=== PATIENT | male | born 1955 | race Caucasian/White ===

== ENCOUNTER → 2016-12-21 | Outpatient (CLI) | payer OTHER ==
[~2016-12-21] MED LIST: ACET-749 PO; AMLO-110 PO; ASCO1CAP3 PO; ASPCH81X PO; ASPI81TA28 PO; CEFT1INJ57 IV; CIPR1TAB10 PO; CLC100 PO; CMD5 PO; COEN100C11 PO; DOCU-94 PO; DOCU100C31 PO; DOXY100T PO; DTR5 PO; ENOX40IN SQ; EYE OPB; LOSA1TAB PO; LPR25 PO; LUTE6CAP PO; MULT-506 PO; OXYC-57 PO; SIMV20TA2 PO; TADA10TA PO; TADA20TA PO
[2016-12-21 14:33] LABS: BASO % 0.9 %; BASO ABS # 0.06 K/uL (0-0.2); COMPLETE YES; EOS % 5.2 %; HEMATOCRIT 47.4 % (42-52); IG% 0.6 %; LYMPH % 30.3 %; LYMPH ABS # 2.04 K/uL (1.2-3.4); MEAN CELL VOLUME 87.8 fL (80-100); MEAN CORPUSCULAR HEMOGLOBIN 31.5 pg (25-34); MEAN CORPUSCULAR HGB CONC 35.9 g/dl (32-36); MEAN PLATELET VOLUME 9.5 fL (7.4-10.4); MONO % 9.8 %; NEUT % 53.2 %; PLATELET COUNT 212 K/uL (130-400); WHITE BLOOD COUNT 6.73 K/uL (4.8-10.8)
[2016-12-21 16:24] LABS: ALT/SGPT 34 U/L (12-78); BLOOD UREA NITROGEN 18 mg/dl (7-18); BUN/CREATININE RATIO 13.5 (10-20); CALCIUM 8.9 mg/dl (8.5-10.1); CARBON DIOXIDE 26 mmol/L (21-32); CHLORIDE 105 mmol/L (98-107); CHOLESTEROL 156 mg/dl (0-200); GLUCOSE 115 mg/dl (70-99); POTASSIUM 4.5 mmol/L (3.5-5.1); SODIUM 141 mmol/L (136-145); TRIGLYCERIDES 114 mg/dl (0-150); VERY LOW DENSITY LIPOPROT CALC 23 mg/dl
[2016-12-21 16:29] LABS: ALB/GLOB RATIO 1.1 (0.9-2); ALKALINE PHOSPHATASE 66 U/L (45-117); AST/SGOT 25 U/L (15-37); CHOLESTEROL/HDL RATIO 3.6; HDL CHOLESTEROL 43 mg/dl; LDL CHOLESTEROL CALCULATED 90 mg/dl
== END | disposition home or self-care (01) ==
LOC: C.LABSPEC 13:36
PROVIDERS: ATTEND Family Medicine
DX: E78.2 Mixed hyperlipidemia (principal); I10 Essential (primary) hypertension; Z11.59 Encounter for screening for other viral diseases

== ENCOUNTER → 2016-12-25 | Outpatient (CLI) | payer OTHER | END | disposition home or self-care (01) | LOC: C.LABSPEC 13:56 | PROVIDERS: ATTEND Family Medicine | DX: R97.20 Elevated prostate specific antigen [PSA] (principal) ==

== ENCOUNTER → 2017-02-18 | Outpatient (CLI) | payer OTHER | LOC: C.PATHSPEC 17:50 | PROVIDERS: ATTEND Urology | DX: C61 Malignant neoplasm of prostate (principal) ==

== ENCOUNTER → 2017-03-15 | Outpatient (CLI) | payer OTHER ==
[~2017-03-15] MED LIST changes: +OPTIRAY 320 IV PRN
--- NOTE | 2017-03-15 08:01 | DIAGNOSTIC IMAGING REPORT ---
CT ABD/PELVIS IV CONTRAST ONLY CLINICAL HISTORY: C61 Prostate cancer COMPARISON STUDY: None. TECHNIQUE: Following the IV administration of 94 mL of Optiray-320, CT scan of the abdomen and pelvis was performed from the lung bases to the proximal femurs. Images are reviewed in the axial, sagittal, and coronal planes. IV contrast was administered without complication. CT DOSE: 1520.18 mGy.cm FINDINGS: Lower chest: There are mild right paraspinal atelectatic changes within the right lower lobe. Liver: There is mild hepatic steatosis. No focal masses are visualized. Gallbladder: Unremarkable. Spleen: Normal in size and attenuation. Pancreas: Unremarkable. Adrenal glands: Unremarkable. Kidneys: The 17 mm upper pole left renal cyst. No solid renal masses are visualized. There is no hydronephrosis. Bowel: There are no transition zones indicate bowel obstruction. The appendix appears normal. There is colonic diverticulosis. There are no acute peridiverticular inflammatory changes. Peritoneum: There is no free air. There is no ascites. There are postsurgical changes of a gastric banding procedure. Vasculature: The abdominal aorta is normal in course and caliber. Adenopathy: None. Pelvic viscera: The bladder, and pelvic viscera are unremarkable. Skeletal structures: No suspicious lytic or blastic lesions are visualized. IMPRESSION: No CT evidence of metastatic disease. Electronically signed by: Jl Gallego M.D. 03/15/2017 8:00 AM Dictated Date/Time: 03/15/2017 7:55 AM
--- NOTE | 2017-03-15 11:09 | DIAGNOSTIC IMAGING REPORT ---
WHOLE BODY BONE SCAN HISTORY: Prostate carcinoma C61 Prostate cancer RADIOTRACER: 26.1 mCi Tc-99m MDP STUDY/IMAGES: Planar anterior and posterior whole body imaging was performed 3 hours following the intravenous administration of radiotracer. COMPARISON: None. FINDINGS: Normal activity characteristics of the axial and appendicular skeleton. Minimal degenerative activity right knee. Minimal degenerative activity of the sternoclavicular and acromioclavicular joints. No evidence for bony metastatic change. IMPRESSION: Study is negative for metastatic bone disease. Electronically signed by: José Youngblood M.D. 03/15/2017 11:08 AM Dictated Date/Time: 03/15/2017 11:07 AM
== END ==
LOC: C.NUCL 06:56
PROVIDERS: ATTEND Urology
DX: C61 Malignant neoplasm of prostate (principal)

== ENCOUNTER 2017-05-11 09:44 | Inpatient (IN) | payer OTHER ==
[2017-04-29 14:38] VITALS: BMI 41.0
--- NOTE | 2017-04-29 15:24 | PAT Medication Instructions ---
Service Date Apr 29, 2017. Current Home Medication List Amlodipine (Norvasc), 5 MG PO QPM Ascorbic Acid (Vitamin C), 1 CAP PO QAM Aspirin (Aspirin Chewable), 81 MG PO QAM Coenzyme Q10 (Ubidecarenone) (Coq-10), 1 CAP PO QPM Losartan Potassium (Cozaar), 1 TAB PO QPM Lutein (Lutein), 1 CAP PO QAM Multivitamin (Multivitamin), 1 TAB PO QAM Simvastatin (Zocor), 1 TAB PO QPM Tadalafil (Cialis), 5 MG PO UD Medication Instructions For Your Scheduled Surgery - Hold the following medications starting 04/29/17: Coenzyme Q10 (Ubidecarenone) (Coq-10), 1 CAP PO QPM - Hold the following medications the morning of surgery: Multivitamin (Multivitamin), 1 TAB PO QAM Lutein (Lutein), 1 CAP PO QAM Ascorbic Acid (Vitamin C), 1 CAP PO QAM Tadalafil (Cialis), 5 MG PO UD PRN - Take the following medications the morning of surgery with a sip of water: Aspirin (Aspirin Chewable), 81 MG PO QAM (okay to continue per surgeon) - Hold the following medications as scheduled the night before surgery: Losartan Potassium (Cozaar), 1 TAB PO QPM - Take the following medications as scheduled the night before surgery: Simvastatin (Zocor), 1 TAB PO QPM Amlodipine (Norvasc), 5 MG PO QPM Tadalafil (Cialis), 5 MG PO UD PRN If you have any questions please call us at [phone] or [phone] or [phone]
--- NOTE | 2017-04-29 15:51 | DIAGNOSTIC IMAGING REPORT ---
CHEST PREADMISSION(PA/LAT) CLINICAL HISTORY: PAT preoperative evaluation COMPARISON STUDY: No previous studies for comparison. FINDINGS: The bones soft tissues and hemidiaphragms are normal. The cardiomediastinal silhouette is normal. The lungs are clear. The pulmonary vasculature is normal. IMPRESSION: Negative chest. Electronically signed by: José Youngblood M.D. 04/29/2017 3:50 PM Dictated Date/Time: 04/29/2017 3:50 PM
[2017-04-29 15:54] LABS: URINE APPEARANCE CLEAR (CLEAR); URINE BILIRUBIN NEG (NEG); URINE COLOR YELLOW; URINE NITRITE NEG (NEG); URINE PH 5.5 (4.5-7.5); UROBILINOGEN NEG (NEG)
[2017-04-29 15:55] LABS: MANUAL MICROSCOPIC REQUIRED? NO; REVIEW REQ? NO
[2017-04-29 15:56] LABS: BASO % 0.7 %; BASO ABS # 0.05 K/uL (0-0.2); COMPLETE YES; EOS % 4.4 %; HEMATOCRIT 46.9 % (42-52); IG% 0.4 %; LYMPH % 29.1 %; LYMPH ABS # 2.11 K/uL (1.2-3.4); MEAN CELL VOLUME 89.7 fL (80-100); MEAN CORPUSCULAR HEMOGLOBIN 31.7 pg (25-34); MEAN CORPUSCULAR HGB CONC 35.4 g/dl (32-36); MEAN PLATELET VOLUME 9.3 fL (7.4-10.4); MONO % 8.1 %; NEUT % 57.3 %; PLATELET COUNT 210 K/uL (130-400); RED BLOOD COUNT 5.23 M/uL (4.7-6.1); WHITE BLOOD COUNT 7.26 K/uL (4.8-10.8)
[2017-04-29 16:57] LABS: BUN/CREATININE RATIO 13.8 (10-20); CREATININE 1.3 mg/dl (0.60-1.40); POTASSIUM 4.6 mmol/L (3.5-5.1)
[~2017-05-11] VITALS: Ht 180.3 cm; Wt 134.1 kg
[2017-05-11] VITALS (7 sets, daily range): BP systolic 113–137; BP diastolic 76–95; PULSE 83–92; TEMP 36.1–36.7; O2SAT 92–97; Ht 180.3 cm; Wt 134.1 kg
[~2017-05-11 09:44] MED LIST changes: -ACET-749 PO; -AMLO-110 PO; -ASCO1CAP3 PO; -ASPI81TA28 PO; +CEFAZOLIN 2000 MG/60 ML D5W IV SCH; +CEFAZOLIN 3000 MG/65 ML D5W 65 ML IV SCH; -CEFT1INJ57 IV; -CIPR1TAB10 PO; -CLC100 PO; -CMD5 PO; -COEN100C11 PO; -DOCU-94 PO; -DOCU100C31 PO; -DOXY100T PO; -DTR5 PO; -ENOX40IN SQ; -EYE OPB; +HEPARIN SOD 5000 UNIT/0.5 ML CARP SQ SCH; +LACTATED RINGER'S 1000ML 1,000 ML IV SCH; -LOSA1TAB PO; -LPR25 PO; -LUTE6CAP PO; -MULT-506 PO; -OPTIRAY 320 IV PRN; -OXYC-57 PO; -SIMV20TA2 PO; -TADA20TA PO
--- NOTE | 2017-05-11 10:21 | History & Physical Bridge Note ---
H&P Re-Evaluation Bridge Note: I have examined the patient, reviewed the History & Physical and in the interval since the performance of the History & Physical I have noted the following changes of clinical significance: No changes noted
[2017-05-11] MEDS ORDERED: DEXAMETHASONE SOD INJ 4 MG/ML VIAL ONE (10:23)
[2017-05-11] MEDS ORDERED: BUPIVACAINE 0.5 % 5 MG/1 ML MPF 30ML VIAL ONE (10:23)
[2017-05-11] MEDS ORDERED: NEOSTIGMINE METHYLSULFATE 5 MG/5 ML SYR ONE (10:23)
[2017-05-11] MEDS ORDERED: ONDANSETRON INJ 2 MG/ML 2 ML VIAL ONE ×2 (10:23→13:30)
[2017-05-11] MEDS ORDERED: METHYLENE BLUE 0.5% 10 ML VIAL ONE (10:23)
[2017-05-11] MEDS ORDERED: PROPOFOL IV EMULSION 10 MG/ML 20 ML VIAL IV ONE (10:23)
[2017-05-11] MEDS ORDERED: FENTANYL CITRATE INJ 50 MCG/1 ML 2 ML VIAL ONE ×3 (10:23→13:25)
[2017-05-11] MEDS ORDERED: MIDAZOLAM HCL 1 MG/ML 2ML VIAL ONE (10:23)
[2017-05-11] MEDS ORDERED: GLYCOPYRROLATE INJ 0.2 MG/ML VIAL ONE (10:23)
[2017-05-11] MEDS ORDERED: EYE OPB (10:24)
[2017-05-11] MEDS ORDERED: BELLADONNA/OPIUM SUPP 60 MG SUPP PR ONE ×2 (11:16→11:18)
[2017-05-11] MEDS ORDERED: HYDROmorphone INJ 2 MG/ML SYR/VIAL ONE (11:27)
[2017-05-11] MEDS ORDERED: ACETAMINOPHEN 1000 MG/100 ML IV IV ONE (12:19)
[2017-05-11] MEDS ORDERED: SURGICEL ABSORB HEMOSTAT 2IN X 14IN TOP ONE (12:51)
[2017-05-11] MEDS ORDERED: FLOSEAL HEMOSTATIC MATRIX 10ML TOP ONE (12:51)
[2017-05-11] MEDS ORDERED: METOPROLOL TARTRATE 1 MG/ML VIAL ONE (13:25)
[2017-05-11] MEDS ORDERED: EpHEDrine SULFATE INJ 50 MG/ML AMP IV PRN (13:30)
[2017-05-11] MEDS ORDERED: HYDROmorphone INJ 1 MG/ML SYR IV PRN ×2 (13:30→13:45)
[2017-05-11] MEDS ORDERED: PROMETHAZINE HCL INJ 6.25 MG in SODIUM CHLORIDE 0.9% 50ML 50 ML IV PRN (13:30)
[2017-05-11] MEDS ORDERED: ATROPINE SULFATE 0.1 MG/ML 5ML SYR IV PRN (13:30)
[2017-05-11] MEDS ORDERED: ONDANSETRON INJ 2 MG/ML 2 ML VIAL IV PRN ×2 (13:30→13:45)
[2017-05-11] MEDS ORDERED: FENTANYL CITRATE INJ 50 MCG/1 ML 2 ML VIAL IV PRN (13:30)
[2017-05-11] MEDS ORDERED: SODIUM CHLORIDE 0.9% INJ 10 ML VIAL ONE (13:39)
[2017-05-11] MEDS ORDERED: KETOROLAC TROMETHAMINE 30 MG/ML VIAL IV. PRN (13:45)
[2017-05-11] MEDS ORDERED: OXYBUTYNIN CHLORIDE 5 MG TAB PO PRN (13:45)
[2017-05-11] MEDS ORDERED: ACETAMINOPHEN/CODEINE 300/30MG TAB PO PRN (13:45)
--- NOTE | 2017-05-11 14:10 | [facility] Operative Report ---
Operative Report Operative Date May 11, 2017. Pre-Operative Diagnosis Prostate cancer Post-Operative Diagnosis Same as preoperative diagnosis Procedure(s) Performed Laparoscopic Prostatectomy and bilateral pelvic lymph node dissection Juany Surgeon Dr. Hudson Sole Seamer Surgeon(s) NENITA Randolph Estimated Blood Loss 100 mL Findings As per dictation Specimens Permanent Specimens A: Periprostatic Fat B: Prostate and seminal vesicles C: Right pelvic lymph nodes D: Left pelvic lymph nodes Drains Zapata catheter Anesthesia Gen. Complication(s) None Disposition Recovery Room / PACU (stable) Indications Prostate cancer Description of Procedure Javad Sesay was identified in the preoperative holding area and appropriate informed consents were reviewed and completed and the patient was transported to the operating suite. Upon arrival to received appropriate preoperative antibiotics in the form of Ancef as well as general anesthesia. He was placed in dorsal lithotomy position where he was sterilely prepped and draped in standard fashion. Beginning the case a Zapata catheter was inserted. A Veress needle was then passed per umbilicus. His abdomen was insufflated to 15 mmHg without incident. I proceeded to place a 12 mm Visiport with 10 mm 0 laparoscope via a supra umbilical incision. Full inspection of the abdomen was carried out. There is no evidence of trauma from the Veress needle passage. Anterior abdominal wall was free of adhesions and all desired port sites were clear of adhesions. I proceeded to place all ports in standard robotic prostatectomy fashion. We then docked the robot. To begin the robotic portion of the case I mobilized the left lateral aspect of the sigmoid colon with there were slight adhesions. This opened the pouch of Joshua completely. I then proceeded to incise the peritoneum lateral to the umbilical ligaments on both the right and the left. I transected the umbilical ligaments at the inferior aspect of the umbilicus. I cared my peritoneal incision down to the medial aspect of the internal inguinal rings on both the right and the left. I identified the vasa in both locations. I then proceeded to dissect underneath the pubic arch exposing the anterior surface the prostate. Superficial fat was excised from the prostate as well as the endopelvic fascia. Then proceeded to open endopelvic fascia beginning at the right base and caring my dissection towards the apex. The lateral levator musculature was spared. All periurethral musculature was spared. The lateral aspect of the urethra was visualized. A mirro image procedure was performed in the left side. After thinning the puboprostatic ligaments slightly bilaterally I controlled the dorsal venous complex utilizing a 0 Vicryl [id number] stitch. There was excellent hemostasis. I then moved on to the lymph node dissection. Vasculature on the lateral pelvic wall was identified. I elevated the fat off the inferior aspect of the external iliac vein. A separate this from the remaining cared my dissection laterally as far as the circumflex vein. The lymphatic packet immediately posterior to this fat was excised en bloc. I utilized monopolar and bipolar electrocautery to obtain excellent hemostasis. I carried my dissection posteriorly and distally as far as the obturator nerve. Extreme care was used to preserve the nerve. I control the most proximal extent of this packet utilizing bipolar electrocautery. This lymphatic packet was then withdrawn via the 12 mm senior executive assistant port. I then performed the same procedure on the left side. After identifying the vascular elements of the left pelvic wall, I elevated the fat off the inferior aspect of the external iliac vein. I dissected laterally as far as the circumflex vein. Lymphatic packet immediately behind this fatty tissue was excised. I cared my dissection inferior to the pubic arch until I encountered the obturator nerve. Care was used to preserve the nerve. The packet was traced up the nerve to its most proximal extent. I controlled the proximal extent of this packet utilizing bipolar electrocautery. This specimen was withdrawn via the 12 mm senior executive assistant port. I then returned to my attention to the prostate. With gentle traction on the Zapata catheter and lateral to medial traction from my instruments I was able to demarcate the bladder neck. An anterior cystotomy was created utilizing monopolar electrocautery. I deflated the Zapata balloon and pulled Zapata catheter through this anterior cystotomy to apply anterior traction on the prostate. I then dissected laterally around the bladder neck attempting to spare all bladder neck musculature. I carried my dissection through the posterior bladder neck identifying the different layers of the detrusor muscle. This dissection was completed when I reached the vasa. The vasa were then dissected for approximately 3-4 cm in length. They were subsequently transected. I utilized these vasa to help elevate the prostate further while I dissected the bilateral seminal vesicles without incident. Minimal cautery was used around these seminal vesicles and at that bipolar cautery only. There was excellent hemostasis. I then utilized the seminal vesicles to help elevate the prostate while I performed a posterior dissection. I split Denonvilliers's fascia as I dissected from the base towards the apex of the prostate. After carrying this maximally towards the apex I proceeded to dissect laterally until I encountered in the medial aspect of the neurovascular bundles. I then turned my attention to the control of the vascular pedicles. The lateral prostatic fascia was incised. The vascular pedicles were divided into approximately 4 packets and controlled with Weck clips. On the right hand side I performed an aggressive nerve sparing. On the left- hand side, I performed a more guarded nerve sparing. At that time only apical attachments remained. With a Zapata catheter in place, I was able to dissect through the dorsal venous complex immediately proximal to the previously placed DVC stitch. The apex of the prostate was dissected utilizing a combination of monopolar electrocautery and sharp dissection. After sparing maximal urethral length, I transected the urethra cold over top of the Zapata catheter. The prostate was then removed and was collected in an Endo Catch bag and passed to the upper abdomen. I ensured excellent hemostasis from the prostatic fossa before proceeding. I then passed a double armed V lock stitch into the abdomen. A standard running anastomosis was performed beginning at the posterior bladder neck and completed at the anterior surface of the anastomosis. There appeared to be excellent approximation. A new Zapata catheter was inserted without incident. The anastomosis was tested with sterile saline, there is no evidence of leak. We then placed FloSeal coagulant around the anastomosis. No CHARO drain was used . A specimen bag was collected through the camera port. The robot was undocked. The proceeded to expand the supraumbilical port to extract the specimen. Fascia was closed with 3 figure-of -eight 0 PDS stitches. All robotic ports were closed with 4-0 Monocryl. The right lateral most senior executive assistant port was closed utilizing 2 layers. The deep layer of 0 Vicryl [id number] fashion followed by 4-0 Monocryl on the skin. All wounds were infiltrated with half percent Marcaine. Dermabond was placed over the incisions. The case was subsequently concluded and the patient was extubated and taken to the PACU in stable condition. There were no complications. I attest to the content of the Intraoperative Record and any orders documented therein. Any exceptions are noted below. I attest to the content of the Intraoperative Record and any orders documented therein. Any exceptions are noted below.
[2017-05-11 14:43] LABS: HEMATOCRIT 46.3 % (42-52); MEAN CELL VOLUME 90.3 fL (80-100); MEAN CORPUSCULAR HEMOGLOBIN 31.8 pg (25-34); MEAN PLATELET VOLUME 9.1 fL (7.4-10.4); PLATELET COUNT 206 K/uL (130-400); RED BLOOD COUNT 5.13 M/uL (4.7-6.1); WHITE BLOOD COUNT 10.05 K/uL (4.8-10.8)
[2017-05-11 14:52] LABS: MEAN CORPUSCULAR HGB CONC 35.2 g/dl (32-36)
[2017-05-11 15:11] LABS: BUN/CREATININE RATIO 11.9 (10-20); CALCIUM 8.8 mg/dl (8.5-10.1); CREATININE 1.3 mg/dl (0.60-1.40); POTASSIUM 4.8 mmol/L (3.5-5.1)
--- NOTE | 2017-05-11 15:20 | Anesthesiology Progress Note ---
Anesthesia Post Op Note Date & Time May 11, 2017 at 15:20 Vital Signs Pain Intensity: 0 Vital Signs Past 12 Hours Date Time Temp Pulse Resp B/P (MAP) Pulse Ox O2 Delivery O2 Flow Rate FiO2 05/11/17 14:47 36.2 80 20 109/83 96 Nasal Cannula 2 05/11/17 14:01 36.2 100 16 129/84 97 Mask 10 05/11/17 10:14 36.6 88 18 131/87 (102) 97 Room Air Notes Mental Status: alert / awake / arousable, participated in evaluation Pt Amnestic to Procedure: Yes Nausea / Vomiting: adequately controlled Pain: adequately controlled Airway Patency, RR, SpO2: stable & adequate BP & HR: stable & adequate Hydration State: stable & adequate Anesthetic Complications: no major complications apparent
[2017-05-11 17:49] LABS: INR 1.1 (0.9-1.1); PROTHROMBIN TIME (PATIENT) 11.5 SECONDS (9.0-12.0)
[2017-05-11] MEDS: CEFAZOLIN IV 3,000 MG in DEXTROSE 5% 50ML 50 ML IV SCH (17:59)
[2017-05-11] MEDS: ACETAMINOPHEN 500 MG TAB PO SCH (18:00)
[2017-05-11] MEDS: LACTATED RINGER'S 1000ML 1,000 ML IV SCH (18:00)
[2017-05-11] MEDS ORDERED: AMLODIPINE BESYLATE 5 MG TAB PO SCH (21:00)
[2017-05-11] MEDS ORDERED: LOSARTAN POTASSIUM 25 MG TAB PO SCH (21:00)
[2017-05-11] MEDS ORDERED: ARTIFICIAL TEARS OP OINT 3.5 GM TUBE OPB SCH (21:00)
[2017-05-11] MEDS ORDERED: SIMVASTATIN 20 MG TAB PO SCH (21:00)
[2017-05-11] MEDS: DOCUSATE SODIUM 100 MG CAP PO SCH (21:04)
[2017-05-11] MEDS: HEPARIN SOD 5000 UNIT/0.5 ML CARP SQ SCH (22:06)
[2017-05-12] MEDS: LACTATED RINGER'S 1000ML 1,000 ML IV SCH ×3 (00:51→12:30)
[2017-05-12] MEDS: ACETAMINOPHEN 500 MG TAB PO SCH ×3 (00:51→12:36)
[2017-05-12] MEDS: CEFAZOLIN IV 3,000 MG in DEXTROSE 5% 50ML 50 ML IV SCH ×2 (02:21→10:26)
[2017-05-12 03:25] VITALS: BP 109/68; PULSE 82; TEMP 36.7; O2SAT 94
[2017-05-12 06:48] LABS: MEAN CORPUSCULAR HGB CONC 34.5 g/dl (32-36); MEAN PLATELET VOLUME 9.3 fL (7.4-10.4); PLATELET COUNT 236 K/uL (130-400)
[2017-05-12 07:24] LABS: BUN/CREATININE RATIO 12.9 (10-20); CALCIUM 8.8 mg/dl (8.5-10.1); CREATININE 1.2 mg/dl (0.60-1.40); POTASSIUM 4.5 mmol/L (3.5-5.1)
--- NOTE | 2017-05-12 07:35 | Anesthesiology Progress Note ---
Anesthesia Post Op Note Date & Time May 12, 2017 at 07:34 Vital Signs Vital Signs Past 12 Hours Date Time Temp Pulse Resp B/P (MAP) Pulse Ox O2 Delivery O2 Flow Rate FiO2 05/12/17 03:25 36.7 82 18 109/68 (82) 94 Room Air 05/12/17 00:05 Room Air 05/11/17 23:08 36.6 83 19 116/77 (90) 94 Room Air Notes Mental Status: alert / awake / arousable, participated in evaluation Pt Amnestic to Procedure: Yes Nausea / Vomiting: adequately controlled Pain: adequately controlled Airway Patency, RR, SpO2: stable & adequate BP & HR: stable & adequate Hydration State: stable & adequate Anesthetic Complications: no major complications apparent
[2017-05-12 07:41] LABS: BASO % 0.1 %; BASO ABS # 0.01 K/uL (0-0.2); COMPLETE YES; HEMATOCRIT 45.5 % (42-52); IG% 0.3 %; LYMPH % 9.9 %; LYMPH ABS # 1.68 K/uL (1.2-3.4); MEAN CELL VOLUME 89.2 fL (80-100); MEAN CORPUSCULAR HEMOGLOBIN 30.8 pg (25-34); MONO % 5.8 %; NEUT % 83.9 %; WHITE BLOOD COUNT 16.96 K/uL (4.8-10.8)
--- NOTE | 2017-05-12 08:04 | Progress Note ---
Progress Note Date of Service May 12, 2017. Progress Note S: Doing well - ambulatory last night - denies any pain - tolerating PO O: 05/12/17 05:51 Red Blood Count 5.10, Mean Corpuscular Volume 89.2, Mean Corpuscular Hemoglobin 30.8, Mean Corpuscular Hemoglobin Concent 34.5, Mean Platelet Volume 9.3, Neutrophils (%) (Auto) 83.9, Lymphocytes (%) (Auto) 9.9, Monocytes (%) (Auto) 5.8, Eosinophils (%) (Auto) 0.0, Basophils (%) (Auto) 0.1, Neutrophils # (Auto) 14.24, Lymphocytes # (Auto) 1.68, Monocytes # (Auto) 0.98, Eosinophils # (Auto) 0.00, Basophils # (Auto) 0.01 05/12/17 05:51 Test 05/11/17 17:29 05/12/17 05:51 Prothrombin Time 11.5 SECONDS (9.0-12.0) Prothromb Time International Ratio 1.1 (0.9-1.1) White Blood Count 16.96 K/uL (4.8-10.8) Red Blood Count 5.10 M/uL (4.7-6.1) Hemoglobin 15.7 g/dL (14.0-18.0) Hematocrit 45.5 % (42-52) Mean Corpuscular Volume 89.2 fL (80-100) Mean Corpuscular Hemoglobin 30.8 pg (25-34) Mean Corpuscular Hemoglobin Concent 34.5 g/dl (32-36) Platelet Count 236 K/uL (130-400) Mean Platelet Volume 9.3 fL (7.4-10.4) Neutrophils (%) (Auto) 83.9 % Lymphocytes (%) (Auto) 9.9 % Monocytes (%) (Auto) 5.8 % Eosinophils (%) (Auto) 0.0 % Basophils (%) (Auto) 0.1 % Neutrophils # (Auto) 14.24 K/uL (1.4-6.5) Lymphocytes # (Auto) 1.68 K/uL (1.2-3.4) Monocytes # (Auto) 0.98 K/uL (0.11-0.59) Eosinophils # (Auto) 0.00 K/uL (0-0.5) Basophils # (Auto) 0.01 K/uL (0-0.2) RDW Standard Deviation 44.6 fL (36.4-46.3) RDW Coefficient of Variation 13.6 % (11.5-14.5) Immature Granulocyte % (Auto) 0.3 % Immature Granulocyte # (Auto) 0.05 K/uL (0.00-0.02) Anion Gap 10.0 mmol/L (3-11) Est Creatinine Clear Calc Drug Dose 88.0 ml/min Estimated GFR () 74.1 Estimated GFR (Non- 64.0 BUN/Creatinine Ratio 12.9 (10-20) Calcium Level 8.8 mg/dl (8.5-10.1) Vital Signs Past 12 Hours Date Time Temp Pulse Resp B/P (MAP) Pulse Ox O2 Delivery O2 Flow Rate FiO2 05/12/17 03:25 36.7 82 18 109/68 (82) 94 Room Air 05/12/17 00:05 Room Air 05/11/17 23:08 36.6 83 19 116/77 (90) 94 Room Air NAD AAOx3 no resp distress abd soft - incisions without signs of infection no lower extremity edema A/P: POD#1 s/p RALP - doing very well - advance diet - ambulate - home later today with a catheter
[2017-05-12 08:17] VITALS: BP 130/76; PULSE 70; TEMP 36.6; O2SAT 93
[2017-05-12] MEDS ORDERED: MULTIVITAMIN TAB PO SCH (09:00)
[2017-05-12] MEDS ORDERED: ASCORBIC ACID 500 MG TAB PO SCH (09:00)
[2017-05-12] MEDS ORDERED: NON-FORMULARY MEDICATION (Lutein 1 CAP) PO SCH (09:00)
[2017-05-12] MEDS ORDERED: ASPIRIN 81 MG ECTAB PO SCH (09:00)
[2017-05-12] MEDS: DOCUSATE SODIUM 100 MG CAP PO SCH (09:14)
[2017-05-12] MEDS ORDERED: DTR5 PO (09:23)
[2017-05-12] MEDS ORDERED: CLC100 PO (09:23)
[2017-05-12] MEDS ORDERED: CIPR1TAB10 PO (09:23)
[2017-05-12] MEDS ORDERED: ACET-749 PO (09:23)
--- NOTE | 2017-05-12 09:26 | Discharge Instructions ---
Discharge Instructions Date of Service May 12, 2017. Admission Reason for Admission: Prostate Cancer Discharge Discharge Diagnosis / Problem: Prostate Cancer Discharge Goals Goal(s): Decrease discomfort, Increase independence, Improve disease control, Therapeutic intervention Activity Recommendations Activity Limitations: per Instructions/Follow-up section Shower/Bathe: tomorrow 1. Do not lift >15lbs x 6 weeks. 2. No heavy exercise x 6 weeks. You may engage in light activity such as walking and stairs as tolerated. 3. No sexual intercourse until cleared by Dr. Daigle or Dr. Hudson. 4. Do not drive x [address] while taking narcotics. 5. You have been prescribed the antibiotic Ciprofloxacin. Start this antibiotic 2 days prior to leon catheter removal. Finish all of the antibiotic you have been prescribed. 6. Immediately call our office at [phone] if your catheter is removed for any reason. 7. Follow-up as scheduled. Please call our office at [phone] if you need to reschedule for any reason. 8. You may resume taking Cialis after cleared to do so by Dr. Hudson. . Current Hospital Diet Hospital Diet(s): Regular Diet Discharge Diet Recommended Diet: AHA Diet (Heart Healthy) Procedures Procedures Performed: Laparoscopic Prostatectomy and bilateral pelvic lymph node dissection DaVinci Pending Studies Studies pending at discharge: yes (prostate pathology) List of pending studies: prostate and lymph node pathology Medical Emergencies . Who to Call and When: Medical Emergencies: If at any time you feel your situation is an emergency, please call 911 immediately. . Non-Emergent Contact Non-Emergency issues call your: Urologist Call Non-Emergent contact if: temperature is above 101.5, your pain is not controlled, your pain is worsening, your pain is unusual for you, your pain is concerning you, wound has increased drainage, wound has increased redness, wound has increased pain, you have any medication questions . . "Provider Documentation" section prepared by Lexus Nuno. . VTE Core Measure Inpt VTE Proph given/why not?: Unfractionated heparin SQ, SCD's [place] Drug Monitoring Program Search Results: patient reviewed within database, no issues identified
[2017-05-12 10:06] VITALS: O2SAT 93
[2017-05-12] MEDS: HEPARIN SOD 5000 UNIT/0.5 ML CARP SQ SCH (10:31)
[2017-05-12 11:53] VITALS: BP 146/82; PULSE 69; TEMP 36.6; O2SAT 95
[2017-05-12 13:20] VITALS: BP 146/82; PULSE 69; TEMP 36.6; O2SAT 95
--- NOTE | 2017-05-17 07:19 | Discharge Summary ---
Discharge Summary Date of Service May 17, 2017. Discharge Summary Admission Date: May 11, 2017 at 10:35 Discharge Date: May 12, 2017 Discharge Disposition: Home Principal Diagnosis: Prostate cancer Procedures: Robotic prostatectomy with lymph node dissection Medication Reconciliation New Medications: Ciprofloxacin Hcl (Cipro) 500 Mg Tab 500 MG PO BID, #10 TAB Start 2 days prior to leon catheter removal. Acetaminophen/Codeine (Tylenol W/Codeine #3) 300 Mg/30 Mg Tab 1-2 TAB PO Q4H PRN for Pain, #20 TAB 0 Refills Docusate Sodium (Docusate Sodium) 100 Mg Cap 100 MG PO BID PRN for Constipation, #60 CAP 0 Refills Oxybutynin Chloride (Oxybutynin Chloride) 5 Mg Tab 5 MG PO Q8H PRN for BLADDER SPASMS, #30 TAB 0 Refills Continued Medications: Amlodipine (Norvasc) 5 Mg Tab 5 MG PO QPM, TAB Ascorbic Acid (Vitamin C) 500 Mg Cap 1 CAP PO QAM Aspirin (Aspirin Chewable) 81 Mg Chew 81 MG PO QAM Coenzyme Q10 (Ubidecarenone) (Coq-10) 100 Mg Cap 1 CAP PO QPM Losartan Potassium (Cozaar) 25 Mg Tab 1 TAB PO QPM for 30 Days, TAB 5 Refills Lutein (Lutein) 6 Mg Cap 1 CAP PO QAM Multivitamin (Multivitamin) Tab 1 TAB PO QAM, TAB Simvastatin (Zocor) 20 Mg Tab 1 TAB PO QPM for 90 Days, TAB 1 Refill [eye ointment] () 1 APPLN OPB HS use over the counter ointment - one small application to each eye at bedtime- for dry eyes Discontinued Medications: Tadalafil (Cialis) 10 Mg Tab 5 MG PO UD, TAB Hospital Course Josse Harrell was admitted for robotic prostatectomy secondary to a prior diagnosis of prostate cancer. Details of this procedure are as dictated previously an operative report. In summary, he tolerated the procedure extremely well. He was transferred to the floor in stable condition. His laboratory examinations and overall status were stable in the morning of postoperative day 1. He was ambulatory and tolerating a by mouth diet. He was deemed stable for discharge home at that time and was discharged home with a Leon catheter in place. Total time spent on discharge = This includes examination of the patient, discharge planning, medication reconciliation, and communication with other providers. Discharge Instructions Please see previously written discharge instructions
[2017-06-25] MEDS ORDERED: MULT-506 PO (09:16)
[2017-06-25] MEDS ORDERED: COEN100C11 PO (09:16)
[2017-06-25] MEDS ORDERED: LOSA1TAB PO (09:16)
[2017-06-25] MEDS ORDERED: ASCO1CAP3 PO (09:16)
[2017-06-25] MEDS ORDERED: SIMV20TA2 PO (09:16)
[2017-06-25] MEDS ORDERED: AMLO-110 PO (09:16)
[2017-06-25] MEDS ORDERED: LUTE6CAP PO (09:16)
[2017-07-04] MEDS ORDERED: ENOX40IN SQ (13:16)
[2017-07-04] MEDS ORDERED: LPR25 PO (13:16)
[2017-07-04] MEDS ORDERED: CEFT1INJ57 IV (13:16)
[2017-07-04] MEDS ORDERED: CMD5 PO (13:16)
== END 2017-05-12 13:40 | disposition home or self-care (01) | DRG 708 ==
LOC: C.ACU 09:44 → C.MSW 10:35 → ENRESERV 15:21
PROVIDERS: ADMIT Urology; ATTEND Urology
PROC: 8E0W4CZ Robotic Assisted Procedure of Trunk Region, Percutaneous Endoscopic Approach (ICD-10-PCS; principal; 2017-05-11 11:45)
PROC: 0VT34ZZ Resection of Bilateral Seminal Vesicles, Percutaneous Endoscopic Approach (ICD-10-PCS; principal; 2017-05-11 11:45)
PROC: 0VT04ZZ Resection of Prostate, Percutaneous Endoscopic Approach (ICD-10-PCS; principal; 2017-05-11 11:45)
PROC: 07BC4ZX Excision of Pelvis Lymphatic, Percutaneous Endoscopic Approach, Diagnostic (ICD-10-PCS; principal; 2017-05-11 11:45)
DX: C61 Malignant neoplasm of prostate (principal); N40.0 Benign prostatic hyperplasia without lower urinary tract symptoms; I10 Essential (primary) hypertension; Z83.3 Family history of diabetes mellitus; Z84.1 Family history of disorders of kidney and ureter; Z82.49 Family history of ischemic heart disease and other diseases of the circulatory system; Z80.42 Family history of malignant neoplasm of prostate; F17.200 Nicotine dependence, unspecified, uncomplicated; Z79.82 Long term (current) use of aspirin

== ENCOUNTER → 2017-06-14 | Outpatient (CLI) | payer OTHER ==
[~2017-06-14] MED LIST changes: +ACET-749 PO; +AMLO-110 PO; +ASCO1CAP3 PO; +ASPI81TA28 PO; -CEFAZOLIN 2000 MG/60 ML D5W IV SCH; -CEFAZOLIN 3000 MG/65 ML D5W 65 ML IV SCH; +CEFT1INJ57 IV; +CIPR1TAB10 PO; +CLC100 PO; +CMD5 PO; +COEN100C11 PO; +DOCU-94 PO; +DOCU100C31 PO; +DOXY100T PO; +DTR5 PO; +ENOX40IN SQ; +EYE OPB; -HEPARIN SOD 5000 UNIT/0.5 ML CARP SQ SCH; -LACTATED RINGER'S 1000ML 1,000 ML IV SCH; +LOSA1TAB PO; +LPR25 PO; +LUTE6CAP PO; +MULT-506 PO; +OXYC-57 PO; +SIMV20TA2 PO; -TADA10TA PO; +TADA20TA PO
[2017-06-14 14:01] LABS: ALT/SGPT 29 U/L (12-78); AST/SGOT 23 U/L (15-37); BLOOD UREA NITROGEN 15 mg/dl (7-18); BUN/CREATININE RATIO 12.2 (10-20); CALCIUM 8.7 mg/dl (8.5-10.1); CARBON DIOXIDE 26 mmol/L (21-32); CHLORIDE 108 mmol/L (98-107); CHOLESTEROL 149 mg/dl (0-200); GLUCOSE 104 mg/dl (70-99); POTASSIUM 4.3 mmol/L (3.5-5.1); SODIUM 139 mmol/L (136-145); TRIGLYCERIDES 129 mg/dl (0-150); VERY LOW DENSITY LIPOPROT CALC 26 mg/dl
[2017-06-14 14:04] LABS: ALB/GLOB RATIO 1.1 (0.9-2); ALKALINE PHOSPHATASE 67 U/L (45-117); BASO % 0.9 %; BASO ABS # 0.05 K/uL (0-0.2); CHOLESTEROL/HDL RATIO 3.6; COMPLETE YES; EOS % 10.1 %; HDL CHOLESTEROL 41 mg/dl; HEMATOCRIT 44.1 % (42-52); IG% 0.4 %; LDL CHOLESTEROL CALCULATED 82 mg/dl; LYMPH % 26.6 %; LYMPH ABS # 1.51 K/uL (1.2-3.4); MEAN CELL VOLUME 90.7 fL (80-100); MEAN CORPUSCULAR HEMOGLOBIN 31.3 pg (25-34); MEAN CORPUSCULAR HGB CONC 34.5 g/dl (32-36); MEAN PLATELET VOLUME 9.5 fL (7.4-10.4); MONO % 11.6 %; NEUT % 50.4 %; PLATELET COUNT 188 K/uL (130-400); RED BLOOD COUNT 4.86 M/uL (4.7-6.1); WHITE BLOOD COUNT 5.67 K/uL (4.8-10.8)
== END | disposition home or self-care (01) ==
LOC: C.LABSPEC 13:19
PROVIDERS: ATTEND Family Medicine
DX: I10 Essential (primary) hypertension (principal); E78.2 Mixed hyperlipidemia; C61 Malignant neoplasm of prostate

== ENCOUNTER 2017-06-25 14:17 | Inpatient (IN) | payer OTHER ==
[~2017-06-25] VITALS: Ht 180.3 cm; Wt 125.0 kg
[~2017-06-25 14:17] MED LIST changes: -ASPI81TA28 PO; -CEFT1INJ57 IV; -CMD5 PO; -DOCU-94 PO; -DOCU100C31 PO; -DOXY100T PO; -ENOX40IN SQ; -LPR25 PO; -OXYC-57 PO; -TADA20TA PO
--- NOTE | 2017-06-25 15:07 | EMERGENCY ROOM VISIT NOTE ---
History Report prepared by Farooq: Rome Galo Under the Supervision of: Dr. Tommy Serrano M.D. First contact with patient: 15:02 Chief Complaint: SHORTNESS OF BREATH Stated Complaint: SOB - STOMACH PAIN - RECURRING LOW GRADE FEVER Nursing Triage Summary: "Since last Wednesday, I have had chest congestion, SOB and intermittent fevers and headaches. I had my prostate out 06/07, I'm on antibiotics." per pt. History of Present Illness The patient is a 61 year old male who presents to the Emergency Room with complaints of a persistent illness that started 11 days ago. He says that he had a prostatectomy 18 days ago. The patient notes that a week, he started having a low grade fever, the highest being 101 last night. He says that he has been taking Tylenol, which resolves the fever, but the fever keeps reoccurring. The patient adds that he has had chills, shortness of breath and abdominal pain when he coughs. He states that he has had a minimal appetite, and he started have a bit of diarrhea yesterday. The patient notes that he has had headaches as well, which he has been taking Tylenol for. The patient says that he had a follow up appointment with his urologist (Dr. Hudson) a couple days ago with his doctor, and the doctor said that the patient's test results were good, but did prescribe the patient Doxycycline for his illness. The patient was told to come back for a chest x-ray and CT scan if his symptoms did not start to resolve within a few days, but his symptoms have persisted, so he called his doctor again, who told the patient to come here. The patient denies any nausea, vomiting, chest pain, back pain, urinary symptoms, hematochezia, or melena. He says that he rarely smokes cigarettes. He has a history of an irregular heartbeat, and takes 81 mg Aspirin daily, but he did skip his dose the past 2 days. He has no history of clots in his legs or lungs, nor any history of heart disease. Source of History: patient Onset: 11 days ago Position: other (global - illness) Timing: other (persistent) Associated Symptoms: + fevers, + chills, + headache, + cough, + SOB, + abdominal pain, + diarrhea, No chest pain, No nausea, No vomiting, No back pain , No melena, No hematochezia, No urinary symptoms Note: Associated symptoms: Minimal appetite. Review of Systems See HPI for pertinent positives and negatives. A total of ten systems were reviewed and were otherwise negative. Past Medical & Surgical Medical Problems: (1) HTN (hypertension) Surgical Problems: (1) History of prostatectomy Family History Cancer Diabetes mellitus Heart disease Hypertension Kidney disease Social History Smoking Status: Light Tobacco Smoker Alcohol Use: occasionally Marital Status: Housing Status: lives with family Occupation Status: employed Current/Historical Medications Scheduled Amlodipine (Norvasc), 5 MG PO QPM Ascorbic Acid (Vitamin C), 500 MG PO QAM Aspirin (Aspirin Ec), 81 MG PO QAM Coenzyme Q10 (Ubidecarenone) (Coq-10), 100 MG PO QPM Docusate Sodium (Docusate Sodium), 100 MG PO BID Doxycycline Hyclate (Doxycycline Hyclate), 100 MG PO Q12 Losartan Potassium (Cozaar), 25 MG PO QPM Lutein (Lutein), 6 MG PO QAM Multivitamin (Multivitamin), 1 TAB PO QAM Simvastatin (Zocor), 120 MG PO QPM Tadalafil (Cialis), 20 MG PO UD Allergies Coded Allergies: Sulfa Antibiotics (Verified Allergy, Unknown, Hives, 05/11/17) Physical Exam Vital Signs Date Time Temp Pulse Resp B/P (MAP) Pulse Ox O2 Delivery O2 Flow Rate FiO2 06/25/17 20:02 115 22 142/74 96 Room Air 06/25/17 14:25 95 Room Air 06/25/17 14:23 36.7 120 22 127/83 95 Room Air Physical Exam GENERAL: Awake, alert, well-appearing, in no distress HENT: Normocephalic, atraumatic. Oropharynx unremarkable. Dry mucous membranes. EYES: Normal conjunctiva. Sclera non-icteric. NECK: Supple. No nuchal rigidity. FROM. No JVD. RESPIRATORY: Clear to auscultation. CARDIAC: IRIR. Extremities warm and well perfused. Pulses equal. ABDOMEN: Soft, non-distended. Erythema on lower abdomen and prior laparoscopic incision sites but no induration, tenderness, or fluctuance. Mild discomfort suprapubically. No rebound or guarding. No masses. RECTAL: Deferred. MUSCULOSKELETAL: Chest examination reveals no tenderness. The back is symmetrical on inspection without obvious abnormality. There is no CVA tenderness to palpation. No joint edema. LOWER EXTREMITIES: Calves are equal size bilaterally and non-tender. No edema. No discoloration. NEURO: Normal sensorium. No sensory or motor deficits noted. SKIN: Skin is moist but otherwise warm. No rash or jaundice noted. Medical Decision & Procedures ER Provider Diagnostic Interpretation: Radiology results as stated below per my review and radiologist interpretation: CHEST ONE VIEW PORTABLE CLINICAL HISTORY: 61 years-old Male presenting with CHEST PAIN. TECHNIQUE: Portable upright AP view of the chest was obtained. COMPARISON: 04/29/2017. FINDINGS: Mildly prominent cardiac silhouette. Lungs and pleural spaces clear. Degenerative changes of the spine. Upper abdomen normal. IMPRESSION: 1. No acute cardiopulmonary disease. Electronically signed by: Dane Hyde M.D. 06/25/2017 3:54 PM Dictated Date/Time: 06/25/2017 3:54 PM ABD/PELVIS IV CONTRAST ONLY HISTORY: 61 years-old Male acute lower abd pain s/p prostatecomy COMPARISON: CT abdomen and pelvis 03/15/2017, bone scan 03/15/2017. TECHNIQUE: Multiple axial CT images of the abdomen and pelvis were obtained following the intravenous administration of 93 mL Optiray 320. A dose lowering technique was used consistent with the principals of ALARA. FINDINGS: Linear pleural-based opacities of the lung bases and a subsegmental distribution suggest atelectasis and/or scarring. There is no pneumoperitoneum identified. The imaged inferior cardiac chambers are mildly enlarged. Coronary arterial calcifications are noted. The liver, spleen, gallbladder, pancreas and adrenal glands are unremarkable. The kidneys demonstrate no renal calculi or hydronephrosis. There is a cyst with minimal layering calcification involving the superior pole left kidney, 1.7 cm. Ureters proximally appear normal. Urinary bladder is collapsed secondary to extradural mass effect from a large circumscribed left pelvic wall fluid collection, 9.5 x 6.0 x 6.4 cm. Right pelvic wall fluid collection is also present, 4.9 x 3.3 x 6.7 cm. Both of these are retroperitoneal structures. There is associated moderate degree of mesenteric stranding within the lower pelvis, likely reactive. There is evidence of prior prostatectomy. Fluid collections also causes marked narrowing of the mid sigmoid colon. Scattered noninflamed colonic diverticula are noted. There is no bowel obstruction. 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 No evidence of acute appendicitis. There is a gastric band in place. There is no bowel obstruction. There is mild nonspecific stranding along the anterior abdominal wall. Patient obesity noted. No suspicious sclerotic bony lesions are seen to suggest metastasis. No pathologic adenopathy. IMPRESSION: 1. Status post prostatectomy with bilateral lower pelvic sidewall fluid collections, largest of which measures up to 9.5 cm causing extrinsic mass effect upon the urinary bladder and sigmoid colon. Moderate associated mesenteric stranding is likely reactive. Differential considerations would include abscess, seroma or lymphocele formation. 2. No pneumoperitoneum or bowel obstruction. 3. No pathologic adenopathy or evidence of sclerotic bony metastasis. 4. Incidental findings include gastric band and right-sided spigelian hernia which contains a nondilated loop of ileum. The above report was generated using voice recognition software. It may contain grammatical, syntax or spelling errors. Electronically signed by: Cesar Clarke M.D. 06/25/2017 6:23 PM Dictated Date/Time: 06/25/2017 6:13 PM Laboratory Results 06/25/17 16:30 Red Blood Count 4.63, Mean Corpuscular Volume 89.4, Mean Corpuscular Hemoglobin 31.7, Mean Corpuscular Hemoglobin Concent 35.5, Mean Platelet Volume 9.4, Neutrophils (%) (Auto) 77.6, Lymphocytes (%) (Auto) 9.9, Monocytes (%) (Auto) 10.2, Eosinophils (%) (Auto) 1.5, Basophils (%) (Auto) 0.3, Neutrophils # (Auto ) 11.89, Lymphocytes # (Auto) 1.51, Monocytes # (Auto) 1.56, Eosinophils # (Auto ) 0.23, Basophils # (Auto) 0.04 06/25/17 16:30 Test 06/25/17 16:30 06/25/17 19:30 White Blood Count 15.31 K/uL (4.8-10.8) Red Blood Count 4.63 M/uL (4.7-6.1) Hemoglobin 14.7 g/dL (14.0-18.0) Hematocrit 41.4 % (42-52) Mean Corpuscular Volume 89.4 fL (80-100) Mean Corpuscular Hemoglobin 31.7 pg (25-34) Mean Corpuscular Hemoglobin Concent 35.5 g/dl (32-36) Platelet Count 230 K/uL (130-400) Mean Platelet Volume 9.4 fL (7.4-10.4) Neutrophils (%) (Auto) 77.6 % Lymphocytes (%) (Auto) 9.9 % Monocytes (%) (Auto) 10.2 % Eosinophils (%) (Auto) 1.5 % Basophils (%) (Auto) 0.3 % Neutrophils # (Auto) 11.89 K/uL (1.4-6.5) Lymphocytes # (Auto) 1.51 K/uL (1.2-3.4) Monocytes # (Auto) 1.56 K/uL (0.11-0.59) Eosinophils # (Auto) 0.23 K/uL (0-0.5) Basophils # (Auto) 0.04 K/uL (0-0.2) RDW Standard Deviation 45.8 fL (36.4-46.3) RDW Coefficient of Variation 14.0 % (11.5-14.5) Immature Granulocyte % (Auto) 0.5 % Immature Granulocyte # (Auto) 0.08 K/uL (0.00-0.02) Anion Gap 7.0 mmol/L (3-11) Est Creatinine Clear Calc Drug Dose 78.3 ml/min Estimated GFR () 67.3 Estimated GFR (Non- 58.1 BUN/Creatinine Ratio 13.1 (10-20) Calcium Level 9.3 mg/dl (8.5-10.1) Total Bilirubin 1.1 mg/dl (0.2-1) Direct Bilirubin 0.5 mg/dl (0-0.2) Aspartate Amino Transf (AST/SGOT) 65 U/L (15-37) Alanine Aminotransferase (ALT/SGPT) 64 U/L (12-78) Alkaline Phosphatase 104 U/L (45-117) Troponin I < 0.015 ng/ml (0-0.045) Total Protein 7.7 gm/dl (6.4-8.2) Albumin 3.1 gm/dl (3.4-5.0) Lipase 161 U/L (73-393) Lactic Acid Level 1.9 mmol/L (0.4-2.0) Laboratory results reviewed by me Medications Administered Medications (Trade) Dose Ordered Sig/Zoey Route Start Time Stop Time Status Last Admin Dose Admin Sodium Chloride 1,000 ml @ 999 mls/hr Q1H1M STAT IV 06/25/17 15:22 06/25/17 16:22 DC 06/25/17 15:22 999 MLS/HR Vancomycin HCl 2250 mg/Sodium Chloride 545 ml @ 200 mls/hr TODAY@1930 IV 06/25/17 19:30 06/25/17 23:59 DC 06/25/17 20:02 200 MLS/HR Acetaminophen (Tylenol Tab) 650 mg Q4H PRN PO 06/25/17 21:15 07/25/17 21:14 06/25/17 23:14 650 MG ECG Indication: SOB/dyspnea Rate (beats per minute): 120 Rhythm: atrial fibrillation Findings: no acute ischemic change, other (normal axis) Comparison ECG Date: no prior available ED Course 1520: The patient was evaluated in room B11B. A complete history and physical exam was performed. 152: Ordered NSS 1000 ml @ 999 mls/hr IV. 1840: I reevaluated the patient and he is resting comfortably. The patient verbally expressed understanding and agreement of the treatment plan. The patient will be evaluated for further treatment. 1910: I discussed the patient with Dr. Montana - [facility] urology - he agrees with evaluating the patient for further treatment. Medical Decision I reviewed the patient's past medical history, medications, and the nursing notes as described above. Differential diagnoses: cystitis, pyelonephritis, pneumonia, bronchitis, less likely diverticulitis, colitis. The patient is a 61-year-old gentleman with a past medical history of A. fib not on coumadin and status post prostatectomy for malignancy one month ago with Dr. Hudson presents to the emergency department with worsening malaise, intermittent fevers, abdominal fullness for the past week despite being on doxycycline per history of present illness. On arrival the patient appears fatigued but in no acute distress. He is afebrile, tachycardia to the 110s, otherwise stable. On exam the patient has some mild erythema to laparoscopic incision sites but without warmth, induration, fluctuance, or crepitus. Notable for leukocytosis 15, otherwise CT scan showing 9 and half centimeter fluid collection adjacent to the bladder that is concerning for abscess but could be also seroma. In this setting, blood cultures and lactate were drawn and the patient was ordered for broad-spectrum antibiotics. I discussed the case with Dr. Montana who is on-call for the urology group. He agrees with admission, cultures, broad-spectrum antibiotics. He will come to see the patient this evening. I discussed the case with the medicine team will admit the patient to the medicine service for further management. Medication Reconcilliation Current Medication List: was personally reviewed by me Blood Pressure Screening Patient's blood pressure: Normal blood pressure Consults Time Called: 1908 Consulting Phys[facility] Returned Call: 1910 I discussed the patient with Dr. Rubén GOEL urology - he agrees with evaluating the patient for further treatment. Impression Primary Impression: Intra-abdominal abscess Scribe Attestation The scribe's documentation has been prepared under my direction and personally reviewed by me in its entirety. I confirm that the note above accurately reflects all work, treatment, procedures, and medical decision making performed by me. Departure Information Dispostion Being Evaluated By Hospitalist Referrals [facility] ([facility]) Patient Instructions My [facility]
[2017-06-25] MEDS ORDERED: SODIUM CHLORIDE 0.9% 1000ML 1,000 ML IV STA ×2 (15:22→18:30)
[2017-06-25] MEDS ORDERED: DOXY100T PO (15:23)
[2017-06-25] MEDS ORDERED: DOCU100C31 PO (15:23)
[2017-06-25] MEDS ORDERED: TADA20TA PO (15:23)
[2017-06-25] MEDS ORDERED: ASPI81TA28 PO (15:23)
[2017-06-25] MEDS ORDERED: OPTIRAY 320 IV PRN ×2 (15:45→23:30)
--- NOTE | 2017-06-25 15:56 | DIAGNOSTIC IMAGING REPORT ---
CHEST ONE VIEW PORTABLE CLINICAL HISTORY: 61 years-old Male presenting with CHEST PAIN. TECHNIQUE: Portable upright AP view of the chest was obtained. COMPARISON: 04/29/2017. FINDINGS: Mildly prominent cardiac silhouette. Lungs and pleural spaces clear. Degenerative changes of the spine. Upper abdomen normal. IMPRESSION: 1. No acute cardiopulmonary disease. Electronically signed by: Dane Hyde M.D. 06/25/2017 3:54 PM Dictated Date/Time: 06/25/2017 3:54 PM
[2017-06-25 16:53] LABS: BASO % 0.3 %; BASO ABS # 0.04 K/uL (0-0.2); COMPLETE YES; EOS % 1.5 %; HEMATOCRIT 41.4 % (42-52); IG% 0.5 %; LYMPH % 9.9 %; LYMPH ABS # 1.51 K/uL (1.2-3.4); MEAN CELL VOLUME 89.4 fL (80-100); MEAN CORPUSCULAR HEMOGLOBIN 31.7 pg (25-34); MEAN CORPUSCULAR HGB CONC 35.5 g/dl (32-36); MEAN PLATELET VOLUME 9.4 fL (7.4-10.4); MONO % 10.2 %; NEUT % 77.6 %; PLATELET COUNT 230 K/uL (130-400); RED BLOOD COUNT 4.63 M/uL (4.7-6.1); WHITE BLOOD COUNT 15.31 K/uL (4.8-10.8)
[2017-06-25 17:05] LABS: BLOOD UREA NITROGEN 17 mg/dl (7-18); GLUCOSE 108 mg/dl (70-99)
[2017-06-25 17:06] LABS: ALT/SGPT 64 U/L (12-78); AST/SGOT 65 U/L (15-37); BUN/CREATININE RATIO 13.1 (10-20); CALCIUM 9.3 mg/dl (8.5-10.1); CARBON DIOXIDE 26 mmol/L (21-32); CHLORIDE 103 mmol/L (98-107); POTASSIUM 3.7 mmol/L (3.5-5.1); SODIUM 136 mmol/L (136-145)
[2017-06-25 17:11] LABS: ALKALINE PHOSPHATASE 104 U/L (45-117)
--- NOTE | 2017-06-25 18:25 | DIAGNOSTIC IMAGING REPORT ---
ABD/PELVIS IV CONTRAST ONLY HISTORY: 61 years-old Male acute lower abd pain s/p prostatecomy COMPARISON: CT abdomen and pelvis 03/15/2017, bone scan 03/15/2017. TECHNIQUE: Multiple axial CT images of the abdomen and pelvis were obtained following the intravenous administration of 93 mL Optiray 320. A dose lowering technique was used consistent with the principals of YAKOV. FINDINGS: Linear pleural-based opacities of the lung bases and a subsegmental distribution suggest atelectasis and/or scarring. There is no pneumoperitoneum identified. The imaged inferior cardiac chambers are mildly enlarged. Coronary arterial calcifications are noted. The liver, spleen, gallbladder, pancreas and adrenal glands are unremarkable. The kidneys demonstrate no renal calculi or hydronephrosis. There is a cyst with minimal layering calcification involving the superior pole left kidney, 1.7 cm. Ureters proximally appear normal. Urinary bladder is collapsed secondary to extradural mass effect from a large circumscribed left pelvic wall fluid collection, 9.5 x 6.0 x 6.4 cm. Right pelvic wall fluid collection is also present, 4.9 x 3.3 x 6.7 cm. Both of these are retroperitoneal structures. There is associated moderate degree of mesenteric stranding within the lower pelvis, likely reactive. There is evidence of prior prostatectomy. Fluid collections also causes marked narrowing of the mid sigmoid colon. Scattered noninflamed colonic diverticula are noted. There is no bowel obstruction. 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 No evidence of acute appendicitis. There is a gastric band in place. There is no bowel obstruction. There is mild nonspecific stranding along the anterior abdominal wall. Patient obesity noted. No suspicious sclerotic bony lesions are seen to suggest metastasis. No pathologic adenopathy. IMPRESSION: 1. Status post prostatectomy with bilateral lower pelvic sidewall fluid collections, largest of which measures up to 9.5 cm causing extrinsic mass effect upon the urinary bladder and sigmoid colon. Moderate associated mesenteric stranding is likely reactive. Differential considerations would include abscess, seroma or lymphocele formation. 2. No pneumoperitoneum or bowel obstruction. 3. No pathologic adenopathy or evidence of sclerotic bony metastasis. 4. Incidental findings include gastric band and right-sided spigelian hernia which contains a nondilated loop of ileum. The above report was generated using voice recognition software. It may contain grammatical, syntax or spelling errors. Electronically signed by: Cesar Clarke M.D. 06/25/2017 6:23 PM Dictated Date/Time: 06/25/2017 6:13 PM
[2017-06-25] MEDS ORDERED: VANCOMYCIN IV STA (18:30)
[2017-06-25] MEDS ORDERED: PIPERACILLIN/TAZOBACTAM 4.5 GM/100ML D5W IV STA (18:30)
[2017-06-25] MEDS ORDERED: SODIUM CHLORIDE 0.9% IV STA (18:30)
[2017-06-25] MEDS ORDERED: VANCOMYCIN INJ 2,250 MG in SODIUM CHLORIDE 0.9% 500ML 500 ML IV SCH (19:30)
[2017-06-25] MEDS ORDERED: ZOLPIDEM TARTRATE 5 MG TAB PO PRN (21:15)
[2017-06-25] MEDS ORDERED: NON-FORMULARY MEDICATION (Tadalafil (Cialis) 20 MG) PO SCH (21:15)
[2017-06-25] MEDS ORDERED: ONDANSETRON INJ 2 MG/ML 2 ML VIAL IV PRN (21:30)
[2017-06-25] MEDS ORDERED: PIPERACILLIN/TAZOBACTAM 4.5 GM/100ML D5W ONE (21:37)
[2017-06-25 22:15] VITALS: Ht 180.3 cm; Wt 125.0 kg
[2017-06-25] MEDS ORDERED: VANCOMYCIN CONSULT ACTIVE PRN (22:15)
[2017-06-25] MEDS ORDERED: PIPERACILL/TAZOBAC CONSULT ACTIVE PRN (22:15)
--- NOTE | 2017-06-25 22:36 | History and Physical ---
History & Physical Date & Time of Service: Jun 25, 2017 at 22:34 Chief Complaint: Intra-Abdominal Abscess, Prostate Cancer Primary Care Physician: Ayden Sanchez M.D. ([facility]) History of Present Illness Source: patient The patient is a 61-year-old male, status post prostatectomy 18 days ago, who presents to the emergency department with fevers, chills and sweats that began 11 days ago, worsening over the past few days. He was seen by Dr. Hudson his urologist 2 days ago for follow-up appointment, and reportedly his test results were good, but was prescribed doxycycline 100 mg by mouth twice a day for the illness. When he called Dr. Hudson's office for a verbal feedback today, he was advised to come to the emergency department for assessment. He has some lower pelvic area pressure, and reports this morning he noticed that he had some bilateral hip discomfort upon getting up walk from bed. He also develops a mild cough when he attempts to take a deep breath and is occasionally short of breath. Past Medical/Surgical History Medical Problems: (1) HTN (hypertension) Status: Chronic Surgical Problems: (1) History of prostatectomy Status: Resolved Family History Cancer Diabetes mellitus Heart disease Hypertension Kidney disease Social History Smoking Status: Light Tobacco Smoker Smokeless Tobacco Use: No Alcohol Use: none Drug Use: none Marital Status: Housing status: lives with family Occupational Status: employed Immunizations History of Influenza Vaccine: Unknown History of Tetanus Vaccine?: Unknown History of Pneumococcal: Unknown History of Hepatitis B Vaccine: Unknown Multi-Drug Resistant Organisms History of MDRO: No Allergies Coded Allergies: Sulfa Antibiotics (Verified Allergy, Unknown, Hives, 05/11/17) Home Medications Scheduled Amlodipine (Norvasc), 5 MG PO QPM Ascorbic Acid (Vitamin C), 500 MG PO QAM Aspirin (Aspirin Ec), 81 MG PO QAM Coenzyme Q10 (Ubidecarenone) (Coq-10), 100 MG PO QPM Docusate Sodium (Docusate Sodium), 100 MG PO BID Doxycycline Hyclate (Doxycycline Hyclate), 100 MG PO Q12 Losartan Potassium (Cozaar), 25 MG PO QPM Lutein (Lutein), 6 MG PO QAM Multivitamin (Multivitamin), 1 TAB PO QAM Simvastatin (Zocor), 120 MG PO QPM Tadalafil (Cialis), 20 MG PO UD Review of Systems The patient denies chest pain, palpitations, cough, lower extremity swelling, vision change, hearing change, sore throat, weight change, fatigue, nausea, vomiting, diarrhea, blood in urine or stool, dysuria, urinary frequency or urgency, lightheadedness, dizziness, headache, memory loss, rash, abnormal bruising or bleeding, imbalance, focal or generalized weakness, numbness or tingling in arms or legs, generalized arthralgias or myalgias, back or neck pain , night sweats, or allergy symptoms. The review of systems is otherwise negative other than for that already noted above, and at least 10 systems have been reviewed. Physical Exam Vital Signs Date Time Temp Pulse Resp B/P (MAP) Pulse Ox O2 Delivery O2 Flow Rate FiO2 06/25/17 21:54 36.7 110 18 160/110 96 06/25/17 21:18 110 18 160/110 96 Room Air 06/25/17 20:02 115 22 142/74 96 Room Air 06/25/17 14:25 95 Room Air 06/25/17 14:23 36.7 120 22 127/83 95 Room Air The patient is awake, well-developed and adequately nourished, alert and oriented 3, normocephalic and atraumatic, lying in bed and in no acute distress. HEENT--PERRL, EOMI, mucous membranes and oropharynx dry. Neck--supple, no JVD or bruits, thyroid normal, trachea midline, no adenopathy. Heart--irregularly irregular, tachycardic, few PVCs. No murmurs, rubs or gallops. Lungs--clear bilaterally with good air movement, no respiratory distress, no accessory muscle use. Abdomen--normal bowel sounds and soft, mild tenderness bilateral pelvis, nondistended. Extremities--no cyanosis, clubbing or edema. There are good distal pulses b/l. Dermatologic--normal skin turgor, normal color, warm and dry, no abnormal lymph nodes, no rash. Neurologic--cranial nerves II through XII grossly intact, motor and sensory examination normal. Rheumatologic--normal range of motion, nontender, muscles and joints. Psychiatric--normal affect. Diagnostics Laboratory Results Results Past 24 Hours Test 06/25/17 16:30 06/25/17 19:30 Range/Units White Blood Count 15.31 4.8-10.8 K/uL Red Blood Count 4.63 4.7-6.1 M/uL Hemoglobin 14.7 14.0-18.0 g/dL Hematocrit 41.4 42-52 % Mean Corpuscular Volume 89.4 80-100 fL Mean Corpuscular Hemoglobin 31.7 25-34 pg Mean Corpuscular Hemoglobin Concent 35.5 32-36 g/dl Platelet Count 230 130-400 K/uL Mean Platelet Volume 9.4 7.4-10.4 fL Neutrophils (%) (Auto) 77.6 % Lymphocytes (%) (Auto) 9.9 % Monocytes (%) (Auto) 10.2 % Eosinophils (%) (Auto) 1.5 % Basophils (%) (Auto) 0.3 % Neutrophils # (Auto) 11.89 1.4-6.5 K/uL Lymphocytes # (Auto) 1.51 1.2-3.4 K/uL Monocytes # (Auto) 1.56 0.11-0.59 K/uL Eosinophils # (Auto) 0.23 0-0.5 K/uL Basophils # (Auto) 0.04 0-0.2 K/uL RDW Standard Deviation 45.8 36.4-46.3 fL RDW Coefficient of Variation 14.0 11.5-14.5 % Immature Granulocyte % (Auto) 0.5 % Immature Granulocyte # (Auto) 0.08 0.00-0.02 K/uL Sodium Level 136 136-145 mmol/L Potassium Level 3.7 3.5-5.1 mmol/L Chloride Level 103 98-107 mmol/L Carbon Dioxide Level 26 21-32 mmol/L Anion Gap 7.0 3-11 mmol/L Blood Urea Nitrogen 17 7-18 mg/dl Creatinine 1.30 0.60-1.40 mg/dl Est Creatinine Clear Calc Drug Dose 78.3 ml/min Estimated GFR () 67.3 Estimated GFR (Non- 58.1 BUN/Creatinine Ratio 13.1 10-20 Random Glucose 108 70-99 mg/dl Calcium Level 9.3 8.5-10.1 mg/dl Total Bilirubin 1.1 0.2-1 mg/dl Direct Bilirubin 0.5 0-0.2 mg/dl Aspartate Amino Transf (AST/SGOT) 65 15-37 U/L Alanine Aminotransferase (ALT/SGPT) 64 12-78 U/L Alkaline Phosphatase 104 45-117 U/L Troponin I < 0.015 0-0.045 ng/ml Total Protein 7.7 6.4-8.2 gm/dl Albumin 3.1 3.4-5.0 gm/dl Lipase 161 73-393 U/L Lactic Acid Level 1.9 0.4-2.0 mmol/L Microbiology Results 06/25/17 Blood Culture, Received Pending 06/25/17 Blood Culture, Received Pending Diagnostic Radiology Patient Name: TEJINDER PRINCE Unit Number: [id number] Dictated: 06/25/171553 Transcribed: 06/25/171553 PBS Printed Date/Time: [~ rep prt dt]/[~ rep prt tm] [~ rep ct labl] - [~ rep ct ivnm] [facility] Radiology [place] [address] Dictated: 06/25/171553 Transcribed: 06/25/171553 PBS Printed Date/Time: [~ rep prt dt]/[~ rep prt tm] [~ rep ct labl] - [~ rep ct ivnm] [~ rep ct add3]] CHEST ONE VIEW PORTABLE CLINICAL HISTORY: 61 years-old Male presenting with CHEST PAIN. TECHNIQUE: Portable upright AP view of the chest was obtained. COMPARISON: 04/29/2017. FINDINGS: Mildly prominent cardiac silhouette. Lungs and pleural spaces clear. Degenerative changes of the spine. Upper abdomen normal. IMPRESSION: 1. No acute cardiopulmonary disease. Electronically signed by: Dane Hyde M.D. 06/25/2017 3:54 PM Dictated Date/Time: 06/25/2017 3:54 PM The status of this report is Signed. Draft = Not yet reviewed or approved by Radiologist. Signed = Reviewed and approved by Radiologist. <AttendingPhy></AttendingPhy> <FamilyPhy>Miguel Hudson M.D.</FamilyPhy > <PrimaryPhy>Ayden Sanchez M.D. ([facility])</PrimaryPhy> <UnitNumber>[id number]</ UnitNumber> <VisitNumber>[id number]</VisitNumber> <PatientName>TEJINDER PRINCE </PatientName> <DateOfBirth>1955</DateOfBirth> <Location>C.EDB</Location> <ServiceDate>06/25/17</ServiceDate> <MNE>ESINDI</MNE> <OrderingPhy>Tommy Serrano M.D.</OrderingPhy> <OrderingPhyMNE>f rep ord dr park</OrderingPhyMNE> <DictatingPhyMNE>f rep dict dr park</DictatingPhyMNE> <CCListMNE>f rep ct mne</ CCListMNE> <AdmittingPhyMNE>f pt admit dr park</AdmittingPhyMNE> <AttendingPhyMNE >f pt attend dr park</AttendingPhyMNE> <ConsultingPhyMNE>f pt consult dr park</ConsultingPhyMNE> <FamilyPhyMNE>f pt fam dr park</FamilyPhyMNE> <OtherPhyMNE>f pt other dr park</OtherPhyMNE> < PrimaryPhyMNE>f pt prim care dr park</PrimaryPhyMNE> <ReferringPhyMNE>f pt referring dr park</ReferringPhyMNE> Patient Name: TEJINDER PRINCE Unit Number: [id number] Dictated: 06/25/171812 Transcribed: 06/25/171812 JRB Printed Date/Time: [~ rep prt dt]/[~ rep prt tm] [~ rep ct labl] - [~ rep ct ivnm] [facility] Radiology Department [place], [place] [id number] Dictated: 06/25/171812 Transcribed: 06/25/171812 JRB Printed Date/Time: [~ rep prt dt]/[~ rep prt tm] [~ rep ct labl] - [~ rep ct ivnm] [~ rep ct add3]] ABD/PELVIS IV CONTRAST ONLY HISTORY: 61 years-old Male acute lower abd pain s/p prostatecomy COMPARISON: CT abdomen and pelvis 03/15/2017, bone scan 03/15/2017. TECHNIQUE: Multiple axial CT images of the abdomen and pelvis were obtained following the intravenous administration of 93 mL Optiray 320. A dose lowering technique was used consistent with the principals of YAKOV. FINDINGS: Linear pleural-based opacities of the lung bases and a subsegmental distribution suggest atelectasis and/or scarring. There is no pneumoperitoneum identified. The imaged inferior cardiac chambers are mildly enlarged. Coronary arterial calcifications are noted. The liver, spleen, gallbladder, pancreas and adrenal glands are unremarkable. The kidneys demonstrate no renal calculi or hydronephrosis. There is a cyst with minimal layering calcification involving the superior pole left kidney, 1.7 cm. Ureters proximally appear normal. Urinary bladder is collapsed secondary to extradural mass effect from a large circumscribed left pelvic wall fluid collection, 9.5 x 6.0 x 6.4 cm. Right pelvic wall fluid collection is also present, 4.9 x 3.3 x 6.7 cm. Both of these are retroperitoneal structures. There is associated moderate degree of mesenteric stranding within the lower pelvis, likely reactive. There is evidence of prior prostatectomy. Fluid collections also causes marked narrowing of the mid sigmoid colon. Scattered noninflamed colonic diverticula are noted. There is no bowel obstruction. 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 No evidence of acute appendicitis. There is a gastric band in place. There is no bowel obstruction. There is mild nonspecific stranding along the anterior abdominal wall. Patient obesity noted. No suspicious sclerotic bony lesions are seen to suggest metastasis. No pathologic adenopathy. IMPRESSION: 1. Status post prostatectomy with bilateral lower pelvic sidewall fluid collections, largest of which measures up to 9.5 cm causing extrinsic mass effect upon the urinary bladder and sigmoid colon. Moderate associated mesenteric stranding is likely reactive. Differential considerations would include abscess, seroma or lymphocele formation. 2. No pneumoperitoneum or bowel obstruction. 3. No pathologic adenopathy or evidence of sclerotic bony metastasis. 4. Incidental findings include gastric band and right-sided spigelian hernia which contains a nondilated loop of ileum. The above report was generated using voice recognition software. It may contain grammatical, syntax or spelling errors. Electronically signed by: Cesar Clarke M.D. 06/25/2017 6:23 PM Dictated Date/Time: 06/25/2017 6:13 PM The status of this report is Signed. Draft = Not yet reviewed or approved by Radiologist. Signed = Reviewed and approved by Radiologist. <AttendingPhy></AttendingPhy> <FamilyPhy>Miguel Hudson M.D.</FamilyPhy > <PrimaryPhy>Ayden Sanchez M.D. ([facility])</PrimaryPhy> <UnitNumber>[id number]</ UnitNumber> <VisitNumber>[id number]</VisitNumber> <PatientName>TEJINDER PRINCE </PatientName> <DateOfBirth>1955</DateOfBirth> <Location>C.EDB</Location> <ServiceDate>06/25/17</ServiceDate> <MNE>ESINDI</MNE> <OrderingPhy>Tommy Serrano M.D.</OrderingPhy> <OrderingPhyMNE>f rep ord dr park</OrderingPhyMNE> <DictatingPhyMNE>f rep dict dr park</DictatingPhyMNE> <CCListMNE>f rep ct vivian</ CCListMNE> <AdmittingPhyMNE>f pt admit dr park</AdmittingPhyMNE> <AttendingPhyMNE >f pt attend dr park</AttendingPhyMNE> <ConsultingPhyMNE>f pt consult dr park</ConsultingPhyMNE> <FamilyPhyMNE>f pt fam dr park</FamilyPhyMNE> <OtherPhyMNE>f pt other dr park</OtherPhyMNE> < PrimaryPhyMNE>f pt prim care dr park</PrimaryPhyMNE> <ReferringPhyMNE>f pt referring dr park</ReferringPhyMNE> EKG EKG shows atrial fibrillation with RVR at 120 bpm, PVCs, no acute ST-T changes. Impression Assessment and Plan Bilateral Intra-abdominal/pelvic abscess with largest 9.5 cm causing extrinsic mass effect upon urinary bladder and sigmoid colon/status post prostatectomy 18 days ago--patient will be admitted to the medical surgical floor. Vancomycin IV per pharmacokinetic monitoring. Zosyn 4.5 g IV every 6 hours. Famotidine 20 mg IV every 12 hours. Zofran 4 mg IV every 6 hours when necessary. Nothing by mouth except medications after midnight. Normal saline with KCl 20 mEq at 100 mils per hour. Consultation with Dr. Montana from urology who has seen the patient tonight while in the ED. Shortness of breath/pleuritic chest pain--order CTA of chest to assess for pulmonary embolism. Hypertension/atrial fibrillation--continue amlodipine 5 mg by mouth every afternoon, losartan 25 mg by mouth every afternoon. For now, due to possible procedure tomorrow, hold aspirin 81 mg by mouth every morning Hyperlipidemia--reportedly on simvastatin 120 mg by mouth every afternoon. Hold until dose verified. Level of Care Med/Surg Advanced Directives Existing Advance Directive: No Existing Living Will: No Existing Power of Glass Washer: No Resuscitation Status FULL RESUSCITATION VTE Prophylaxis VTE Risk Assessment Done? Y/N: Yes Risk Level: Moderate Given or contraindicated: SCD's (if CTA of chest was negative.)
--- NOTE | 2017-06-25 22:41 | Pharmacy Progress Note ---
Pharmacy Antibiotic Consult Date of Service: Jun 25, 2017. Pharmacy Dosing Scope Pharmacy is consulted to initiate vancomycin and Zosyn IV dosing therapy, order appropriate labs and adjust drug dose/frequency. Subjective The patient is a 61 year old male admitted on Jun 25, 2017 at 21:16. History of prostate cancer, S/P prostatectomy 05/11/17. Now with seroma vs abscess. Objective Height (Feet): 5 Height (Inches): 11.00 Weight (Kilograms): 125.000 Lab Results (24hrs): Test 06/25/17 16:30 06/25/17 19:30 White Blood Count 15.31 K/uL (4.8-10.8) Red Blood Count 4.63 M/uL (4.7-6.1) Hemoglobin 14.7 g/dL (14.0-18.0) Hematocrit 41.4 % (42-52) Mean Corpuscular Volume 89.4 fL (80-100) Mean Corpuscular Hemoglobin 31.7 pg (25-34) Mean Corpuscular Hemoglobin Concent 35.5 g/dl (32-36) Platelet Count 230 K/uL (130-400) Mean Platelet Volume 9.4 fL (7.4-10.4) Neutrophils (%) (Auto) 77.6 % Lymphocytes (%) (Auto) 9.9 % Monocytes (%) (Auto) 10.2 % Eosinophils (%) (Auto) 1.5 % Basophils (%) (Auto) 0.3 % Neutrophils # (Auto) 11.89 K/uL (1.4-6.5) Lymphocytes # (Auto) 1.51 K/uL (1.2-3.4) Monocytes # (Auto) 1.56 K/uL (0.11-0.59) Eosinophils # (Auto) 0.23 K/uL (0-0.5) Basophils # (Auto) 0.04 K/uL (0-0.2) RDW Standard Deviation 45.8 fL (36.4-46.3) RDW Coefficient of Variation 14.0 % (11.5-14.5) Immature Granulocyte % (Auto) 0.5 % Immature Granulocyte # (Auto) 0.08 K/uL (0.00-0.02) Sodium Level 136 mmol/L (136-145) Potassium Level 3.7 mmol/L (3.5-5.1) Chloride Level 103 mmol/L (98-107) Carbon Dioxide Level 26 mmol/L (21-32) Anion Gap 7.0 mmol/L (3-11) Blood Urea Nitrogen 17 mg/dl (7-18) Creatinine 1.30 mg/dl (0.60-1.40) Est Creatinine Clear Calc Drug Dose 78.3 ml/min Estimated GFR () 67.3 Estimated GFR (Non- 58.1 BUN/Creatinine Ratio 13.1 (10-20) Random Glucose 108 mg/dl (70-99) Calcium Level 9.3 mg/dl (8.5-10.1) Total Bilirubin 1.1 mg/dl (0.2-1) Direct Bilirubin 0.5 mg/dl (0-0.2) Aspartate Amino Transf (AST/SGOT) 65 U/L (15-37) Alanine Aminotransferase (ALT/SGPT) 64 U/L (12-78) Alkaline Phosphatase 104 U/L (45-117) Troponin I < 0.015 ng/ml (0-0.045) Total Protein 7.7 gm/dl (6.4-8.2) Albumin 3.1 gm/dl (3.4-5.0) Lipase 161 U/L (73-393) Lactic Acid Level 1.9 mmol/L (0.4-2.0) Micro Results: 06/25 blood x2 pending Recent Pertinent Medications Item Value Date Time Vancomycin HCl 530 ml @ 200 mls/hr 06/26/17 0500 1500 mg/Sodium Q12@0500,1700/IV Chloride Piperacillin Sod/ 120 ml @ 30 mls/hr 06/26/17 0400 Tazobactam Sod Q8@0400,1200,2000/IV 4.5 gm/Dextrose Piperacillin Sod/ 4.5 gm 06/25/177 Tazobactam Sod .STK-MED ONCE/.ROUTE (Zosyn Iv) Vancomycin HCl 545 ml @ 200 mls/hr 06/25/17 1930 2250 mg/Sodium TODAY@1930/IV 06/25/172001 Chloride Assessment & Plan Modified loading dose: vancomycin 2250 mg IV X 1 dose (18 mg/kg) then: vancomycin 1500 mg IV every 12 hours. Goal peak level estimate: between 25-40 mcg/mL. Goal trough level estimate: between 15-20 mcg/mL. Trough has been ordered for: 06/27/17 before 0500 dose. Zosyn 4.5 Gm IV over 30 min x1, then Zosyn 4.5 Gm (infused over 4 hr) every 8 hr , for CrCl greater than 20 ml/min. Pharmacy will continue to follow and will adjust dose/frequency as necessary. Thank you
[2017-06-25] MEDS: FAMOTIDINE IV INJ 20 MG in DEXTROSE 5% 100ML 100 ML IV SCH (23:11)
[2017-06-25] MEDS: NSS + 20MEQ KCL 1000ML 1,000 ML IV SCH (23:11)
[2017-06-25] MEDS: ACETAMINOPHEN 325 MG TAB PO PRN (23:14)
[2017-06-25 23:16] VITALS: BP 133/82; PULSE 62; TEMP 36.8; O2SAT 99
[2017-06-25] MEDS ORDERED: ARTIFICIAL TEARS OP OINT 3.5 GM TUBE OP ONE (23:59)
[2017-06-26] MEDS ORDERED: AMLODIPINE BESYLATE 5 MG TAB PO STA (00:17)
[2017-06-26] MEDS: DiphenhydrAMINE 2%/ZINC 0.1% CREAM 28GM TUBE EXT PRN ×3 (00:38→20:58)
--- NOTE | 2017-06-26 00:41 | CONSULTATION REPORT ---
DATE OF CONSULTATION: 06/25/2017 REASON FOR CONSULT: Fever and pelvic pressure and lymphoceles on CT scan. HISTORY OF HOSPITAL COURSE: The patient is a 61-year-old male status post radical retropubic prostatectomy 05/11/2017 for adenocarcinoma of the prostate. The patient had at the same time had bilateral pelvic lymph node dissection. The patient was discharged home, uncomplicated process. He was continent relatively quickly. Lymph nodes were negative. The patient had [place] 7 adenocarcinoma of the prostate with negative margins. Postoperatively, the patient did well until recently when he about a week or 10 days ago began to have some abdominal pressure and low-grade fever and was seen actually by Dr. Hudson several days ago, started on doxycycline, but told that if he was no better, to call, that he would need to have a CAT scan. He continued to have symptoms. Today, he called the office and was told to go to the Emergency Room. Although his symptoms were no worse, it was only whether he was going to get evaluated, so he came to the Emergency Room, had a CAT scan which showed these large lymphocele, the left side appears to be larger than the right, and of note, he does have on the right side a hernia at the port site, but no evidence of any bowel obstruction and no evidence of any swelling of the intestine at that site. He has been having bowel movements and is passing gases including this evening. He was hungry this evening and was eating normally. He, however, did have an elevated white blood cell count of 15.3. Urine has not been done to this point but it will be ordered. He did have urine checked in the office and again was started on doxycycline to make sure there was no evidence of infection. Of note, he has had some redness of the skin at the port sites, it is a little more than one would expect. PAST MEDICAL HISTORY: As previously stated is significant for a lap band, significant for radical prostatectomy, has a history of hypertension. SOCIAL HISTORY: Does smoke. Does not use alcohol. ALLERGIES: HE HAS AN ALLERGY TO SULFA. MEDICATIONS: Include Norvasc 5 mg p.o. q.p.m., aspirin 81 mg q.a.m., docusate 100 mg p.o. b.i.d., he has been on doxycycline recently as previously stated, was started on 25 mg p.o. q.p.m., simvastatin 120 mg p.o. q.p.m. and Cialis as needed. PHYSICAL EXAMINATION: GENERAL: The patient is slightly overweight male with no significant distress. HEENT: Unremarkable. LUNGS: Clear to auscultation. Of note, he did complain of some difficulty breathing several days ago, says it is better but feels like there is some pressure from his abdomen on his breathing occasionally. His sats appear to be good tonight. ABDOMEN: Enlarged but soft and nontender except over some of the port sites but the site at the hernias does not appear to be any more tender than any of the other sites. There is significant redness of the skin around these sites but it does not appear to be purulent and there does not appear to be an underlying spreading cellulitis. GENITALIA: He has got normal male phallus and testes. EXTREMITIES: Unremarkable. No calf tenderness. NEUROLOGIC: He is alert and oriented without obvious focal or sensory deficits. CAT scan does show bilateral lymphoceles with the left significantly larger than right and as previously stated slight port hernia but it does not appear to be obstructing, and clinically or radiologically, there is no significant bowel obstruction or swelling. ASSESSMENT: Fever with lymphocele, possibly infected. PLAN: I have discussed with radiology to not set up to easily do staffing merchant CT drainage over the weekend but might do so if pressed. We will have to discuss again in the morning with them as this was left up in the air but do not feel that the patient needs to be transferred at this time. If they say that they cannot do this, then would ultimately may have to transfer the patient unless he improves significantly on antibiotics. He does appear to be voiding normally without any difficulties. I do not feel the need to place a Zapata catheter at this time. We will order a urinalysis and he will continue to be evaluated. If he continues to have pressure and/or low-grade fever over the weekend and the radiologists agree, would possibly wait until Wednesday to drain the lymphocele. If he gets more febrile or has further more intense elevation in his white blood cell count or appears to be more toxic, would have to either transfer for drainage or press on the drainage here. Discussed the case with Dr. Hudson who agrees with this plan. JUAN ANTONIO
[2017-06-26 01:04] LABS: URINE APPEARANCE CLEAR (CLEAR); URINE COLOR DK YELLOW; URINE NITRITE NEG (NEG); URINE PH 5.5 (4.5-7.5); URINE SPECIFIC GRAVITY > 1.045 (1.000-1.030); UROBILINOGEN NEG (NEG); ZZUR CULT IF INDIC CLEAN CATCH NO
[2017-06-26 01:15] LABS: MANUAL MICROSCOPIC REQUIRED? NO; REVIEW REQ? NO; URINE BILIRUBIN NEG (NEG)
[2017-06-26] MEDS: VANCOMYCIN INJ 1,500 MG in SODIUM CHLORIDE 0.9% 500ML 500 ML IV SCH ×2 (04:14→17:17)
[2017-06-26] MEDS: PIPERACILL/TAZOBAC IV 4.5 GM in DEXTROSE 5% 100ML 100 ML IV SCH ×3 (04:14→20:49)
--- NOTE | 2017-06-26 06:05 | DIAGNOSTIC IMAGING REPORT ---
(CHEST FOR PE) ANGIO WITH CLINICAL HISTORY: 61 years-old Male presenting with recent surgery, now with shortness of breath. TECHNIQUE: Multidetector CT angiography of the chest was performed after administration of intravenous contrast. 3-D volumetric and maximum intensity projection (MIP) images were subsequently reconstructed for review. IV contrast: 93 mL of Optiray 320 A dose lowering technique was used consistent with the principles of ALARA (as low as reasonably achievable). COMPARISON: None. CT DOSE (mGy.cm): The estimated cumulative dose is 749.73 mGy.cm. FINDINGS: Hog Worker topogram: Unremarkable. Pulmonary vasculature: The study is adequate for assessment of the pulmonary vascular tree. No filling defect within the pulmonary arteries to suggest embolus. Main pulmonary artery not enlarged. No flattening of the interventricular septum. No intracardiac filling defect. Remaining chest: On soft tissue windows, normal thyroid and thoracic inlet. Few subcentimeter mediastinal lymph nodes as well as hilar lymph nodes, likely reactive. Atherosclerosis of aortic arch. Left atrial enlargement. Aortic valve and coronary artery calcification. No pericardial or pleural effusion. Evidence of a gastric band in place. On lung windows, bandlike opacities at the lung bases. Subpleural 3 to 4 mm solid nodule in the left lower lobe (series 3 image 26). Airways patent. On bone windows, degenerative changes of the spine. IMPRESSION: 1. No evidence of pulmonary embolus or acute intrathoracic pathology. 2. Bibasilar bandlike opacities likely atelectasis. 3. Solid 3 to 4 mm pulmonary nodule in the left lower lobe. Follow-up per Fleischner Society 2017 recommendations below. Please refer to below summary of Fleischner Society 2017 recommendations for follow-up of incidental CT nodules (H Brady et al. Guidelines for management of incidental pulmonary nodules detected on CT images: From the Fleischner Society 2017. Radiology 2017; 284: 228-243.) SOLID NODULES Single nodule; size <6 mm * Low risk patients: No routine follow-up * High risk patients: Optional CT at 12 months Single nodule; size 6-8 mm * Low risk patients: CT at 6-12 months, then consider CT at 18-24 months * High risk patients: CT at 6-12 months, then at 18-24 months Single nodule; size >8 mm * Either low or high risk patients: Considered CT at 3 months, PET/CT, or tissue sampling Multiple nodules; size <6 mm * Low risk patients: No routine follow up * High risk patients: Optional CT at 12 months Multiple nodules; size 6-8 mm * Low risk patients: CT at 3-6 months, then consider CT at 18-24 months * High risk patients: CT at 3-6 months, then at 18-24 months Multiple nodules; size >8 mm * Low risk patients: CT at 3-6 months, then consider at 18-24 months * High risk patients: CT at 3-6 months, then at 18-24 months Note: These guidelines apply to incidental nodules. These guidelines did not apply to patients younger than 35 years, immunocompromised patients, or patients with cancer. * Low risk patients: Minimal or absent history of smoking and/or other known risk factors * High risk patients: History of smoking, exposure to other carcinogens, emphysema, fibrosis, upper lobe location, family history of lung cancer, etc. * If a nodule up to 8 mm is partly solid or is ground glass further follow-up is required after 24 months to exclude possible slow growing adenocarcinoma SUBSOLID NODULES Single ground-glass nodule * Nodule size < 6 mm: No routine follow-up * Nodule size > or = 6 mm: CT at 6-12 months to confirm persistence, then CT every 2 years until 5 years Single part-solid nodule * Nodule size < 6 mm: No routine follow-up * Nodules size > or = 6 mm: CT at 3-6 months to confirm persistence. If unchanged and solid component remains < 6 mm, annual CT should be performed for 5 years Multiple nodules * Nodule size < 6 mm: CT at 3-6 months. If stable, consider CT at 2 and 4 years. * Nodules size > or = 6 mm: CT at 3-6 months. Subsequent management based on the most suspicious nodule(s) Electronically signed by: Dane Hyde M.D. 06/26/2017 6:04 AM Dictated Date/Time: 06/26/2017 5:59 AM
[2017-06-26] MEDS: NSS + 20MEQ KCL 1000ML 1,000 ML IV SCH ×2 (07:49→17:17)
[2017-06-26 08:03] VITALS: BP 112/78; PULSE 101; TEMP 37; O2SAT 96
[2017-06-26 08:48] LABS: BASO % 0.4 %; BASO ABS # 0.04 K/uL (0-0.2); COMPLETE YES; EOS % 2.7 %; HEMATOCRIT 39.1 % (42-52); IG% 0.5 %; LYMPH % 9.1 %; LYMPH ABS # 1.03 K/uL (1.2-3.4); MEAN CELL VOLUME 90.1 fL (80-100); MEAN CORPUSCULAR HEMOGLOBIN 30.4 pg (25-34); MEAN CORPUSCULAR HGB CONC 33.8 g/dl (32-36); MEAN PLATELET VOLUME 9.3 fL (7.4-10.4); MONO % 9.3 %; PLATELET COUNT 211 K/uL (130-400); RED BLOOD COUNT 4.34 M/uL (4.7-6.1); WHITE BLOOD COUNT 11.31 K/uL (4.8-10.8)
[2017-06-26] MEDS ORDERED: NON-FORMULARY MEDICATION (Lutein 6 MG) PO SCH (09:00)
[2017-06-26 09:23] LABS: BUN/CREATININE RATIO 12.2 (10-20); CALCIUM 8.5 mg/dl (8.5-10.1); CREATININE 1.1 mg/dl (0.60-1.40); MAGNESIUM 2.1 mg/dl (1.8-2.4); POTASSIUM 3.7 mmol/L (3.5-5.1)
[2017-06-26] MEDS ORDERED: ENOXAPARIN 40 MG/0.4 ML SYR SQ ONE (10:27)
--- NOTE | 2017-06-26 10:29 | Hospitalist Progress Note ---
Hospitalist Progress Note Date of Service Jun 26, 2017. Subjective Pt evaluation today including: conversation w/ patient Pain: no pain Patient with no complaints looking for breakfast Medications Medications (Trade) Dose Ordered Sig/Zoey Route Start Time Stop Time Status Last Admin Dose Admin Sodium Chloride 1,000 ml @ 999 mls/hr Q1H1M STAT IV 06/25/17 15:22 06/25/17 16:22 DC 06/25/17 15:22 999 MLS/HR Vancomycin HCl 2250 mg/Sodium Chloride 545 ml @ 200 mls/hr TODAY@1930 IV 06/25/17 19:30 06/25/17 23:59 DC 06/25/17 20:02 200 MLS/HR Acetaminophen (Tylenol Tab) 650 mg Q4H PRN PO 06/25/17 21:15 07/25/17 21:14 06/25/17 23:14 650 MG Vancomycin HCl 1500 mg/Sodium Chloride 530 ml @ 200 mls/hr Q12@0500,1700 IV 06/26/17 05:00 07/05/17 19:59 06/26/17 04:14 200 MLS/HR Piperacillin Sod/ Tazobactam Sod 4.5 gm/Dextrose 120 ml @ 30 mls/hr Q8@0400,1200,2000 IV 06/26/17 04:00 07/05/17 21:59 06/26/17 04:14 30 MLS/HR Potassium Chloride/Sodium Chloride 1,000 ml @ 100 mls/hr Q10H IV 06/25/17 21:18 07/25/17 21:17 06/26/17 07:49 100 MLS/HR Famotidine 20 mg/ Dextrose 102 ml @ 200 mls/hr Q12H IV 06/25/17 22:00 07/25/17 21:59 06/25/17 23:11 200 MLS/HR Piperacillin Sod/ Tazobactam Sod (Zosyn Iv) 4.5 gm STK-MED ONCE .ROUTE 06/25/17 21:37 06/25/17 21:38 DC 06/26/17 00:36 4.5 GM Amlodipine Besylate (Norvasc Tab) 5 mg NOW STAT PO 06/26/17 00:17 06/26/17 00:18 DC 06/26/17 00:36 5 MG Artificial Tears (Lacri-Lube Oph Oint) 1 appln 2359 ONCE OP 06/25/17 23:59 06/26/17 00:17 DC 06/26/17 00:36 1 APPLN Diphenhydramine HCl (Benadryl Extra Strength Cream) 1 appln Q6H PRN EXT 06/26/17 00:00 07/26/17 00:00 06/26/17 00:38 1 APPLN Objective Vital Signs Date Time Temp Pulse Resp B/P (MAP) Pulse Ox O2 Delivery O2 Flow Rate FiO2 06/26/17 08:03 37.0 101 18 112/78 (89) 96 Room Air 06/26/17 00:00 Room Air 06/25/17 23:16 36.8 62 16 133/82 (99) 99 Room Air 06/25/17 22:15 Room Air 06/25/17 21:54 36.7 110 18 160/110 96 06/25/17 21:18 110 18 160/110 96 Room Air 06/25/17 20:02 115 22 142/74 96 Room Air 06/25/17 14:25 95 Room Air 06/25/17 14:23 36.7 120 22 127/83 95 Room Air Physical Exam General Appearance: no apparent distress Eyes: normal inspection ENT: hearing grossly normal Neck: trachea midline Respiratory/Chest: chest non-tender Cardiovascular: regular rate, rhythm Abdomen: normal bowel sounds Extremities: normal range of motion Neurologic/Psychiatric: alert Laboratory Results Last 24 Hours Test 06/25/17 16:30 06/25/17 19:30 06/26/17 00:48 06/26/17 08:09 White Blood Count 15.31 K/uL 11.31 K/uL Red Blood Count 4.63 M/uL 4.34 M/uL Hemoglobin 14.7 g/dL 13.2 g/dL Hematocrit 41.4 % 39.1 % Mean Corpuscular Volume 89.4 fL 90.1 fL Mean Corpuscular Hemoglobin 31.7 pg 30.4 pg Mean Corpuscular Hemoglobin Concent 35.5 g/dl 33.8 g/dl Platelet Count 230 K/uL 211 K/uL Mean Platelet Volume 9.4 fL 9.3 fL Neutrophils (%) (Auto) 77.6 % 78.0 % Lymphocytes (%) (Auto) 9.9 % 9.1 % Monocytes (%) (Auto) 10.2 % 9.3 % Eosinophils (%) (Auto) 1.5 % 2.7 % Basophils (%) (Auto) 0.3 % 0.4 % Neutrophils # (Auto) 11.89 K/uL 8.83 K/uL Lymphocytes # (Auto) 1.51 K/uL 1.03 K/uL Monocytes # (Auto) 1.56 K/uL 1.05 K/uL Eosinophils # (Auto) 0.23 K/uL 0.30 K/uL Basophils # (Auto) 0.04 K/uL 0.04 K/uL RDW Standard Deviation 45.8 fL 46.7 fL RDW Coefficient of Variation 14.0 % 14.1 % Immature Granulocyte % (Auto) 0.5 % 0.5 % Immature Granulocyte # (Auto) 0.08 K/uL 0.06 K/uL Sodium Level 136 mmol/L 138 mmol/L Potassium Level 3.7 mmol/L 3.7 mmol/L Chloride Level 103 mmol/L 105 mmol/L Carbon Dioxide Level 26 mmol/L 25 mmol/L Anion Gap 7.0 mmol/L 8.0 mmol/L Blood Urea Nitrogen 17 mg/dl 13 mg/dl Creatinine 1.30 mg/dl 1.10 mg/dl Est Creatinine Clear Calc Drug Dose 78.3 ml/min 92.5 ml/min Estimated GFR () 67.3 82.4 Estimated GFR (Non- 58.1 71.1 BUN/Creatinine Ratio 13.1 12.2 Random Glucose 108 mg/dl 102 mg/dl Calcium Level 9.3 mg/dl 8.5 mg/dl Total Bilirubin 1.1 mg/dl Direct Bilirubin 0.5 mg/dl Aspartate Amino Transf (AST/SGOT) 65 U/L Alanine Aminotransferase (ALT/SGPT) 64 U/L Alkaline Phosphatase 104 U/L Troponin I < 0.015 ng/ml Total Protein 7.7 gm/dl Albumin 3.1 gm/dl Lipase 161 U/L Lactic Acid Level 1.9 mmol/L Urine Color DK YELLOW Urine Appearance CLEAR Urine pH 5.5 Urine Specific [place] > 1.045 Urine Protein 2+ Urine Glucose (UA) NEG Urine Ketones TRACE Urine Occult Blood 1+ Urine Nitrite NEG Urine Bilirubin NEG Urine Urobilinogen NEG Urine Leukocyte Esterase NEG Urine WBC (Auto) 1-5 /hpf Urine RBC (Auto) 5-10 /hpf Urine Hyaline Casts (Auto) 1-5 /lpf Urine Epithelial Cells (Auto) 5-10 /lpf Urine Bacteria (Auto) NEG Magnesium Level 2.1 mg/dl Assessment and Plan 1. Bilateral Intra-abdominal/pelvic abscess with largest 9.5 cm causing extrinsic mass effect upon urinary bladder and sigmoid colon/status post prostatectomy 18 days ago--patient will be admitted to the medical surgical floor. Vancomycin IV per pharmacokinetic monitoring. Zosyn 4.5 g IV every 6 hours. Famotidine 20 mg IV every 12 hours. Zofran 4 mg IV every 6 hours when necessary. Patient is responding well to tx will need drainage no indication that he needs it today will advance diet. 2. Shortness of breath/pleuritic chest pain none today CTA no pe 3. Hypertension/atrial fibrillation--continue amlodipine 5 mg by mouth every afternoon, losartan 25 mg by mouth every afternoon. 4. Hyperlipidemia--reportedly on simvastatin 5. Advanced Care Planning discussed patient wants to be Full code and has living will. Discharge planning: home
[2017-06-26] MEDS: ASCORBIC ACID 500 MG TAB PO SCH (10:34)
[2017-06-26] MEDS: MULTIVITAMIN TAB PO SCH (10:35)
[2017-06-26] MEDS: DOCUSATE SODIUM 100 MG CAP PO SCH ×2 (10:36→20:49)
[2017-06-26] MEDS: FAMOTIDINE IV INJ 20 MG in DEXTROSE 5% 100ML 100 ML IV SCH ×2 (10:43→21:51)
[2017-06-26 11:26] LABS: INR 1.1 (0.9-1.1)
--- NOTE | 2017-06-26 11:31 | Progress Note ---
Subjective Date of Service: Jun 26, 2017. Subjective Pt evaluation today including: conversation w/ patient, physical exam, conversation w/ senior science consultant pt feels better and not tachycardic Complains of pressure over left lymphocele and discomfort Hungry Passing flatus but no bm Problem List Medical Problems: (1) Intra-abdominal abscess Status: Acute Objective Vital Signs Date Time Temp Pulse Resp B/P (MAP) Pulse Ox O2 Delivery O2 Flow Rate FiO2 06/26/17 08:03 37.0 101 18 112/78 (89) 96 Room Air 06/26/17 00:00 Room Air 06/25/17 23:16 36.8 62 16 133/82 (99) 99 Room Air 06/25/17 22:15 Room Air 06/25/17 21:54 36.7 110 18 160/110 96 06/25/17 21:18 110 18 160/110 96 Room Air 06/25/17 20:02 115 22 142/74 96 Room Air 06/25/17 14:25 95 Room Air 06/25/17 14:23 36.7 120 22 127/83 95 Room Air Laboratory Results Last 24 Hours Test 06/25/17 16:30 06/25/17 19:30 06/26/17 00:48 06/26/17 08:09 White Blood Count 15.31 K/uL 11.31 K/uL Red Blood Count 4.63 M/uL 4.34 M/uL Hemoglobin 14.7 g/dL 13.2 g/dL Hematocrit 41.4 % 39.1 % Mean Corpuscular Volume 89.4 fL 90.1 fL Mean Corpuscular Hemoglobin 31.7 pg 30.4 pg Mean Corpuscular Hemoglobin Concent 35.5 g/dl 33.8 g/dl Platelet Count 230 K/uL 211 K/uL Mean Platelet Volume 9.4 fL 9.3 fL Neutrophils (%) (Auto) 77.6 % 78.0 % Lymphocytes (%) (Auto) 9.9 % 9.1 % Monocytes (%) (Auto) 10.2 % 9.3 % Eosinophils (%) (Auto) 1.5 % 2.7 % Basophils (%) (Auto) 0.3 % 0.4 % Neutrophils # (Auto) 11.89 K/uL 8.83 K/uL Lymphocytes # (Auto) 1.51 K/uL 1.03 K/uL Monocytes # (Auto) 1.56 K/uL 1.05 K/uL Eosinophils # (Auto) 0.23 K/uL 0.30 K/uL Basophils # (Auto) 0.04 K/uL 0.04 K/uL RDW Standard Deviation 45.8 fL 46.7 fL RDW Coefficient of Variation 14.0 % 14.1 % Immature Granulocyte % (Auto) 0.5 % 0.5 % Immature Granulocyte # (Auto) 0.08 K/uL 0.06 K/uL Sodium Level 136 mmol/L 138 mmol/L Potassium Level 3.7 mmol/L 3.7 mmol/L Chloride Level 103 mmol/L 105 mmol/L Carbon Dioxide Level 26 mmol/L 25 mmol/L Anion Gap 7.0 mmol/L 8.0 mmol/L Blood Urea Nitrogen 17 mg/dl 13 mg/dl Creatinine 1.30 mg/dl 1.10 mg/dl Est Creatinine Clear Calc Drug Dose 78.3 ml/min 92.5 ml/min Estimated GFR () 67.3 82.4 Estimated GFR (Non- 58.1 71.1 BUN/Creatinine Ratio 13.1 12.2 Random Glucose 108 mg/dl 102 mg/dl Calcium Level 9.3 mg/dl 8.5 mg/dl Total Bilirubin 1.1 mg/dl Direct Bilirubin 0.5 mg/dl Aspartate Amino Transf (AST/SGOT) 65 U/L Alanine Aminotransferase (ALT/SGPT) 64 U/L Alkaline Phosphatase 104 U/L Troponin I < 0.015 ng/ml Total Protein 7.7 gm/dl Albumin 3.1 gm/dl Lipase 161 U/L Lactic Acid Level 1.9 mmol/L Urine Color DK YELLOW Urine Appearance CLEAR Urine pH 5.5 Urine Specific [place] > 1.045 Urine Protein 2+ Urine Glucose (UA) NEG Urine Ketones TRACE Urine Occult Blood 1+ Urine Nitrite NEG Urine Bilirubin NEG Urine Urobilinogen NEG Urine Leukocyte Esterase NEG Urine WBC (Auto) 1-5 /hpf Urine RBC (Auto) 5-10 /hpf Urine Hyaline Casts (Auto) 1-5 /lpf Urine Epithelial Cells (Auto) 5-10 /lpf Urine Bacteria (Auto) NEG Magnesium Level 2.1 mg/dl Test 06/26/17 10:56 Assessment and Plan Discussed w Dr. Syed who is willing to bring in staff for drainage if urgent but is planning Wednesday am drainage Pt feels better with lower wbc. Because of pressure and fever last week will cont iv antibiotics and plan drain wednesday . If lymph sterile will need to decide whether to leave drain . If pt gets febrile in interim would have radiology drain in am Continued [facility] stay due to: multiple IV medications needed Discharge planning: home
[2017-06-26 15:39] VITALS: BP 143/79; PULSE 116; TEMP 37.1; O2SAT 96
[2017-06-26 17:15] VITALS: PULSE 86
[2017-06-26 20:45] VITALS: BP 125/75; PULSE 90
[2017-06-26] MEDS: ARTIFICIAL TEARS OP OINT 3.5 GM TUBE OP SCH (20:48)
[2017-06-26] MEDS: AMLODIPINE BESYLATE 5 MG TAB PO SCH (20:50)
[2017-06-26] MEDS ORDERED: NON-FORMULARY MEDICATION (Coenzyme Q10 (Ubidecarenone) (Coq-10) 100 MG) PO SCH (21:00)
[2017-06-26] MEDS: LOSARTAN POTASSIUM 25 MG TAB PO SCH (21:54)
[2017-06-26 23:02] VITALS: BP 126/73; PULSE 113; TEMP 37.4; O2SAT 92
[2017-06-27] MEDS: PIPERACILL/TAZOBAC IV 4.5 GM in DEXTROSE 5% 100ML 100 ML IV SCH ×3 (03:27→20:37)
[2017-06-27] MEDS: NSS + 20MEQ KCL 1000ML 1,000 ML IV SCH ×3 (03:27→22:18)
[2017-06-27] MEDS: ACETAMINOPHEN 325 MG TAB PO PRN (03:32)
[2017-06-27] MEDS ORDERED: VANCOMYCIN TROUGH SCH (04:30)
[2017-06-27] MEDS: VANCOMYCIN INJ 1,500 MG in SODIUM CHLORIDE 0.9% 500ML 500 ML IV SCH ×3 (04:46→23:47)
[2017-06-27 04:54] LABS: BASO % 0.6 %; BASO ABS # 0.08 K/uL (0-0.2); COMPLETE YES; EOS % 2.3 %; HEMATOCRIT 37.3 % (42-52); IG% 1.1 %; LYMPH % 11.4 %; LYMPH ABS # 1.58 K/uL (1.2-3.4); MEAN CELL VOLUME 89.7 fL (80-100); MEAN CORPUSCULAR HEMOGLOBIN 31.3 pg (25-34); MEAN CORPUSCULAR HGB CONC 34.9 g/dl (32-36); MEAN PLATELET VOLUME 8.9 fL (7.4-10.4); MONO % 9.5 %; NEUT % 75.1 %; PLATELET COUNT 211 K/uL (130-400); RED BLOOD COUNT 4.16 M/uL (4.7-6.1); WHITE BLOOD COUNT 13.92 K/uL (4.8-10.8)
[2017-06-27 05:21] LABS: BUN/CREATININE RATIO 10.2 (10-20); CALCIUM 8.5 mg/dl (8.5-10.1); CREATININE 1.2 mg/dl (0.60-1.40); MAGNESIUM 2.2 mg/dl (1.8-2.4); POTASSIUM 3.9 mmol/L (3.5-5.1)
--- NOTE | 2017-06-27 07:27 | DIAGNOSTIC IMAGING REPORT ---
BILATERAL LOWER EXTREMITY VENOUS DOPPLER HISTORY: Acute postoperative shortness of breath. COMPARISON STUDY: None. FINDINGS: RIGHT LOWER EXTREMITY: There is normal compressibility, and augmentation within the right lower extremity deep venous system. Slow flow is incidentally noted throughout the vessels. LEFT LOWER EXTREMITY: There is normal compressibility, and augmentation within the left lower extremity deep venous system. Slow flow is incidentally noted throughout the vessels. There is mild intraluminal increased echogenicity of the left femoral vein suggesting nonocclusive thrombus. IMPRESSION: 1. Mild intraluminal increased echogenicity of the left femoral vein is suspicious for nonocclusive thrombus. 2. No sonographic evidence of deep venous thrombosis within the right lower extremity. 3. Slow venous flow is incidentally noted throughout the deep vessels of the lower extremity bilaterally. Electronically signed by: Cesar Clarke M.D. 06/27/2017 7:25 AM Dictated Date/Time: 06/27/2017 7:21 AM
[2017-06-27 07:39] VITALS: BP 112/70; PULSE 92; TEMP 36.7; O2SAT 96
[2017-06-27] MEDS: MULTIVITAMIN TAB PO SCH (08:59)
[2017-06-27] MEDS: DOCUSATE SODIUM 100 MG CAP PO SCH ×2 (08:59→20:38)
[2017-06-27] MEDS ORDERED: ENOXAPARIN 40 MG/0.4 ML SYR SQ SCH (09:00)
[2017-06-27] MEDS: ASCORBIC ACID 500 MG TAB PO SCH (09:00)
[2017-06-27] MEDS: ASPIRIN 81 MG ECTAB PO SCH (09:00)
[2017-06-27] MEDS: FAMOTIDINE IV INJ 20 MG in DEXTROSE 5% 100ML 100 ML IV SCH ×2 (10:04→22:17)
--- NOTE | 2017-06-27 10:27 | Pharmacy Progress Note ---
Pharmacy Antibiotic Prog Note Date of Service Jun 27, 2017. Subjective The patient is currently receiving vancomycin 1500 mg IV every 12 hours. The patient is currently on day # 3 of vancomycin and Zosyn IV therapy. Objective Height (Feet): 5 Height (Inches): 11.00 Weight (Kilograms): 125.000 Lab Results (24hrs): Test 06/26/17 10:56 06/27/17 04:46 Prothrombin Time 12.0 SECONDS (9.0-12.0) Prothromb Time International Ratio 1.1 (0.9-1.1) White Blood Count 13.92 K/uL (4.8-10.8) Red Blood Count 4.16 M/uL (4.7-6.1) Hemoglobin 13.0 g/dL (14.0-18.0) Hematocrit 37.3 % (42-52) Mean Corpuscular Volume 89.7 fL (80-100) Mean Corpuscular Hemoglobin 31.3 pg (25-34) Mean Corpuscular Hemoglobin Concent 34.9 g/dl (32-36) Platelet Count 211 K/uL (130-400) Mean Platelet Volume 8.9 fL (7.4-10.4) Neutrophils (%) (Auto) 75.1 % Lymphocytes (%) (Auto) 11.4 % Monocytes (%) (Auto) 9.5 % Eosinophils (%) (Auto) 2.3 % Basophils (%) (Auto) 0.6 % Neutrophils # (Auto) 10.46 K/uL (1.4-6.5) Lymphocytes # (Auto) 1.58 K/uL (1.2-3.4) Monocytes # (Auto) 1.32 K/uL (0.11-0.59) Eosinophils # (Auto) 0.32 K/uL (0-0.5) Basophils # (Auto) 0.08 K/uL (0-0.2) RDW Standard Deviation 46.8 fL (36.4-46.3) RDW Coefficient of Variation 14.3 % (11.5-14.5) Immature Granulocyte % (Auto) 1.1 % Immature Granulocyte # (Auto) 0.16 K/uL (0.00-0.02) Sodium Level 139 mmol/L (136-145) Potassium Level 3.9 mmol/L (3.5-5.1) Chloride Level 107 mmol/L (98-107) Carbon Dioxide Level 23 mmol/L (21-32) Anion Gap 9.0 mmol/L (3-11) Blood Urea Nitrogen 12 mg/dl (7-18) Creatinine 1.20 mg/dl (0.60-1.40) Est Creatinine Clear Calc Drug Dose 84.8 ml/min Estimated GFR () 74.1 Estimated GFR (Non- 64.0 BUN/Creatinine Ratio 10.2 (10-20) Random Glucose 107 mg/dl (70-99) Calcium Level 8.5 mg/dl (8.5-10.1) Magnesium Level 2.2 mg/dl (1.8-2.4) Vancomycin Level Trough 10.4 mcg/ml (SEE COMMENT) Assessment & Plan Vancomycin trough level: 10.4mcg/ml This drug level is: Subtherapeutic Change to vancomycin 1500 mg IV every 10 hours. Will make conservative dosage adjustment to since may see accumulation due to BMI 38.5 kg/m2. Goal trough level estimate: between 15 - 20 mcg/mL. Peak and trough or random level has been ordered for: 06/28 prior to 2000 dose. Pharmacy will continue to follow and will adjust dose/frequency as necessary. Thank you
[2017-06-27] MEDS ORDERED: HEPARIN IV LOW DOSE NO BOLUS SCH (11:45)
[2017-06-27] MEDS ORDERED: HEPARIN 25,000 UNIT/500ML D5W 500 ML IV PRN (12:00)
[2017-06-27] MEDS ORDERED: HEPARIN IV BOLUS 8,000 UNIT in SYRINGE 0 ML IV ONE (12:30)
--- NOTE | 2017-06-27 12:37 | DIAGNOSTIC IMAGING REPORT ---
CHEST ONE VIEW PORTABLE HISTORY: 61 years-old Male acute shortness of breath COMPARISON: Chest radiograph 06/25/2017, CTA of the chest 06/25/2017 TECHNIQUE: Portable upright AP view of the chest FINDINGS: Cardiac silhouette is within normal limits. There is atherosclerosis of the aorta. Linear subsegmental left basilar opacities again seen suggesting atelectasis or scarring. There is no pneumothorax, pleural effusion or focal airspace consolidation. Bones of the chest appear grossly intact. IMPRESSION: No acute cardiopulmonary process. The above report was generated using voice recognition software. It may contain grammatical, syntax or spelling errors. Electronically signed by: Cesar Clarke M.D. 06/27/2017 12:36 PM Dictated Date/Time: 06/27/2017 12:34 PM
[2017-06-27 12:47] LABS: BASO % 0.8 %; BASO ABS # 0.11 K/uL (0-0.2); EOS % 2.2 %; IG% 1.3 %; LYMPH % 10.7 %; LYMPH ABS # 1.42 K/uL (1.2-3.4); MEAN CELL VOLUME 88.3 fL (80-100); MEAN CORPUSCULAR HEMOGLOBIN 31.6 pg (25-34); PLATELET COUNT 232 K/uL (130-400); RED BLOOD COUNT 4.53 M/uL (4.7-6.1); WHITE BLOOD COUNT 13.26 K/uL (4.8-10.8)
[2017-06-27 12:52] LABS: COMPLETE YES; MEAN CORPUSCULAR HGB CONC 35.8 g/dl (32-36)
[2017-06-27 12:57] LABS: INR 1.1 (0.9-1.1); PARTIAL THROMBOPLASTIN RATIO 1.4
[2017-06-27] MEDS: HEPARIN 25,000 UNIT/500ML D5W 500 ML IV PRN ×3 (13:27→23:01)
[2017-06-27] MEDS ORDERED: SENNA 8.6 MG TAB PO ONE (13:59)
[2017-06-27] MEDS ORDERED: POLYETHYLENE (MIRALAX) 17 GM PACK PO ONE (14:15)
--- NOTE | 2017-06-27 14:47 | Progress Note ---
Subjective Date of Service: Jun 27, 2017. Subjective Pt evaluation today including: conversation w/ patient, physical exam, chart review, conversation w/ business objects consultant Pain: less pelvic pressure pt complains of difficulty talking not really sob doppler study suggests possible l femoral vein clot Problem List Medical Problems: (1) Intra-abdominal abscess Status: Acute Objective Vital Signs Date Time Temp Pulse Resp B/P (MAP) Pulse Ox O2 Delivery O2 Flow Rate FiO2 06/27/17 07:40 Room Air 06/27/17 07:39 36.7 92 18 112/70 (84) 96 Room Air 06/26/17 23:15 Room Air 06/26/17 23:02 37.4 113 18 126/73 (90) 92 Room Air 06/26/17 20:45 90 125/75 (92) 06/26/17 17:15 86 06/26/17 16:15 Room Air 06/26/17 15:39 37.1 116 18 143/79 (100) 96 Room Air Laboratory Results Last 24 Hours Test 06/27/17 04:46 06/27/17 12:31 White Blood Count 13.92 K/uL 13.26 K/uL Red Blood Count 4.16 M/uL 4.53 M/uL Hemoglobin 13.0 g/dL 14.3 g/dL Hematocrit 37.3 % 40.0 % Mean Corpuscular Volume 89.7 fL 88.3 fL Mean Corpuscular Hemoglobin 31.3 pg 31.6 pg Mean Corpuscular Hemoglobin Concent 34.9 g/dl 35.8 g/dl Platelet Count 211 K/uL 232 K/uL Mean Platelet Volume 8.9 fL 9.0 fL Neutrophils (%) (Auto) 75.1 % 76.0 % Lymphocytes (%) (Auto) 11.4 % 10.7 % Monocytes (%) (Auto) 9.5 % 9.0 % Eosinophils (%) (Auto) 2.3 % 2.2 % Basophils (%) (Auto) 0.6 % 0.8 % Neutrophils # (Auto) 10.46 K/uL 10.07 K/uL Lymphocytes # (Auto) 1.58 K/uL 1.42 K/uL Monocytes # (Auto) 1.32 K/uL 1.20 K/uL Eosinophils # (Auto) 0.32 K/uL 0.29 K/uL Basophils # (Auto) 0.08 K/uL 0.11 K/uL RDW Standard Deviation 46.8 fL 46.5 fL RDW Coefficient of Variation 14.3 % 14.3 % Immature Granulocyte % (Auto) 1.1 % 1.3 % Immature Granulocyte # (Auto) 0.16 K/uL 0.17 K/uL Sodium Level 139 mmol/L Potassium Level 3.9 mmol/L Chloride Level 107 mmol/L Carbon Dioxide Level 23 mmol/L Anion Gap 9.0 mmol/L Blood Urea Nitrogen 12 mg/dl Creatinine 1.20 mg/dl Est Creatinine Clear Calc Drug Dose 84.8 ml/min Estimated GFR () 74.1 Estimated GFR (Non- 64.0 BUN/Creatinine Ratio 10.2 Random Glucose 107 mg/dl Calcium Level 8.5 mg/dl Magnesium Level 2.2 mg/dl Vancomycin Level Trough 10.4 mcg/ml Prothrombin Time 12.0 SECONDS Prothromb Time International Ratio 1.1 Activated Partial Thromboplast Time 36.9 SECONDS Partial Thromboplastin Ratio 1.4 Assessment and Plan Hospitalist started heparin and will stop at 8 am with stat ptt then planning Wednesday am drainage of possibly infected l lymphocele with drain Pt wants to be discharged wiyh drain and on lovenox alexandr to go on already started family vacation with family Continued [facility] stay due to: multiple IV medications needed Discharge planning: home
[2017-06-27] MEDS: DiphenhydrAMINE 2%/ZINC 0.1% CREAM 28GM TUBE EXT PRN ×2 (15:37→22:17)
[2017-06-27 15:43] VITALS: BP 147/88; PULSE 94; TEMP 37; O2SAT 94
[2017-06-27 20:15] LABS: PARTIAL THROMBOPLASTIN RATIO 2.6
[2017-06-27 20:35] VITALS: BP 138/86; PULSE 100
[2017-06-27] MEDS: ARTIFICIAL TEARS OP OINT 3.5 GM TUBE OP SCH (20:38)
[2017-06-27] MEDS: AMLODIPINE BESYLATE 5 MG TAB PO SCH (20:38)
[2017-06-27] MEDS: LOSARTAN POTASSIUM 25 MG TAB PO SCH (20:38)
[2017-06-27 20:40] VITALS: BP 138/86; PULSE 100
[2017-06-28] VITALS (11 sets, daily range): BP systolic 121–168; BP diastolic 71–93; PULSE 91–136; TEMP 36.3–39.1; O2SAT 91–95
--- NOTE | 2017-06-28 01:45 | Hospitalist Progress Note ---
Hospitalist Progress Note Date of Service Jun 27, 2017. Subjective Pt evaluation today including: conversation w/ patient Patient did not complain of shortness of breath however he was noted to be short of breath on the phone. Blood pressure Dopplers are positive for DVT on the left side Medications Medications (Trade) Dose Ordered Sig/Zoey Route Start Time Stop Time Status Last Admin Dose Admin Aspirin (Ecotrin Tab) 81 mg QAM PO 06/27/17 09:00 07/27/17 08:59 06/27/17 09:00 81 MG Enoxaparin Sodium (Lovenox Inj) 40 mg QAM SQ 06/27/17 09:00 06/27/17 11:35 DC 06/27/17 09:00 40 MG Vancomycin HCl 1500 mg/Sodium Chloride 530 ml @ 200 mls/hr Q10H IV 06/27/17 14:00 07/05/17 13:59 06/27/17 23:47 200 MLS/HR Heparin Sodium/ Dextrose 500 ml @ 34 mls/hr [id number] PRN IV 06/27/17 12:30 07/27/17 12:29 06/27/17 23:01 34 MLS/HR Heparin Sodium (Porcine) 8000 unit/Syringe 8 ml @ 10 mls/min NOW ONCE IV 06/27/17 12:30 06/27/17 12:31 DC 06/27/17 13:26 10 MLS/MIN Senna (Senokot Tab) 17.2 mg NOW ONCE PO 06/27/17 13:59 06/27/17 14:00 DC 06/27/17 14:19 17.2 MG Polyethylene (Miralax Powder Packet) 17 gm NOW ONCE PO 06/27/17 14:15 06/27/17 14:16 DC 06/27/17 14:19 17 GM Objective Vital Signs Date Time Temp Pulse Resp B/P (MAP) Pulse Ox O2 Delivery O2 Flow Rate FiO2 06/26/17 23:15 Room Air 06/26/17 23:02 37.4 113 18 126/73 (90) 92 Room Air 06/26/17 20:45 90 125/75 (92) 06/26/17 17:15 86 06/26/17 16:15 Room Air 06/26/17 15:39 37.1 116 18 143/79 (100) 96 Room Air 06/26/17 08:03 37.0 101 18 112/78 (89) 96 Room Air 06/26/17 07:40 Room Air Physical Exam General Appearance: no apparent distress Eyes: normal inspection ENT: hearing grossly normal Neck: supple Respiratory/Chest: chest non-tender, lungs clear, normal breath sounds, no respiratory distress Cardiovascular: regular rate, rhythm Abdomen: normal bowel sounds Extremities: normal inspection Neurologic/Psychiatric: alert Laboratory Results Last 24 Hours Test 06/26/17 08:09 06/26/17 10:56 White Blood Count 11.31 K/uL Red Blood Count 4.34 M/uL Hemoglobin 13.2 g/dL Hematocrit 39.1 % Mean Corpuscular Volume 90.1 fL Mean Corpuscular Hemoglobin 30.4 pg Mean Corpuscular Hemoglobin Concent 33.8 g/dl Platelet Count 211 K/uL Mean Platelet Volume 9.3 fL Neutrophils (%) (Auto) 78.0 % Lymphocytes (%) (Auto) 9.1 % Monocytes (%) (Auto) 9.3 % Eosinophils (%) (Auto) 2.7 % Basophils (%) (Auto) 0.4 % Neutrophils # (Auto) 8.83 K/uL Lymphocytes # (Auto) 1.03 K/uL Monocytes # (Auto) 1.05 K/uL Eosinophils # (Auto) 0.30 K/uL Basophils # (Auto) 0.04 K/uL RDW Standard Deviation 46.7 fL RDW Coefficient of Variation 14.1 % Immature Granulocyte % (Auto) 0.5 % Immature Granulocyte # (Auto) 0.06 K/uL Sodium Level 138 mmol/L Potassium Level 3.7 mmol/L Chloride Level 105 mmol/L Carbon Dioxide Level 25 mmol/L Anion Gap 8.0 mmol/L Blood Urea Nitrogen 13 mg/dl Creatinine 1.10 mg/dl Est Creatinine Clear Calc Drug Dose 92.5 ml/min Estimated GFR () 82.4 Estimated GFR (Non- 71.1 BUN/Creatinine Ratio 12.2 Random Glucose 102 mg/dl Calcium Level 8.5 mg/dl Magnesium Level 2.1 mg/dl Prothrombin Time 12.0 SECONDS Prothromb Time International Ratio 1.1 Assessment and Plan 1. Bilateral Intra-abdominal/pelvic abscess with largest 9.5 cm causing extrinsic mass effect upon urinary bladder and sigmoid colon/status post prostatectomy 18 days ago--patient will be admitted to the medical surgical floor. Vancomycin IV per pharmacokinetic monitoring. Zosyn 4.5 g IV every 6 hours. Famotidine 20 mg IV every 12 hours. Zofran 4 mg IV every 6 hours when necessary. Drainage of cystoceles will be performed on 06/28/2017 heparin will be discontinued at 4 AM and a PTT checked. 8 AM. 2. DVT started on heparin drip VQ scan will be performed to document the possibility of pulmonary emboli. CT of the chest done 2 days ago was negative. Because of the fact that management would not change patient will need anticoagulation the VQ scan can be performed on 06/28/2017. 3. Hypertension/atrial fibrillation--continue amlodipine 5 mg by mouth every afternoon, losartan 25 mg by mouth every afternoon. 4. Hyperlipidemia--reportedly on simvastatin 5. Advanced Care Planning discussed patient wants to be Full code and has living will.
[2017-06-28] MEDS: ACETAMINOPHEN 325 MG TAB PO PRN (02:05)
[2017-06-28] MEDS: PIPERACILL/TAZOBAC IV 4.5 GM in DEXTROSE 5% 100ML 100 ML IV SCH ×3 (03:40→20:20)
[2017-06-28] MEDS ORDERED: [UNRECOGNIZED DRUG - REMARK] ONE (04:00)
[2017-06-28 05:57] LABS: BASO % 0.9 %; BASO ABS # 0.11 K/uL (0-0.2); COMPLETE YES; EOS % 2.4 %; HEMATOCRIT 34.2 % (42-52); LYMPH % 11.9 %; LYMPH ABS # 1.43 K/uL (1.2-3.4); MEAN CELL VOLUME 88.1 fL (80-100); MEAN CORPUSCULAR HEMOGLOBIN 30.9 pg (25-34); MEAN CORPUSCULAR HGB CONC 35.1 g/dl (32-36); MEAN PLATELET VOLUME 8.8 fL (7.4-10.4); MONO % 10.7 %; NEUT % 72.1 %; PLATELET COUNT 232 K/uL (130-400); RED BLOOD COUNT 3.88 M/uL (4.7-6.1); WHITE BLOOD COUNT 12.01 K/uL (4.8-10.8)
[2017-06-28 06:06] LABS: PARTIAL THROMBOPLASTIN RATIO 1.6
[2017-06-28 06:40] LABS: BUN/CREATININE RATIO 8.6 (10-20); CALCIUM 8.1 mg/dl (8.5-10.1); CREATININE 0.96 mg/dl (0.60-1.40); POTASSIUM 3.6 mmol/L (3.5-5.1)
[2017-06-28] MEDS: NSS + 20MEQ KCL 1000ML 1,000 ML IV SCH ×2 (08:39→18:58)
--- NOTE | 2017-06-28 08:57 | Progress Note ---
Subjective Date of Service: Jun 28, 2017. Subjective Pt evaluation today including: conversation w/ patient, chart review, lab review Voiding: no voiding problems 61 yo male with bilateral lymphoceles s/p RALRP. The pt denies pain this morning. Denies n/v. Denies dysuria or hematuria. He is pending lymphocele drainage with radiology today. White count remains elevated, but stable at 12.01. Problem List Medical Problems: (1) Intra-abdominal abscess Status: Acute Review of Systems Constitutional: No fever, No chills Respiratory: No shortness of breath Cardiac: No chest pain Abdomen: No pain, No nausea Male : No dysuria, No hematuria Heme: No abnormal bleeding/bruising Skin: No rash Objective Vital Signs Date Time Temp Pulse Resp B/P (MAP) Pulse Ox O2 Delivery O2 Flow Rate FiO2 06/28/17 07:50 95 Room Air 06/28/17 07:48 36.3 98 17 128/85 (99) 95 Room Air 06/27/17 23:30 Room Air 06/27/17 20:35 100 138/86 (103) 06/27/17 15:43 37.0 94 18 147/88 (107) 94 Room Air 06/27/17 15:30 Room Air Physical Exam General Appearance: no apparent distress, + obese Eyes: normal inspection ENT: hearing grossly normal Neck: no JVD Respiratory/Chest: no respiratory distress, no accessory muscle use Cardiovascular: no JVD Abdomen: + pertinent finding (abdominal incisions c/d/i-healing well) Extremities: normal inspection Neurologic/Psychiatric: alert, normal mood/affect, oriented x 3 Skin: normal color Laboratory Results Last 24 Hours Test 06/27/17 12:31 06/27/17 19:28 06/28/17 05:22 White Blood Count 13.26 K/uL 12.01 K/uL Red Blood Count 4.53 M/uL 3.88 M/uL Hemoglobin 14.3 g/dL 12.0 g/dL Hematocrit 40.0 % 34.2 % Mean Corpuscular Volume 88.3 fL 88.1 fL Mean Corpuscular Hemoglobin 31.6 pg 30.9 pg Mean Corpuscular Hemoglobin Concent 35.8 g/dl 35.1 g/dl Platelet Count 232 K/uL 232 K/uL Mean Platelet Volume 9.0 fL 8.8 fL Neutrophils (%) (Auto) 76.0 % 72.1 % Lymphocytes (%) (Auto) 10.7 % 11.9 % Monocytes (%) (Auto) 9.0 % 10.7 % Eosinophils (%) (Auto) 2.2 % 2.4 % Basophils (%) (Auto) 0.8 % 0.9 % Neutrophils # (Auto) 10.07 K/uL 8.65 K/uL Lymphocytes # (Auto) 1.42 K/uL 1.43 K/uL Monocytes # (Auto) 1.20 K/uL 1.29 K/uL Eosinophils # (Auto) 0.29 K/uL 0.29 K/uL Basophils # (Auto) 0.11 K/uL 0.11 K/uL RDW Standard Deviation 46.5 fL 46.8 fL RDW Coefficient of Variation 14.3 % 14.4 % Immature Granulocyte % (Auto) 1.3 % 2.0 % Immature Granulocyte # (Auto) 0.17 K/uL 0.24 K/uL Prothrombin Time 12.0 SECONDS Prothromb Time International Ratio 1.1 Activated Partial Thromboplast Time 36.9 SECONDS 68.1 SECONDS 41.5 SECONDS Partial Thromboplastin Ratio 1.4 2.6 1.6 Sodium Level 140 mmol/L Potassium Level 3.6 mmol/L Chloride Level 109 mmol/L Carbon Dioxide Level 21 mmol/L Anion Gap 10.0 mmol/L Blood Urea Nitrogen 8 mg/dl Creatinine 0.96 mg/dl Est Creatinine Clear Calc Drug Dose 106.0 ml/min Estimated GFR () 97.1 Estimated GFR (Non- 83.8 BUN/Creatinine Ratio 8.6 Random Glucose 113 mg/dl Calcium Level 8.1 mg/dl Magnesium Level 2.0 mg/dl Assessment and Plan 1. Bilateral pelvic lymphoceles s/p RALRP AFVSS. Continue IV abx. Pending drainage of lymphoceles with radiology this today. Will continue to follow along with primary service. 2. Left lung nodule Pt also noted to have an incidental finding of lung nodule on CT. Will refer to outpatient lung nodule program to follow. 3. DVT. Management per primary service. Pt requesting to be transitioned to Lovenox prior to d/c home. The pt was seen and assessed with Dr. Hudson this morning. Continued [facility] stay due to: multiple IV medications needed Discharge planning: home
[2017-06-28] MEDS: ASCORBIC ACID 500 MG TAB PO SCH (09:00)
[2017-06-28] MEDS: ASPIRIN 81 MG ECTAB PO SCH (09:00)
[2017-06-28] MEDS: MULTIVITAMIN TAB PO SCH (09:00)
[2017-06-28] MEDS: SENNA 8.6 MG TAB PO SCH (09:00)
[2017-06-28] MEDS: POLYETHYLENE (MIRALAX) 17 GM PACK PO SCH (09:00)
[2017-06-28] MEDS: DOCUSATE SODIUM 100 MG CAP PO SCH ×2 (09:00→20:21)
[2017-06-28] MEDS: FAMOTIDINE IV INJ 20 MG in DEXTROSE 5% 100ML 100 ML IV SCH ×2 (10:32→22:04)
[2017-06-28] MEDS: VANCOMYCIN INJ 1,500 MG in SODIUM CHLORIDE 0.9% 500ML 500 ML IV SCH ×2 (10:34→20:20)
--- NOTE | 2017-06-28 14:04 | DIAGNOSTIC IMAGING REPORT ---
LUNG IMAGING VQ HISTORY: PE with short of breath and new dvt TECHNIQUE: Immediately following the inhalation of 32 mCi of technetium 99 M DTPA and the intravenous injection of 4.8 mCi of technetium 99 M MAA, anterior, posterior, oblique, lateral views of the chest performed for the ventilation and perfusion scan. COMPARISON STUDY: Chest 06/27/2017. FINDINGS: Slight prominence of the cardiac silhouette. Otherwise, perfusion and ventilation are within normal limits. No segmental or mismatched defects identified. IMPRESSION: Above findings are consistent with a very low probability scan. Electronically signed by: Kalyan Jones M.D. 06/28/2017 2:03 PM Dictated Date/Time: 06/28/2017 2:01 PM
--- NOTE | 2017-06-28 15:56 | DIAGNOSTIC IMAGING REPORT ---
CT-GUIDED ABSCESS DRAINAGE CLINICAL HISTORY: drain bilateral pelvic lymphoceles with drain placement COMPARISON STUDY: Abdomen and pelvis CT 06/25/2017. PROCEDURE: Written informed consent was obtained. The patient was positioned supine on the CT table and preliminary imaging of the pelvis was performed. Bilateral pelvic sidewall fluid collections were noted. The dominant 10 cm fluid collection on the left was accessible. The smaller 4 cm fluid collection on the right was not accessible due to the adjacent bladder and iliac vessels. A grid was placed over the lower anterior pelvis and a safe needle entry site was marked. 1% lidocaine was used for local anesthesia. A small skin neck was made. Using an AccuStick device, and 8 [place]ian drainage catheter was placed into the left pelvic sidewall fluid collection over a 0.83 guidewire. A total of 70 cc of liquid pus was removed. This was sent to the laboratory for further evaluation. Post procedure imaging demonstrated decrease in size of the left pelvic sidewall fluid collection without complete evacuation. The catheter remained within the anterior aspect of the fluid collection. These findings are concerning for a septated fluid collection. The catheter was connected to a vacuum bag. The patient was transported to the floor in stable condition. IMPRESSION: CT-guided abscess drainage which placement of an 8 [place]ian catheter into the left pelvic sidewall fluid collection. A total of 70 cc of liquid pus was removed and sent for laboratory analysis. The fluid collection was not evacuated to completion which is concerning for a septated fluid collection. Electronically signed by: Kalyan Jones M.D. 06/29/2017 7:52 AM Dictated Date/Time: 06/28/2017 3:51 PM
[2017-06-28] MEDS ORDERED: MEPERIDINE HCL 25 MG/ML CARP IV SCH (17:00)
[2017-06-28] MEDS: SODIUM CHLORIDE 0.9% 10ML FLUSH IV SCH (17:31)
[2017-06-28] MEDS: ACETAMINOPHEN IV 650 MG in EMPTY BAG 0 ML IV PRN (19:16)
--- NOTE | 2017-06-28 19:23 | Progress Note ---
Subjective Date of Service: Jun 28, 2017. Problem List Medical Problems: (1) Intra-abdominal abscess Status: Acute Objective Vital Signs Date Time Temp Pulse Resp B/P (MAP) Pulse Ox O2 Delivery O2 Flow Rate FiO2 06/28/17 07:50 95 Room Air 06/28/17 07:48 36.3 98 17 128/85 (99) 95 Room Air 06/27/17 23:30 Room Air 06/27/17 20:35 100 138/86 (103) 06/27/17 15:43 37.0 94 18 147/88 (107) 94 Room Air 06/27/17 15:30 Room Air Laboratory Results Last 24 Hours Test 06/27/17 12:31 06/27/17 19:28 06/28/17 05:22 White Blood Count 13.26 K/uL 12.01 K/uL Red Blood Count 4.53 M/uL 3.88 M/uL Hemoglobin 14.3 g/dL 12.0 g/dL Hematocrit 40.0 % 34.2 % Mean Corpuscular Volume 88.3 fL 88.1 fL Mean Corpuscular Hemoglobin 31.6 pg 30.9 pg Mean Corpuscular Hemoglobin Concent 35.8 g/dl 35.1 g/dl Platelet Count 232 K/uL 232 K/uL Mean Platelet Volume 9.0 fL 8.8 fL Neutrophils (%) (Auto) 76.0 % 72.1 % Lymphocytes (%) (Auto) 10.7 % 11.9 % Monocytes (%) (Auto) 9.0 % 10.7 % Eosinophils (%) (Auto) 2.2 % 2.4 % Basophils (%) (Auto) 0.8 % 0.9 % Neutrophils # (Auto) 10.07 K/uL 8.65 K/uL Lymphocytes # (Auto) 1.42 K/uL 1.43 K/uL Monocytes # (Auto) 1.20 K/uL 1.29 K/uL Eosinophils # (Auto) 0.29 K/uL 0.29 K/uL Basophils # (Auto) 0.11 K/uL 0.11 K/uL RDW Standard Deviation 46.5 fL 46.8 fL RDW Coefficient of Variation 14.3 % 14.4 % Immature Granulocyte % (Auto) 1.3 % 2.0 % Immature Granulocyte # (Auto) 0.17 K/uL 0.24 K/uL Prothrombin Time 12.0 SECONDS Prothromb Time International Ratio 1.1 Activated Partial Thromboplast Time 36.9 SECONDS 68.1 SECONDS 41.5 SECONDS Partial Thromboplastin Ratio 1.4 2.6 1.6 Sodium Level 140 mmol/L Potassium Level 3.6 mmol/L Chloride Level 109 mmol/L Carbon Dioxide Level 21 mmol/L Anion Gap 10.0 mmol/L Blood Urea Nitrogen 8 mg/dl Creatinine 0.96 mg/dl Est Creatinine Clear Calc Drug Dose 106.0 ml/min Estimated GFR () 97.1 Estimated GFR (Non- 83.8 BUN/Creatinine Ratio 8.6 Random Glucose 113 mg/dl Calcium Level 8.1 mg/dl Magnesium Level 2.0 mg/dl Assessment and Plan Bilateral Intra-abdominal/pelvic abscess with largest 9.5 cm causing extrinsic mass effect upon urinary bladder and sigmoid colon/status post prostatectomy 18 days ago--the pt underwent percutaneous drainage of fluid today Vancomycin IV per pharmacokinetic monitoring.Zosyn 4.5 g IV every 6 hours. Famotidine 20 mg IV every 12 hours.Zofran 4 mg IV every 6 hours when necessary. Drainage of cystoceles performed on 06/28/2017 heparin will be continued after procedure DVT started on heparin drip VQ scan negative pulmonary emboli. CT of the chest done 2 days ago was negative Hypertension/atrial fibrillation--continue amlodipine 5 mg by mouth every afternoon, losartan 25 mg by mouth every afternoon. Hyperlipidemia--reportedly on simvastatin Continued [facility] stay due to: multiple IV medications needed Discharge planning: home
[2017-06-28] MEDS: DiphenhydrAMINE 2%/ZINC 0.1% CREAM 28GM TUBE EXT PRN (20:20)
[2017-06-28] MEDS: LOSARTAN POTASSIUM 25 MG TAB PO SCH (20:21)
[2017-06-28] MEDS: ARTIFICIAL TEARS OP OINT 3.5 GM TUBE OP SCH (20:21)
[2017-06-28] MEDS: AMLODIPINE BESYLATE 5 MG TAB PO SCH (20:22)
[2017-06-28] MEDS ORDERED: VANCOMYCIN TROUGH SCH (21:30)
--- NOTE | 2017-06-28 22:46 | Pharmacy Progress Note ---
Pharmacy Abx Dose Short Note Date of Service Jun 28, 2017. Assessment & Plan Assessment 61 year old male receiving vancomycin/Zosyn for treatment of intra-abdominal abscess. Day # 4/10 of antimicrobial therapy. Plan Vancomycin * Trough level of 17.1 mcg/mL is * Change to vancomycin 1500 mg IV every 12 hours (planned reduction of 16% secondary to patient's BMI > 35 kg/m2) * Goal trough level for intra-abdominal abscess : 15 to 20 mcg/mL * Trough ordered for: 06/30/17 prior to 0800 dose Pharmacy will continue to follow and will adjust dose/frequency as necessary. Thank you.
[2017-06-29] VITALS (7 sets, daily range): BP systolic 122–145; BP diastolic 65–87; PULSE 111–132; TEMP 36.7–37.9; O2SAT 92–95
[2017-06-29] MEDS: ACETAMINOPHEN IV 650 MG in EMPTY BAG 0 ML IV PRN (02:33)
[2017-06-29] MEDS: SODIUM CHLORIDE 0.9% 10ML FLUSH IV SCH ×2 (04:19→15:41)
[2017-06-29] MEDS: PIPERACILL/TAZOBAC IV 4.5 GM in DEXTROSE 5% 100ML 100 ML IV SCH ×3 (04:19→19:52)
[2017-06-29] MEDS: NSS + 20MEQ KCL 1000ML 1,000 ML IV SCH ×2 (05:34→15:42)
[2017-06-29 06:48] LABS: HEMATOCRIT 35.4 % (42-52); MEAN CELL VOLUME 90.1 fL (80-100); MEAN CORPUSCULAR HEMOGLOBIN 30.3 pg (25-34); MEAN CORPUSCULAR HGB CONC 33.6 g/dl (32-36); PLATELET COUNT 300 K/uL (130-400); RED BLOOD COUNT 3.93 M/uL (4.7-6.1); WHITE BLOOD COUNT 16.37 K/uL (4.8-10.8)
[2017-06-29 07:04] LABS: PARTIAL THROMBOPLASTIN RATIO 1.4
[2017-06-29] MEDS ORDERED: DIGOXIN IV 125 MCG in SYRINGE 9.5 ML IV STA (08:22)
[2017-06-29] MEDS: VANCOMYCIN INJ 1,500 MG in SODIUM CHLORIDE 0.9% 500ML 500 ML IV SCH ×2 (08:49→19:52)
[2017-06-29] MEDS: DOCUSATE SODIUM 100 MG CAP PO SCH ×2 (08:58→20:31)
[2017-06-29] MEDS: ASPIRIN 81 MG ECTAB PO SCH (08:58)
[2017-06-29] MEDS: ASCORBIC ACID 500 MG TAB PO SCH (08:59)
[2017-06-29] MEDS: SENNA 8.6 MG TAB PO SCH (08:59)
[2017-06-29] MEDS: MULTIVITAMIN TAB PO SCH (09:00)
[2017-06-29] MEDS: POLYETHYLENE (MIRALAX) 17 GM PACK PO SCH (09:00)
[2017-06-29] MEDS ORDERED: METOPROLOL TARTRATE 25 MG TAB PO SCH (09:00)
[2017-06-29] MEDS: FAMOTIDINE IV INJ 20 MG in DEXTROSE 5% 100ML 100 ML IV SCH (09:49)
--- NOTE | 2017-06-29 10:57 | Progress Note ---
Subjective Date of Service: Jun 29, 2017. Subjective Pt evaluation today including: conversation w/ patient, physical exam, chart review, lab review Voiding: no voiding problems Status post percutaneous drainage of left-sided pelvic lymphocele yesterday He tolerated this procedure very well Did however have low-grade fevers overnight and tachycardia He said scant output from the drain Visit decrease in the pelvic pressure 06/29/17 06:17 Test 06/28/17 19:41 06/29/17 06:17 Vancomycin Level Trough 17.1 mcg/ml (SEE COMMENT) Red Blood Count 3.93 M/uL (4.7-6.1) Mean Corpuscular Volume 90.1 fL (80-100) Mean Corpuscular Hemoglobin 30.3 pg (25-34) Mean Corpuscular Hemoglobin Concent 33.6 g/dl (32-36) RDW Standard Deviation 48.0 fL (36.4-46.3) RDW Coefficient of Variation 14.5 % (11.5-14.5) Mean Platelet Volume 9.0 fL (7.4-10.4) Nucleated RBC Absolute Count (auto) 0.03 K/uL (0-0) Nucleated Red Blood Cells % 0.2 % Activated Partial Thromboplast Time 37.1 SECONDS (21.0-31.0) Partial Thromboplastin Ratio 1.4 Vital Signs Past 12 Hours Date Time Temp Pulse Resp B/P (MAP) Pulse Ox O2 Delivery O2 Flow Rate FiO2 06/29/17 09:47 128 122/76 (91) 06/29/17 08:52 124 06/29/17 08:47 132 132/79 (96) 06/29/17 07:30 36.7 119 18 126/65 (85) 95 Room Air 06/29/17 04:29 37.5 117 20 138/87 (104) 94 Room Air 06/28/17 23:45 37.2 136 22 138/82 (100) 94 Room Air 06/28/17 23:45 Room Air Problem List Medical Problems: (1) Intra-abdominal abscess Status: Acute Review of Systems Constitutional: + fever, + chills Objective Vital Signs Date Time Temp Pulse Resp B/P (MAP) Pulse Ox O2 Delivery O2 Flow Rate FiO2 06/29/17 09:47 128 122/76 (91) 06/29/17 08:52 124 06/29/17 08:47 132 132/79 (96) 06/29/17 07:30 36.7 119 18 126/65 (85) 95 Room Air 06/29/17 04:29 37.5 117 20 138/87 (104) 94 Room Air 06/28/17 23:45 37.2 136 22 138/82 (100) 94 Room Air 06/28/17 23:45 Room Air 06/28/17 22:04 37.5 130 22 129/76 (93) 92 Room Air 06/28/17 21:15 37.3 126 22 155/77 (103) 92 Room Air 06/28/17 18:00 39.1 117 26 143/93 (110) 92 Room Air 06/28/17 17:00 37.4 116 20 159/84 (109) 92 Room Air 06/28/17 16:28 37.0 123 18 144/84 (104) 91 Room Air 06/28/17 16:12 36.8 123 30 168/71 (103) 92 Room Air 06/28/17 16:10 Room Air 06/28/17 15:36 113 24 132/71 (91) 93 Room Air 06/28/17 14:48 36.3 91 17 121/81 (94) 95 Room Air 98 Physical Exam General Appearance: WD/WN, no apparent distress Eyes: normal inspection ENT: hearing grossly normal Neck: no adenopathy Respiratory/Chest: no respiratory distress, no accessory muscle use Cardiovascular: + tachycardia Abdomen: non tender, soft (drain with purulent fluid in the tubing but minimal/ scant output) Neurologic/Psychiatric: alert, normal mood/affect, oriented x 3 Skin: warm/dry Lymphatic: no adenopathy Laboratory Results Last 24 Hours Test 06/28/17 19:41 06/29/17 06:17 Vancomycin Level Trough 17.1 mcg/ml White Blood Count 16.37 K/uL Red Blood Count 3.93 M/uL Hemoglobin 11.9 g/dL Hematocrit 35.4 % Mean Corpuscular Volume 90.1 fL Mean Corpuscular Hemoglobin 30.3 pg Mean Corpuscular Hemoglobin Concent 33.6 g/dl RDW Standard Deviation 48.0 fL RDW Coefficient of Variation 14.5 % Platelet Count 300 K/uL Mean Platelet Volume 9.0 fL Nucleated RBC Absolute Count (auto) 0.03 K/uL Nucleated Red Blood Cells % 0.2 % Activated Partial Thromboplast Time 37.1 SECONDS Partial Thromboplastin Ratio 1.4 Assessment and Plan Infected left-sided pelvic lymphocele Status post percutaneous drainage yesterday To new antibiotics Await culture results Pending drain output ultimate culture results we will transition to oral antibiotics, pulled the drain and discharge him home likely 24-48 more hours in the hospital Okay to resume heparin Continued [facility] stay due to: multiple IV medications needed Discharge planning: home
[2017-06-29] MEDS: ACETAMINOPHEN 325 MG TAB PO PRN (14:37)
--- NOTE | 2017-06-29 19:13 | Progress Note ---
Subjective Date of Service: Jun 29, 2017. Subjective Patient has persistent abdominal pain and the area of his drain he has no chest pain or sensation of palpitations despite his persistent atrial fibrillation, this was present on presentation but after his procedure he has been more so tachycardic. Initially placed on heparin for the consideration of DVT this now will be because of his atrial fibrillation Problem List Medical Problems: (1) Intra-abdominal abscess Status: Acute Review of Systems Constitutional: + fever, + chills, + weakness, + fatigue Respiratory: No cough, No shortness of breath, No dyspnea on exertion Cardiac: + palpitations, No chest pain, No orthopnea, No edema Abdomen: + pain, No nausea, No vomiting, No diarrhea Male : No dysuria, No urinary frequency Psychiatric: No depression symptoms, No anhedonism Objective Vital Signs Date Time Temp Pulse Resp B/P (MAP) Pulse Ox O2 Delivery O2 Flow Rate FiO2 06/29/17 15:40 Room Air 06/29/17 14:55 37.7 120 18 135/75 (95) 92 Room Air 06/29/17 09:47 128 122/76 (91) 06/29/17 08:52 124 06/29/17 08:47 132 132/79 (96) 06/29/17 08:30 Room Air 06/29/17 07:30 36.7 119 18 126/65 (85) 95 Room Air 06/29/17 04:29 37.5 117 20 138/87 (104) 94 Room Air 06/28/17 23:45 37.2 136 22 138/82 (100) 94 Room Air 06/28/17 23:45 Room Air 06/28/17 22:04 37.5 130 22 129/76 (93) 92 Room Air 06/28/17 21:15 37.3 126 22 155/77 (103) 92 Room Air Physical Exam General Appearance: WD/WN, + mild distress Eyes: PERRL, EOMI Neck: supple, no JVD Respiratory/Chest: chest non-tender, lungs clear, normal breath sounds Cardiovascular: + tachycardia, + irregularly irregular Extremities: no pedal edema, no calf tenderness Neurologic/Psychiatric: alert, oriented x 3 Laboratory Results Last 24 Hours Test 06/28/17 19:41 06/29/17 06:17 Vancomycin Level Trough 17.1 mcg/ml White Blood Count 16.37 K/uL Red Blood Count 3.93 M/uL Hemoglobin 11.9 g/dL Hematocrit 35.4 % Mean Corpuscular Volume 90.1 fL Mean Corpuscular Hemoglobin 30.3 pg Mean Corpuscular Hemoglobin Concent 33.6 g/dl RDW Standard Deviation 48.0 fL RDW Coefficient of Variation 14.5 % Platelet Count 300 K/uL Mean Platelet Volume 9.0 fL Nucleated RBC Absolute Count (auto) 0.03 K/uL Nucleated Red Blood Cells % 0.2 % Activated Partial Thromboplast Time 37.1 SECONDS Partial Thromboplastin Ratio 1.4 Assessment and Plan Intra-abdominal/pelvic abscess with status post drainage consistent with abscess, post prostatectomy 18 days ago Vancomycin IV per pharmacokinetic monitoring.Zosyn 4.5 g IV every 6 hours. Famotidine 20 mg IV every 12 hours.Zofran 4 mg IV every 6 hours when necessary. Drainage of cystoceles performed on 06/28/2017 heparin will be continued after procedure DVT question chronic or acute started on heparin drip VQ scan negative pulmonary emboli. Repeat Doppler study Hypertension/atrial fibrillation--atrial fibrillation discovered on admission rate control has been challenging post procedure escalating doses of digoxin and metoprolol continuing heparin drip for the concern of thromboembolism if no good control by 06/30 we'll involve cardiology, echocardiogram Hyperlipidemia--reportedly on simvastatin Continued [facility] stay due to: multiple IV medications needed Discharge planning: home
[2017-06-29] MEDS ORDERED: DIGOXIN IV 250 MCG in SYRINGE 9 ML IV ONE (19:35)
[2017-06-29] MEDS: HEPARIN 25,000 UNIT/500ML D5W 500 ML IV PRN ×2 (19:52→23:16)
[2017-06-29] MEDS: ARTIFICIAL TEARS OP OINT 3.5 GM TUBE OP SCH (20:30)
[2017-06-29] MEDS: DiphenhydrAMINE 2%/ZINC 0.1% CREAM 28GM TUBE EXT PRN (20:31)
[2017-06-29] MEDS: METOPROLOL TARTRATE 25 MG TAB PO SCH (20:31)
[2017-06-29] MEDS: FAMOTIDINE 20 MG TAB PO SCH (20:35)
--- NOTE | 2017-06-29 22:19 | DIAGNOSTIC IMAGING REPORT ---
ULTRASOUND LEFT VENOUS DOPP LOWER EXT UNILAT CLINICAL HISTORY: Abnormal prior study. Possible DVT. COMPARISON STUDY: No previous studies for comparison. FINDINGS: Real-time and color flow Doppler imaging were performed. Flow was seen within the femoral, popliteal and calf veins with no intraluminal thrombus demonstrated. The saphenous vein is patent. There is slow flow within the left popliteal vein. IMPRESSION: No evidence of left lower extremity DVT. This study fails to confirm the presence of a left lower extremity venous thrombus Electronically signed by: Jl Gallego M.D. 06/29/2017 10:18 PM Dictated Date/Time: 06/29/2017 10:17 PM
[2017-06-30] VITALS (7 sets, daily range): BP systolic 140–162; BP diastolic 81–93; PULSE 99–112; TEMP 36.7–38.3; O2SAT 91–95
[2017-06-30] MEDS: NSS + 20MEQ KCL 1000ML 1,000 ML IV SCH ×3 (00:57→21:20)
[2017-06-30] MEDS: ACETAMINOPHEN 325 MG TAB PO PRN (00:58)
[2017-06-30] MEDS ORDERED: DIGOXIN IV 250 MCG in SYRINGE 9 ML IV ONE (01:00)
[2017-06-30 02:42] LABS: PARTIAL THROMBOPLASTIN RATIO 1.8
[2017-06-30] MEDS: SODIUM CHLORIDE 0.9% 10ML FLUSH IV SCH ×2 (04:07→16:00)
[2017-06-30] MEDS: PIPERACILL/TAZOBAC IV 4.5 GM in DEXTROSE 5% 100ML 100 ML IV SCH ×3 (04:07→21:20)
[2017-06-30] MEDS: HEPARIN 25,000 UNIT/500ML D5W 500 ML IV PRN ×5 (07:21→19:09)
[2017-06-30 07:58] LABS: PARTIAL THROMBOPLASTIN RATIO 1.8
[2017-06-30] MEDS ORDERED: PERFLUTREN LIPID MICROSPHERE (DEFINITY) IV ONE (08:03)
--- NOTE | 2017-06-30 08:04 | Progress Note ---
Subjective Date of Service: Jun 30, 2017. (Lexus Nuno CRNP) Subjective Pt evaluation today including: conversation w/ patient, chart review, lab review 61 yo male s/p drainage of lymphocele. Pt noted to have a fever of 38.3C overnight. White count has increased to 16.37 today. Drainage culture growing staph; sensitive to Vancomycin. No drainage output from drain noted today. Pt denies pain this morning. He continues to report "voice breaking up" when talking. (Lexus Nuno CRNP) Problem List Medical Problems: (1) Intra-abdominal abscess Status: Acute (Lexus Nuno CRNP) Review of Systems Constitutional: No fever, No chills Respiratory: No shortness of breath Cardiac: No chest pain Abdomen: No pain, No nausea, No vomiting Male : No dysuria, No hematuria Heme: No abnormal bleeding/bruising (Lexus Nuno CRNP) Objective Vital Signs Date Time Temp Pulse Resp B/P (MAP) Pulse Ox O2 Delivery O2 Flow Rate FiO2 06/30/17 02:17 36.8 06/30/17 00:57 100 06/30/17 00:50 38.3 108 16 155/93 (113) 06/29/17 23:31 37.9 111 17 136/75 (95) 92 Room Air 06/29/17 23:30 Room Air 06/29/17 20:29 145/87 (106) 06/29/17 19:50 107 06/29/17 15:40 Room Air 06/29/17 14:55 37.7 120 18 135/75 (95) 92 Room Air 06/29/17 09:47 128 122/76 (91) 06/29/17 08:52 124 06/29/17 08:47 132 132/79 (96) 06/29/17 08:30 Room Air (Lexus Nuno CRNP) Physical Exam General Appearance: no apparent distress, + obese Eyes: normal inspection ENT: hearing grossly normal Neck: no JVD Respiratory/Chest: no respiratory distress, no accessory muscle use Cardiovascular: no JVD Abdomen: + pertinent finding (abdominal incisions c/d/i; skin now appears pink around incision sites this morning) Extremities: normal inspection Neurologic/Psychiatric: alert, normal mood/affect, oriented x 3 Skin: normal color (Lexus Nuno CRNP) Laboratory Results Last 24 Hours Test 06/30/17 01:59 06/30/17 07:27 Activated Partial Thromboplast Time 47.1 SECONDS Partial Thromboplastin Ratio 1.8 (Lexus Nuno CRNP) Assessment and Plan 1. Bilateral pelvic lymphoceles s/p RALRP The pt should remain inpatient until he has been afebrile x 24hrs. Continue IV Vancomycin for now, and would switch him to 2 weeks of Bactrim DS prior to d/c home. Hopeful to d/c drain tomorrow if clinically improving. Will continue to follow along with primary service. 2. Left lung nodule Pt also noted to have an incidental finding of lung nodule on CT. Will refer to outpatient lung nodule program to follow. 3. DVT. No evidence of DVT on repeat u/s. Will allow primary service to manage. The pt was seen and assessed with Dr. Hudson this morning. Continued [facility] stay due to: multiple IV medications needed Discharge planning: home (Lexus Nuno CRNP) Patient fails to progress appropriately and my eyes Drain was removed yesterday with purulent discharge immediately behind the drain despite scant output from the drain for the 1st 48 hours He has had increasing erythema across his lower abdomen He is comfortable but maintains a leukocytosis I have discussed with him several different options including continued antibiotic coverage in observation, repeat percutaneous drainage, open surgical drainage Given the lack of desire from Radiology to drain the right-sided lymphocele, and the incomplete drainage of the left-sided lymphocele - he favors, and I agree, open surgical drainage Risks, benefits discussed at length We will plan for repeat CT this morning to assess the current status of the left -sided lymphocele Assuming there is still a significant fluid collection, we will plan to head to the operating room this afternoon/evening Of note he had a repeat ultrasound of his lower extremities on the evening of the , this showed no evidence of DVT - presumably implying that the initial study may not have been completely accurate in its diagnosis We will hold his heparin now in preparation for the OR, and he will likely not salvage determiner DVT anticoagulation (but will likely require prophylaxis secondary to his afib) (Miguel Hudson M.D.)
[2017-06-30 08:11] LABS: CREATININE 0.89 mg/dl (0.60-1.40)
[2017-06-30] MEDS: VANCOMYCIN INJ 1,500 MG in SODIUM CHLORIDE 0.9% 500ML 500 ML IV SCH ×2 (08:31→17:05)
[2017-06-30] MEDS: POLYETHYLENE (MIRALAX) 17 GM PACK PO SCH ×2 (08:35→17:11)
[2017-06-30] MEDS: SENNA 8.6 MG TAB PO SCH (08:35)
[2017-06-30] MEDS: ASPIRIN 81 MG ECTAB PO SCH (08:39)
[2017-06-30] MEDS: METOPROLOL TARTRATE 25 MG TAB PO SCH (08:39)
[2017-06-30] MEDS: ASCORBIC ACID 500 MG TAB PO SCH (08:39)
[2017-06-30] MEDS: FAMOTIDINE 20 MG TAB PO SCH ×2 (08:39→21:21)
[2017-06-30] MEDS: MULTIVITAMIN TAB PO SCH (08:39)
[2017-06-30] MEDS: DOCUSATE SODIUM 100 MG CAP PO SCH ×2 (08:39→21:22)
--- NOTE | 2017-06-30 11:48 | Pharmacy Progress Note ---
Pharmacy Abx Dose Short Note Date of Service Jun 30, 2017. Assessment & Plan Assessment 61 year old male receiving vancomycin and zosyn for treatment of cellulitis/ intra-abdominal abscess Day # 6 of antimicrobial therapy. Plan Vancomycin * Trough level of 13 mcg/mL is subtherapeutic * Change to 1500 mg IV every 10 hours * Goal trough level 15-20 mcg/mL * Trough ordered for 07/01 @ 1230 * Spoke with [facility] about deescalation- was hesitant to change due to fever last night. Pharmacy will continue to follow and will adjust dose/frequency as necessary. Thank you.
--- NOTE | 2017-06-30 12:15 | ECHOCARDIOGRAM REPORT ---
*NOTICE TO RECEIVING REPUBLICAN AGENCY This information is strictly Confidential and protected under [place] law. [place] law prohibits you from making any further disclosure of this information unless further disclosure is expressly permitted by the written consent of the person to whom it pertains or is authorized by law. A general authorization for the release of medical or other information is not sufficient for this purpose. Hospital accepts no responsibility if the information is made available to any other person, INCLUDING THE PATIENT. Interpretation Summary * Name: TEJINDER PRINCE Study Date: 06/30/2017 07:02 AM BP: 155/93 mmHg * Patient Location: .[employer]\S\W356\S\2 HR: 100 * : 1955 (M/d/yyy) Gender: Male Height: 71 in * Age: 61 yrs Ethnicity: [place] Weight: 275 lb * Ordering Physician: Shai Ventura * Referring Physician: Self, Referred * Performed By: Ghada Rizvi RCS * * Reason For Study: A-FIB * BSA: 2.4 m2 * Normal biventricular systolic function. * Mild biatrial dilatation. * No significant valvular abnormalities. Procedure Details * A complete two-dimensional transthoracic echocardiogram was performed (2D, M-mode, Doppler and color flow Doppler). * A contrast injection of Definity was performed to improve assessment of LV function. * Contrast was injected into an intravenous site in the left arm. * One vial of Definity ultrasound contrast was diluted in normal saline to a total volume of 10 ml. A total of '2' ml of solution was administered during imaging. * Lot # [id number] of Definity utilized for procedure. * Expiration date . * The attending nurse who injected the contrast agent was Heidi Hickman RN. Left Ventricle * The left ventricle is normal in size. * There is normal left ventricular wall thickness. * Ejection Fraction = 60-65%. * Left ventricular systolic function is normal. * The left ventricular wall motion is normal. Right Ventricle * The right ventricle is normal in size and function. * The right ventricular systolic function is normal as assessed by tricuspid annular plane systolic excursion (TAPSE) (normal >1.5 cm). Atria * The left atrium is mildly dilated. * The right atrium is mildly dilated. Mitral Valve * The mitral valve is normal. * There is no mitral valve stenosis. * There is trace mitral regurgitation. Tricuspid Valve * The tricuspid valve is not well visualized, but is grossly normal. * There is no tricuspid stenosis. * There is trace tricuspid regurgitation. Aortic Valve * The aortic valve is trileaflet. * The aortic valve opens well. * Aortic stenosis is absent. * No aortic regurgitation is present. Pulmonic Valve * The pulmonic valve is not well visualized. * The pulmonary valve is inadequately visualized, but the Doppler data is adequate for interpretation. * There is no pulmonic valvular stenosis. * There is no significant pulmonary regurgitation. Great Vessels * The aortic root is normal size. Pericardium/Pleural * There is no pericardial effusion. MMode 2D Measurements and Calculations IVSd 1.1 cm IVSs 1.5 cm LVIDd 4.5 cm LVIDs 3.0 cm LVPWd 1.1 cm LVPWs 1.4 cm IVS/LVPW 0.94 FS 33.6 % EDV(Teich) 92.0 ml ESV(Teich) 34.4 ml EF(Teich) 62.6 % EDV(cubed) 90.5 ml ESV(cubed) 26.5 ml EF(cubed) 70.8 % % IVS thick 39.2 % % LVPW thick 20.8 % LV mass(C)d 178.3 grams LV mass(C)dI 73.9 grams/m\S\2 LV mass(C)s 147.7 grams LV mass(C)sI 61.2 grams/m\S\2 CO(Teich) 5.6 l/min CI(Teich) 2.3 l/min/m\S\2 SV(Teich) 57.5 ml SI(Teich) 23.8 ml/m\S\2 CO(cubed) 6.2 l/min CI(cubed) 2.6 l/min/m\S\2 SV(cubed) 64.1 ml SI(cubed) 26.5 ml/m\S\2 Ao root diam 3.7 cm Ao root area 10.9 cm\S\2 ACS 1.8 cm LA dimension 4.5 cm asc Aorta Diam 3.4 cm LA/Ao 1.2 LVAd ap4 35.9 cm\S\2 LVLd ap4 8.8 cm EDV(MOD-sp4) 122.0 ml LVAs ap4 21.8 cm\S\2 LVLs ap4 7.5 cm ESV(MOD-sp4) 54.0 ml EF(MOD-sp4) 55.7 % LVAd ap2 32.8 cm\S\2 LVLd ap2 9.1 cm EDV(MOD-sp2) 98.0 ml LVAs ap2 17.6 cm\S\2 LVLs ap2 7.8 cm ESV(MOD-sp2) 33.0 ml EF(MOD-sp2) 66.3 % CO(MOD-sp4) 6.6 l/min CI(MOD-sp4) 2.7 l/min/m\S\2 SV(MOD-sp4) 68.0 ml SI(MOD-sp4) 28.2 ml/m\S\2 CO(MOD-sp2) 6.3 l/min CI(MOD-sp2) 2.6 l/min/m\S\2 SV(MOD-sp2) 65.0 ml SI(MOD-sp2) 26.9 ml/m\S\2 Doppler Measurements and Calculations MV E max elisabeth 143.1 cm/sec MV dec time 0.27 sec Ao V2 max 147.7 cm/sec Ao max PG 8.7 mmHg Ao max PG (full) 6.3 mmHg LV V1 max PG 2.5 mmHg LV V1 max 78.4 cm/sec PA V2 max 107.5 cm/sec PA max PG 4.7 mmHg
[2017-06-30] MEDS ORDERED: POTASSIUM CHLORIDE 10 MEQ TABCR PO STA (13:57)
[2017-06-30] MEDS ORDERED: FUROSEMIDE 40 MG TAB PO ONE (14:00)
--- NOTE | 2017-06-30 15:17 | CARDIOLOGY CONSULTATION ---
DATE OF CONSULTATION: 06/30/2017 DATE OF CONSULTATION: 06/30/2017 REFERRING PHYSICIAN: Dr. Ventura. PRIMARY CARE PHYSICIAN: [place]. PRIMARY STAY CUTTER: Lynn [facility]wn [facility]. HISTORY OF PRESENT ILLNESS: The patient is a 61-year-old male with recent prostatectomy readmitted with pelvic abscess and sepsis type syndrome, status post percutaneous drainage. The patient referred for evaluation of atrial fibrillation with elevated ventricular response rates. His past medical history is notable for chronic atrial fibrillation dating back greater than 5 years, history of hypertension, history of morbid obesity status post lap band implantation, history of hyperlipidemia on therapy. The patient previously had underlying conduction system disease observed with the patient not requiring AV alycia drugs for rate control with atrial fibrillation. He was also not anticoagulated due to CHADSVASC2 score of 1 and past significant epistaxis. The patient today feels improved since hospitalization, did note presented with severe rigors and chills, denies any chest pains, does complain of mild breathlessness today as well as hoarseness with speaking. Did require antibiotic therapy and fluid resuscitation due to acute sepsis syndrome, rigors and chills. Cultures are now growing Staph aureus. Heart rate since admission have been elevated 100-120 and are slow to return to baseline despite recent addition of metoprolol to regimen. He currently denies fevers. Notes no melena or hematochezia. Notes no bleeding difficulties. Weight is trended upward recently, uncertain weight gain since hospitalization. Notes that original response to past lap banding resulted in approximately 50-60 pound weight loss with now return to near presurgical weight. Notes no headache or visual changes. Notes no worsening rash or arthritic complaint. ALLERGIES: NOTED TO BE SULFA. MEDICATIONS: Prior to hospitalization were amlodipine 5 mg daily, vitamin C 500 mg p.o. every day, aspirin 81 mg per day, Coenzyme Q10 100 mg q.p.m., doxycycline 100 mg q. 12 hours, losartan 25 mg p.o. daily, lutein 6 mg q.a.m., multivitamin per day, simvastatin 20 mg p.o. q. day, Cialis 20 mg p.o. q. day. PAST SURGICAL HISTORY: As described notable for recent prostatectomy, history of past gastric band implantation in 2010, prior knee arthroscopic surgery. FAMILY HISTORY: Notable for heart disease in mother who underwent coronary bypass grafting. SOCIAL HISTORY: The patient resides in [place]. He works as an insurance billing specialist. He has an occasional cigar smoker. Drinks approximately 2-3 drinks per week. PHYSICAL EXAMINATION: GENERAL: The patient is an age appropriate male, somewhat plethoric in appearance. VITAL SIGNS: Heart rate is 100, blood pressure is 145/80. HEAD, EYES, EARS, NOSE, AND THROAT: Normocephalic, atraumatic. NECK: Thick. There is no distinct jugular venous distention or carotid bruits. LUNGS: Reveal diminished breath sounds. CARDIOVASCULAR EXAMINATION: Irregularly irregular with distant heart sounds. There is no S3 gallop. ABDOMEN: Obese, moderately large panniculus. There is surrounding erythema of the skin in the lower abdominal wall and panniculus. EXTREMITIES: Without cyanosis, clubbing. There is trace pedal edema. There is no palpable cord or Homans sign. LABORATORY DATA: EKG done on presentation revealed atrial fibrillation with elevated ventricular response rates 120, repeat EKG pending. Sodium is 140, potassium is 3.6, chloride is 109, bicarb was 21 on last testing. Recent studies included lower extremity ultrasound without distinct evidence of DVT with slow flow within the popliteal vein. The patient did undergo since admission lung scan which was negative for pulmonary embolus with a very low probability scan. IMPRESSION: A 61-year-old male with history of morbid obesity, longstanding hypertension, chronic atrial fibrillation in the past not requiring AV alycia blocking medications for rate control. He has also not been anticoagulated due to low CHADSVASC2 score. Presents now complicated history of pelvic abscess, possible surrounding panniculitis and sepsis syndrome. He has responded to therapies, is on broad-spectrum antibiotics and has received fluid resuscitation since admission. Heart rates however have been elevated and remain persistently elevated in atrial fibrillation being driven by underlying illness. Echocardiogram per report demonstrates preserved LV systolic function, no significant valvular disease. RECOMMENDATIONS: We will increase metoprolol to 50 mg twice per day. Hold further digoxin given history of intrinsic conduction system disease. I agree with anticoagulation with likely conversion to oral anticoagulation for at least a period of 2-3 months' time unless contraindications develop. The patient continues to have relatively low CHADSVASC score though appears at elevated risk given body habitus and recent procedures. I will review echocardiogram formally but no significant valvular pathology was noted. Exam does suggest mild volume overload on the basis of large volume fluid resuscitation appropriate for initial therapy. He continues to receive sizeable amount of IV fluids with antibiotic therapy PLAN: Will be to give a single dose of Lasix and potassium in addition to increasing metoprolol. Will need need to follow wound exams closely given surrounding erythema, ? panniculitis. MTDD
--- NOTE | 2017-06-30 19:00 | Progress Note ---
Subjective Date of Service: Jun 30, 2017. Subjective Patient has been doing well he does assume rashes abdomen pain is in good control his atrial fibrillation continues to remain with rapid rate cardiac consult has been undertaken echo cardiac exam is pending Problem List Medical Problems: (1) Intra-abdominal abscess Status: Acute Review of Systems Constitutional: + weakness, No fever, No chills, No fatigue Respiratory: No cough, No shortness of breath, No dyspnea on exertion Cardiac: No chest pain, No orthopnea, No edema Abdomen: + pain, No nausea, No vomiting, No diarrhea Musculoskeletal: No joint pain, No muscle pain, No swelling Psychiatric: No depression symptoms Objective Vital Signs Date Time Temp Pulse Resp B/P (MAP) Pulse Ox O2 Delivery O2 Flow Rate FiO2 06/30/17 15:26 37.0 112 20 142/81 (101) 95 Room Air 06/30/17 08:41 36.7 99 20 148/87 (107) 94 Room Air 06/30/17 08:20 94 Room Air 06/30/17 02:17 36.8 06/30/17 00:57 100 06/30/17 00:50 38.3 108 16 155/93 (113) 06/29/17 23:31 37.9 111 17 136/75 (95) 92 Room Air 06/29/17 23:30 Room Air 06/29/17 20:29 145/87 (106) 06/29/17 19:50 107 Physical Exam General Appearance: WD/WN, + mild distress Neck: supple, thyroid normal Respiratory/Chest: chest non-tender, lungs clear, normal breath sounds Cardiovascular: + tachycardia, + irregularly irregular Abdomen: normal bowel sounds, soft, + guarding, + tenderness Extremities: no pedal edema, no calf tenderness Laboratory Results Last 24 Hours Test 06/30/17 01:59 06/30/17 07:27 Activated Partial Thromboplast Time 47.1 SECONDS 47.3 SECONDS Partial Thromboplastin Ratio 1.8 1.8 Creatinine 0.89 mg/dl Est Creatinine Clear Calc Drug Dose 114.3 ml/min Estimated GFR () 105.5 Estimated GFR (Non- 91.0 Vancomycin Level Trough 13.0 mcg/ml Assessment and Plan Intra-abdominal/pelvic abscess with status post drainage consistent with abscess, post prostatectomy 18 days ago found to be staph resistant to clindamycin Vancomycin IV per pharmacokinetic monitoring.we'll of infectious C, outpatient treatment as the patient does have a sulfa allergy so Bactrim would not be appropriate Drainage of cystoceles performed on 06/28/2017 heparin will be continued after procedure DVT question chronic or acute started on heparin drip VQ scan negative pulmonary emboli. Repeat Doppler study is negative however anticoagulation will be for his atrial fibrillation Hypertension/atrial fibrillation--atrial fibrillation discovered on admission rate control has been challenging post procedure escalating doses of digoxin and metoprolol continuing heparin drip for the concern of thromboembolism cardiology has seen recommends in escalating doses of metoprolol and transitional oral Coumadin Hyperlipidemia--reportedly on simvastatin Daughter Alexandra was updated by phone [phone] Continued [facility] stay due to: multiple IV medications needed Discharge planning: home
--- NOTE | 2017-06-30 19:38 | Progress Note ---
Progress Note Date of Service Jun 30, 2017. Progress Note I was notified evening that the patient's pannus and become more erythematous and that he was having purulent drainage around his CT applied drain. Next I spoke to the radiologist to place to drain, we decided to remove the drain. I was able to remove the drain per the instructions of the radiologist and also what likely was a placement device which appear to be a silk black string the device was removed in total and promptly purulent material with some blood was easily expressible and freely draining from the tract. I updated the patient and his requests his [id number] Alexandra, we will apply absorptive dressing and likely need to reexplore this loculated abscess on July 02
[2017-06-30] MEDS: METOPROLOL TARTRATE 50 MG TAB PO SCH (21:21)
[2017-06-30] MEDS: ARTIFICIAL TEARS OP OINT 3.5 GM TUBE OP SCH (21:22)
[2017-07-01] MEDS: HEPARIN 25,000 UNIT/500ML D5W 500 ML IV PRN ×4 (01:31→08:55)
[2017-07-01] MEDS: DiphenhydrAMINE 2%/ZINC 0.1% CREAM 28GM TUBE EXT PRN (01:34)
[2017-07-01] MEDS: VANCOMYCIN INJ 1,500 MG in SODIUM CHLORIDE 0.9% 500ML 500 ML IV SCH (04:44)
[2017-07-01] MEDS: PIPERACILL/TAZOBAC IV 4.5 GM in DEXTROSE 5% 100ML 100 ML IV SCH ×2 (04:44→12:19)
[2017-07-01 06:23] LABS: HEMATOCRIT 34.1 % (42-52); MEAN CELL VOLUME 89.3 fL (80-100); MEAN CORPUSCULAR HEMOGLOBIN 30.4 pg (25-34); MEAN PLATELET VOLUME 8.8 fL (7.4-10.4); PLATELET COUNT 375 K/uL (130-400); RED BLOOD COUNT 3.82 M/uL (4.7-6.1)
[2017-07-01 07:00] LABS: BUN/CREATININE RATIO 8.7 (10-20); CALCIUM 8.4 mg/dl (8.5-10.1); CREATININE 0.92 mg/dl (0.60-1.40); POTASSIUM 3.7 mmol/L (3.5-5.1)
[2017-07-01 07:02] LABS: PARTIAL THROMBOPLASTIN RATIO 2.1
[2017-07-01 07:22] VITALS: BP 146/87; PULSE 95; TEMP 36.7; O2SAT 93
[2017-07-01] MEDS: NSS + 20MEQ KCL 1000ML 1,000 ML IV SCH ×2 (08:36→23:02)
[2017-07-01 08:45] VITALS: O2SAT 95
--- NOTE | 2017-07-01 08:48 | Progress Note ---
Subjective Date of Service: Jul 01, 2017. Subjective Pt evaluation today including: conversation w/ patient, chart review, lab review Voiding: no voiding problems 61 yo male with bilateral lymphoceles s/p RALRP. S/p drainage. Unfortunately the pt's drain was not draining properly since placed. Removed yesterday by Dr. Ventura, and pt now with some purulent drainage in drainage bag attached to drain site. He denies pain this morning. Remains on Vancomycin. ID consult pending. Problem List Medical Problems: (1) Intra-abdominal abscess Status: Acute Review of Systems Constitutional: No fever, No chills Respiratory: No shortness of breath Cardiac: No chest pain Abdomen: No pain, No nausea, No vomiting Male : No dysuria, No hematuria Heme: No abnormal bleeding/bruising Objective Vital Signs Date Time Temp Pulse Resp B/P (MAP) Pulse Ox O2 Delivery O2 Flow Rate FiO2 07/01/17 07:22 36.7 95 20 146/87 (106) 93 Room Air 06/30/17 23:36 37.0 100 18 140/87 (104) 91 Room Air 06/30/17 21:24 107 162/85 (110) 06/30/17 20:45 Room Air 06/30/17 15:26 37.0 112 20 142/81 (101) 95 Room Air 06/30/17 15:14 Room Air 06/30/17 08:41 36.7 99 20 148/87 (107) 94 Room Air Physical Exam General Appearance: no apparent distress, + obese Eyes: normal inspection ENT: hearing grossly normal Neck: no JVD Respiratory/Chest: no respiratory distress, no accessory muscle use Cardiovascular: no JVD Abdomen: + pertinent finding (erythema noted around previous robotic incision sites; purulent drainage noted from previous drain site) Extremities: normal inspection Neurologic/Psychiatric: alert, normal mood/affect, oriented x 3 Skin: normal color Laboratory Results Last 24 Hours Test 07/01/17 05:26 White Blood Count 15.50 K/uL Red Blood Count 3.82 M/uL Hemoglobin 11.6 g/dL Hematocrit 34.1 % Mean Corpuscular Volume 89.3 fL Mean Corpuscular Hemoglobin 30.4 pg Mean Corpuscular Hemoglobin Concent 34.0 g/dl RDW Standard Deviation 48.0 fL RDW Coefficient of Variation 14.7 % Platelet Count 375 K/uL Mean Platelet Volume 8.8 fL Nucleated RBC Absolute Count (auto) 0.04 K/uL Nucleated Red Blood Cells % 0.3 % Activated Partial Thromboplast Time 53.5 SECONDS Partial Thromboplastin Ratio 2.1 Sodium Level 138 mmol/L Potassium Level 3.7 mmol/L Chloride Level 106 mmol/L Carbon Dioxide Level 24 mmol/L Anion Gap 8.0 mmol/L Blood Urea Nitrogen 8 mg/dl Creatinine 0.92 mg/dl Est Creatinine Clear Calc Drug Dose 110.6 ml/min Estimated GFR () 102.2 Estimated GFR (Non- 88.2 BUN/Creatinine Ratio 8.7 Random Glucose 103 mg/dl Calcium Level 8.4 mg/dl Assessment and Plan 1. Bilateral pelvic lymphoceles s/p RALRP Unfortunately pt continues to have drainage despite attempted drainage by radiology. Will recheck a non-contrast CT this morning and plan for the OR this afternoon for exploratory laparotomy and abscess drainage. Risks and benefits of the procedure discussed with the pt. All questions answered. Consent obtained. 2. Left lung nodule Pt also noted to have an incidental finding of lung nodule on CT. Will refer to outpatient lung nodule program to follow. 3. DVT. No evidence of DVT on repeat u/s. Heparin running for a-fib. Will hold for OR later today. Check PT/PTT at 1600 today. Will continue to follow along with primary service. Continued [facility] stay due to: multiple IV medications needed Discharge planning: home
[2017-07-01] MEDS: MULTIVITAMIN TAB PO SCH (09:00)
[2017-07-01] MEDS: SENNA 8.6 MG TAB PO SCH (09:00)
[2017-07-01] MEDS: ASPIRIN 81 MG ECTAB PO SCH (09:01)
[2017-07-01] MEDS: DOCUSATE SODIUM 100 MG CAP PO SCH ×2 (09:01→23:23)
[2017-07-01] MEDS: FAMOTIDINE 20 MG TAB PO SCH ×2 (09:02→23:24)
[2017-07-01] MEDS: METOPROLOL TARTRATE 50 MG TAB PO SCH (09:02)
[2017-07-01] MEDS: ASCORBIC ACID 500 MG TAB PO SCH (09:03)
--- NOTE | 2017-07-01 11:43 | DIAGNOSTIC IMAGING REPORT ---
CT SCAN OF THE ABDOMEN AND PELVIS WITHOUT CONTRAST CLINICAL HISTORY: Intra-abdominal abscess. Prostate carcinoma. COMPARISON STUDY: 06/25/2017, 06/28/2017 TECHNIQUE: CT scan of the abdomen and pelvis was performed from the lung bases to the proximal femurs. Images are reviewed in the axial, sagittal, and coronal planes. IV contrast was not administered for this examination. A dose lowering technique was utilized adhering to the principles of ALARA. CT DOSE: 1097.20 mGycm FINDINGS: Lower chest: There are small bilateral pleural effusions with bibasal airspace opacities likely atelectatic. Liver: The unenhanced liver is normal in size, contour, and attenuation. There is no intrahepatic biliary ductal dilatation. Gallbladder: Unremarkable. Spleen: Normal in size and attenuation. Pancreas: Unremarkable. Adrenal glands: Unremarkable. Kidneys: The unenhanced kidneys are normal in size without hydronephrosis. There is no contour deforming renal mass lesion. No renal calculi are identified. Bowel: There are postsurgical changes of a gastric banding procedure. There are no transition zones indicate bowel obstruction. There is colonic diverticulosis. There are no acute peridiverticular inflammatory changes. There is a right-sided spegelian hernia containing a knuckle of small bowel. There is no current obstruction. There is a tiny appendicolith in an otherwise normal appendix. Peritoneum: There is no intraperitoneal free air or abdominal ascites. Vasculature: The abdominal aorta is normal in course and caliber. Adenopathy: None. Pelvic viscera: There are postsurgical changes of a prostatectomy. There are bilateral pelvic sidewall fluid collections. The pigtail drainage catheter has been removed from the left pelvic sidewall fluid collection. This collection measures 7 x 3 cm and appears smaller than on the predrainage study. The right pelvic sidewall collection measures 4 x 3 cm, is also slightly smaller than on the prior study. There is enlargement left rectus sheath, likely secondary to a small rectus sheath hematoma. A developing rectus abscess would be indistinguishable on CT scanning. Skeletal structures: No destructive osseous lesions are seen. IMPRESSION: 1. Small bilateral pleural effusions with bibasal atelectasis 2. No evidence of bowel obstruction. No evidence of free air 3. Colonic diverticulosis. No evidence of acute diverticulitis. Tiny appendicolith in an otherwise normal appendix.. 4. Right-sided spegelian hernia containing a knuckle of small bowel. No current evidence of obstruction 5. Interval decrease in the size of the pelvic sidewall abscesses. 6. Enlargement of the left rectus sheath, likely secondary to a hematoma. Electronically signed by: Jl Gallego M.D. 07/01/2017 11:42 AM Dictated Date/Time: 07/01/2017 11:32 AM
[2017-07-01] MEDS ORDERED: VANCOMYCIN TROUGH SCH (12:30)
--- NOTE | 2017-07-01 13:09 | Progress Note ---
Progress Note Date of Service Jul 01, 2017. Progress Note ID Consult Dictated #[id number] A/P: 1. MSSA Intra abd abscess 2. Leukocytosis -WIll change to CTX, maintian IV for now, npo for I&D later today -Await OR findings -Will need prolonged abx, IV vs po. At this time would prefer IV, likely ctx 2g IV q24 but will await OR findings -Will follow, thank you
--- NOTE | 2017-07-01 14:30 | INFECT. DISEASE CONSULTATION ---
DATE OF CONSULTATION: 07/01/2017 REQUESTING PHYSICIAN: Dr. Ventura. HISTORY OF PRESENT ILLNESS: This is a 61-year-old gentleman who was admitted after he had worsening fevers and chills over the few days prior to admission. He did have a prostatectomy done a few weeks prior and had worsening symptoms. He was found on initial CAT scan of the abdomen and pelvis to have a 9 x 6 x 6.5 cm abscess. He also had a smaller approximately 4 x 5 cm abscess as well. These were drained and the catheter was placed. Cultures from this are growing MSSA. He also had blood cultures on the , which are negative and final. He did have a leukocytosis of 13.9. This improved somewhat on the , but worsened yesterday and today is 15.5. He was having issues with his drain and that it was not flushing or suctioning well. It was pulled last night and repeat imaging of the abdomen was obtained today. Review of this shows that the collection is now measuring 7.3 and a smaller collection is now 4.3 cm. The patient states that he is on the OR schedule later today for additional I&D procedure. He has been on intravenous vancomycin and Zosyn since admission to the hospital and is tolerating these well. He denies any fevers or chills currently. He states his appetite is somewhat diminished. He continues with abdominal pain, but states overall this is improving. He does have diffuse erythema across the lower portion of the abdomen, which he states is improving since admission to the hospital. He currently has a collection bag over the area of his previous catheter site and this continues to seep seropurulent fluid. He denies any chest pain, cough or shortness of breath. He has no nausea, vomiting or diarrhea. All remaining review of systems is reviewed and are unremarkable. PAST MEDICAL HISTORY: Significant for hypertension. PAST SURGICAL HISTORY: Significant for recent prostatectomy and subsequent drainage of abscess collection. FAMILY HISTORY: Noncontributory. SOCIAL HISTORY: Significant for occasional tobacco use. He denies any alcohol or drug use. He is and lives with family. ALLERGIES: HE HAS ALLERGY TO SULFA ANTIBIOTICS. CURRENT MEDICATIONS: Include Lopressor, vancomycin, Pepcid, acetaminophen, Senokot, MiraLax, Ecotrin, Colace, multivitamin, vitamin C, Zosyn, Benadryl, Zofran, Tylenol, and Ambien. PHYSICAL EXAMINATION: VITAL SIGNS: She is afebrile, pulse 95, respiratory rate is 20, blood pressure is 146/87 and oxygen saturation is 93%-95% on room air. GENERAL: He is awake, alert and oriented x3. He is in no acute distress. HEENT: Mucous membranes are moist. Extraocular muscles are intact. HEART: Regular. LUNGS: Clear to auscultation bilaterally. ABDOMEN: Soft and nondistended. There is tenderness across the suprapubic area. There is diffuse erythema across the abdomen in the area of his old drainage catheter site, extending to both bilateral flanks. This is warm and tender to palpation. He does have a collection bag at the site of his old catheter, which does have seropurulent fluid accumulating, although minimally. EXTREMITIES: There is no lower extremity edema bilaterally. SKIN: Without rash. LABORATORY STUDIES: CBC today reveals a white blood cell count of 15.5, hemoglobin 11.6 and platelets are 375. Chemistry panel reveals a sodium of 138, potassium 3.7, chloride 106, bicarb 24, BUN 8, creatinine 0.9, and glucose is 103. Urinalysis on the is unremarkable. Abscess culture is growing MSSA with resistance to clindamycin and erythromycin. Blood cultures are negative. IMAGING: As reviewed previously. Chest x-ray in the Emergency Room was unremarkable for acute disease. ASSESSMENT AND PLAN: Intra-abdominal abscesses with methicillin-sensitive Staphylococcus aureus, which persists. I agree with additional drainage. I do not feel that antibiotics alone will be helpful in an abscess of this size. Repeat culture should be obtained. He will remain on intravenous vancomycin for now pending OR procedure. The Zosyn can be discontinued. Certainly, he could be discharged on oral antibiotics; however, I will maintain IV antibiotics and reassess based on operative findings later today. We will follow along with you. Thank you for this consultation. JUAN ANTONIO
[2017-07-01] MEDS: CEFTRIAXONE SOD INJ 2,000 MG in DEXTROSE 5% 50ML 50 ML IV SCH (15:00)
[2017-07-01 15:33] VITALS: BP 133/94; PULSE 111; TEMP 36.9; O2SAT 94
[2017-07-01 17:02] LABS: INR 1.1 (0.9-1.1); PARTIAL THROMBOPLASTIN RATIO 1.3
[2017-07-01] MEDS ORDERED: PROPOFOL IV EMULSION 10 MG/ML 20 ML VIAL IV ONE (17:30)
[2017-07-01] MEDS ORDERED: DEXAMETHASONE SOD INJ 4 MG/ML VIAL ONE (17:30)
[2017-07-01] MEDS ORDERED: NEOSTIGMINE METHYLSULFATE 5 MG/5 ML SYR ONE ×2 (17:30→21:02)
[2017-07-01] MEDS ORDERED: LIDOCAINE HCL 2% 2 ML VIAL (20MG/ML) ONE (17:30)
[2017-07-01] MEDS ORDERED: ROCURONIUM BROMIDE 10 MG/ML 5 ML VIAL IV ONE ×2 (17:30→18:38)
[2017-07-01] MEDS ORDERED: GLYCOPYRROLATE INJ 0.2 MG/ML VIAL ONE ×2 (17:30→21:02)
[2017-07-01] MEDS ORDERED: ONDANSETRON INJ 2 MG/ML 2 ML VIAL ONE ×2 (17:30→21:02)
[2017-07-01] MEDS ORDERED: MIDAZOLAM HCL 1 MG/ML 2ML VIAL ONE (17:31)
[2017-07-01] MEDS ORDERED: FENTANYL CITRATE INJ 50 MCG/1 ML 2 ML VIAL ONE ×2 (17:31→18:26)
[2017-07-01] MEDS ORDERED: EpHEDrine SULFATE INJ 50 MG/ML AMP IV PRN (17:45)
[2017-07-01] MEDS ORDERED: FENTANYL CITRATE INJ 50 MCG/1 ML 2 ML VIAL IV PRN (17:45)
[2017-07-01] MEDS ORDERED: ATROPINE SULFATE 0.1 MG/ML 5ML SYR IV PRN (17:45)
[2017-07-01] MEDS ORDERED: ONDANSETRON INJ 2 MG/ML 2 ML VIAL IV PRN (17:45)
[2017-07-01] MEDS ORDERED: HYDROmorphone INJ 1 MG/ML SYR IV PRN (17:45)
[2017-07-01] MEDS ORDERED: BUPIVACAINE 0.5 % 5 MG/1 ML MPF 30ML VIAL ONE (18:06)
[2017-07-01] MEDS ORDERED: BACITRACIN 50000 UNIT VIAL ONE (18:07)
[2017-07-01] MEDS ORDERED: METOPROLOL TARTRATE 1 MG/ML VIAL ONE (18:37)
[2017-07-01] MEDS ORDERED: ROCURONIUM BROMID 50MG/5ML SYR ONE ×2 (18:38)
[2017-07-01] MEDS ORDERED: ESMOLOL HCL 10 MG/ML 10 ML VIAL ONE ×2 (18:40→19:49)
--- NOTE | 2017-07-01 18:55 | Progress Note ---
Subjective Date of Service: Jul 01, 2017. Subjective Patient feels better with his drain out and the fact that his wound has been spontaneously draining he is scheduled to return to the operating room for incision and drainage of his abdominal abscesses. Per the patient's request I updated his [id number] Alexandra after not being able to reach his son em Problem List Medical Problems: (1) Intra-abdominal abscess Status: Acute Review of Systems Constitutional: + fever, + chills, + weakness Respiratory: No cough, No sputum, No shortness of breath, No dyspnea on exertion Cardiac: + edema, No chest pain, No orthopnea, No PND Abdomen: + pain, + problem reported (draining suprapubic wound less abdominal redness), No nausea, No vomiting, No diarrhea, No constipation Psychiatric: No depression symptoms, No anxiety Objective Vital Signs Date Time Temp Pulse Resp B/P (MAP) Pulse Ox O2 Delivery O2 Flow Rate FiO2 07/01/17 17:15 36.7 102 20 148/92 (110) 96 Room Air 07/01/17 15:33 36.9 111 18 133/94 (107) 94 Room Air 07/01/17 08:45 95 Room Air 07/01/17 07:22 36.7 95 20 146/87 (106) 93 Room Air 06/30/17 23:36 37.0 100 18 140/87 (104) 91 Room Air 06/30/17 21:24 107 162/85 (110) 06/30/17 20:45 Room Air Physical Exam General Appearance: + mild distress, + obese Eyes: PERRL, EOMI Neck: supple, no JVD Respiratory/Chest: chest non-tender, + decreased breath sounds, + accessory muscle use Cardiovascular: + tachycardia, + irregularly irregular Abdomen: normal bowel sounds, soft, + guarding, + tenderness, + pertinent finding (his lower pannus is red) Extremities: normal range of motion, non-tender Neurologic/Psychiatric: alert, oriented x 3 Laboratory Results Last 24 Hours Test 07/01/17 05:26 07/01/17 12:39 07/01/17 16:29 White Blood Count 15.50 K/uL Red Blood Count 3.82 M/uL Hemoglobin 11.6 g/dL Hematocrit 34.1 % Mean Corpuscular Volume 89.3 fL Mean Corpuscular Hemoglobin 30.4 pg Mean Corpuscular Hemoglobin Concent 34.0 g/dl RDW Standard Deviation 48.0 fL RDW Coefficient of Variation 14.7 % Platelet Count 375 K/uL Mean Platelet Volume 8.8 fL Nucleated RBC Absolute Count (auto) 0.04 K/uL Nucleated Red Blood Cells % 0.3 % Activated Partial Thromboplast Time 53.5 SECONDS 34.0 SECONDS Partial Thromboplastin Ratio 2.1 1.3 Sodium Level 138 mmol/L Potassium Level 3.7 mmol/L Chloride Level 106 mmol/L Carbon Dioxide Level 24 mmol/L Anion Gap 8.0 mmol/L Blood Urea Nitrogen 8 mg/dl Creatinine 0.92 mg/dl Est Creatinine Clear Calc Drug Dose 110.6 ml/min Estimated GFR () 102.2 Estimated GFR (Non- 88.2 BUN/Creatinine Ratio 8.7 Random Glucose 103 mg/dl Calcium Level 8.4 mg/dl Vancomycin Level Trough 17.2 mcg/ml Prothrombin Time 12.0 SECONDS Prothromb Time International Ratio 1.1 Assessment and Plan Intra-abdominal/pelvic abscess with status post drainage consistent with abscess, post prostatectomy 18 days ago found to be staph resistant to clindamycin, percutaneous drainages failed he'll proceed to operative drainage Vancomycin IV per pharmacokinetic monitoring infectious disease will have oversight to help decide outpatient treatment as the patient does have a sulfa allergy so Bactrim would not be appropriate, will remain on IV vancomycin at this point in time DVT question chronic or acute started on heparin drip VQ scan negative pulmonary emboli. Repeat Doppler study is negative however anticoagulation will be for his atrial fibrillation Hypertension/atrial fibrillation--atrial fibrillation this has been chronic in the past has stopped Coumadin due to epistaxis rate control has been challenging post procedure escalating doses of metoprolol continuing heparin drip for the concern of thromboembolism cardiology has seen recommends in escalating doses of metoprolol and transitional oral Coumadin Hyperlipidemia--reportedly on simvastatin Daughter Alexandra was updated by phone [phone], 07/01 Continued [facility] stay due to: multiple IV medications needed Discharge planning: home
[2017-07-01] MEDS ORDERED: HYDROmorphone INJ 2 MG/ML SYR/VIAL ONE (19:15)
[2017-07-01] MEDS ORDERED: PHENYLEPHRINE HCL INJ 10 MG/ML VIAL ONE (21:10)
[2017-07-01] MEDS ORDERED: MoRPHine SULFATE 2 MG/ML CARP IV PRN (22:00)
[2017-07-01] MEDS ORDERED: OXYCODONE/ACETAMINOPHEN 5-325 TAB PO PRN (22:00)
--- NOTE | 2017-07-01 22:37 | Anesthesiology Progress Note ---
Anesthesia Post Op Note Date & Time Jul 01, 2017 at 22:36 Vital Signs Pain Intensity: 0 Vital Signs Past 12 Hours Date Time Temp Pulse Resp B/P (MAP) Pulse Ox O2 Delivery O2 Flow Rate FiO2 07/01/17 22:32 111 23 93 07/01/17 22:32 105 23 07/01/17 22:31 143/105 07/01/17 22:28 142/90 07/01/17 22:27 116 23 07/01/17 22:27 120 23 95 07/01/17 22:26 145/112 07/01/17 22:21 147/99 07/01/17 22:20 36.8 108 22 147/83 (87) 95 Mask 3 07/01/17 22:17 107 23 94 07/01/17 22:17 108 21 92 07/01/17 22:16 147/83 07/01/17 22:13 108 23 96 07/01/17 22:13 110 23 07/01/17 22:11 125/87 07/01/17 22:08 112 26 95 07/01/17 22:08 101 26 96 07/01/17 22:07 141/84 07/01/17 22:02 135/85 07/01/17 21:59 152/93 07/01/17 21:58 92 23 92 07/01/17 21:58 93 23 95 07/01/17 21:58 36.3 113 14 152/93 94 Mask 10 07/01/17 17:15 36.7 102 20 148/92 (110) 96 Room Air 07/01/17 16:15 Room Air 07/01/17 15:33 36.9 111 18 133/94 (107) 94 Room Air Notes Mental Status: alert / awake / arousable, participated in evaluation Pt Amnestic to Procedure: Yes Nausea / Vomiting: adequately controlled Pain: adequately controlled Airway Patency, RR, SpO2: stable & adequate BP & HR: stable & adequate Hydration State: stable & adequate Anesthetic Complications: no major complications apparent Doing well. VSS at baseline.
[2017-07-01 23:00] VITALS: BP 177/95; PULSE 119; TEMP 37.2; O2SAT 96
[2017-07-01] MEDS: METOPROLOL TARTRATE 25 MG TAB PO SCH (23:23)
[2017-07-01 23:30] VITALS: BP 149/92; PULSE 132; TEMP 37; O2SAT 92
[2017-07-01] MEDS: ARTIFICIAL TEARS OP OINT 3.5 GM TUBE OP SCH (23:59)
[2017-07-02] VITALS (12 sets, daily range): BP systolic 103–157; BP diastolic 70–105; PULSE 93–140; TEMP 36.4–36.8; O2SAT 91–97
[2017-07-02] MEDS: ACETAMINOPHEN IV 650 MG in EMPTY BAG 0 ML IV PRN (01:04)
[2017-07-02] MEDS: NSS + 20MEQ KCL 1000ML 1,000 ML IV SCH ×3 (03:30→22:48)
[2017-07-02 07:26] LABS: PARTIAL THROMBOPLASTIN RATIO 1.2
[2017-07-02 07:49] LABS: CREATININE 1.2 mg/dl (0.60-1.40)
[2017-07-02 08:01] LABS: HEMATOCRIT 41.5 % (42-52); MEAN CELL VOLUME 90.8 fL (80-100); MEAN CORPUSCULAR HEMOGLOBIN 30.2 pg (25-34); MEAN CORPUSCULAR HGB CONC 33.3 g/dl (32-36); MEAN PLATELET VOLUME 9.3 fL (7.4-10.4); PLATELET COUNT 598 K/uL (130-400); RED BLOOD COUNT 4.57 M/uL (4.7-6.1); WHITE BLOOD COUNT 21.44 K/uL (4.8-10.8)
--- NOTE | 2017-07-02 08:48 | Anesthesiology Progress Note ---
Anesthesia Post Op Note Date & Time Jul 02, 2017 at 08:48 Vital Signs Vital Signs Past 12 Hours Date Time Temp Pulse Resp B/P (MAP) Pulse Ox O2 Delivery O2 Flow Rate FiO2 07/02/17 07:05 36.4 138 18 103/70 (81) 96 Room Air 07/02/17 04:00 36.6 123 18 144/99 (114) 95 Room Air 07/02/17 03:01 115 07/02/17 02:08 120 07/02/17 02:00 36.8 140 20 147/96 (113) 93 Room Air 07/02/17 01:00 36.8 127 20 157/105 (122) 91 Room Air 07/02/17 00:00 36.4 123 22 151/94 (113) 91 Room Air 07/01/17 23:45 Room Air 07/01/17 23:30 37.0 132 22 149/92 (111) 92 Room Air 07/01/17 23:00 37.2 119 20 177/95 (122) 96 Oxymask 3.0 07/01/17 23:00 Oxymask 3.0 07/01/17 22:32 111 23 93 07/01/17 22:32 105 23 07/01/17 22:31 143/105 07/01/17 22:28 142/90 07/01/17 22:27 116 23 07/01/17 22:27 120 23 95 07/01/17 22:26 145/112 07/01/17 22:21 147/99 07/01/17 22:20 36.8 108 22 147/83 (87) 95 Mask 3 07/01/17 22:17 107 23 94 07/01/17 22:17 108 21 92 07/01/17 22:16 147/83 07/01/17 22:13 108 23 96 07/01/17 22:13 110 23 07/01/17 22:11 125/87 07/01/17 22:08 112 26 95 07/01/17 22:08 101 26 96 07/01/17 22:07 141/84 07/01/17 22:02 135/85 07/01/17 21:59 152/93 07/01/17 21:58 92 23 92 07/01/17 21:58 93 23 95 07/01/17 21:58 36.3 113 14 152/93 94 Mask 10 Notes Mental Status: alert / awake / arousable, participated in evaluation Pt Amnestic to Procedure: Yes Nausea / Vomiting: adequately controlled Pain: adequately controlled Airway Patency, RR, SpO2: stable & adequate BP & HR: stable & adequate Hydration State: stable & adequate Anesthetic Complications: no major complications apparent
[2017-07-02] MEDS: POLYETHYLENE (MIRALAX) 17 GM PACK PO SCH (08:56)
[2017-07-02] MEDS: SENNA 8.6 MG TAB PO SCH (08:56)
[2017-07-02] MEDS: ACETAMINOPHEN 325 MG TAB PO PRN ×3 (08:59→21:20)
[2017-07-02] MEDS: METOPROLOL TARTRATE 25 MG TAB PO SCH ×2 (08:59→21:10)
--- NOTE | 2017-07-02 08:59 | Progress Note ---
Progress Note Date of Service Jul 02, 2017. Progress Note Doing relatively well this AM - modest pain, but tolerable - no fevers 07/02/17 06:58 07/02/17 06:58 Test 07/01/17 12:39 07/01/17 16:29 07/02/17 06:58 Vancomycin Level Trough 17.2 mcg/ml (SEE COMMENT) Prothrombin Time 12.0 SECONDS (9.0-12.0) Prothromb Time International Ratio 1.1 (0.9-1.1) Red Blood Count 4.57 M/uL (4.7-6.1) Mean Corpuscular Volume 90.8 fL (80-100) Mean Corpuscular Hemoglobin 30.2 pg (25-34) Mean Corpuscular Hemoglobin Concent 33.3 g/dl (32-36) RDW Standard Deviation 48.9 fL (36.4-46.3) RDW Coefficient of Variation 14.7 % (11.5-14.5) Mean Platelet Volume 9.3 fL (7.4-10.4) Nucleated RBC Absolute Count (auto) 0.04 K/uL (0-0) Nucleated Red Blood Cells % 0.2 % Activated Partial Thromboplast Time 31.4 SECONDS (21.0-31.0) Partial Thromboplastin Ratio 1.2 Est Creatinine Clear Calc Drug Dose 84.8 ml/min Estimated GFR () 74.1 Estimated GFR (Non- 64.0 Vital Signs Past 12 Hours Date Time Temp Pulse Resp B/P (MAP) Pulse Ox O2 Delivery O2 Flow Rate FiO2 07/02/17 07:05 36.4 138 18 103/70 (81) 96 Room Air 07/02/17 04:00 36.6 123 18 144/99 (114) 95 Room Air 07/02/17 03:01 115 07/02/17 02:08 120 07/02/17 02:00 36.8 140 20 147/96 (113) 93 Room Air 07/02/17 01:00 36.8 127 20 157/105 (122) 91 Room Air 07/02/17 00:00 36.4 123 22 151/94 (113) 91 Room Air 07/01/17 23:45 Room Air 07/01/17 23:30 37.0 132 22 149/92 (111) 92 Room Air 07/01/17 23:00 37.2 119 20 177/95 (122) 96 Oxymask 3.0 07/01/17 23:00 Oxymask 3.0 07/01/17 22:32 111 23 93 07/01/17 22:32 105 23 07/01/17 22:31 143/105 07/01/17 22:28 142/90 07/01/17 22:27 116 23 07/01/17 22:27 120 23 95 07/01/17 22:26 145/112 07/01/17 22:21 147/99 07/01/17 22:20 36.8 108 22 147/83 (87) 95 Mask 3 07/01/17 22:17 107 23 94 07/01/17 22:17 108 21 92 07/01/17 22:16 147/83 07/01/17 22:13 108 23 96 07/01/17 22:13 110 23 07/01/17 22:11 125/87 07/01/17 22:08 112 26 95 07/01/17 22:08 101 26 96 07/01/17 22:07 141/84 07/01/17 22:02 135/85 07/01/17 21:59 152/93 07/01/17 21:58 92 23 92 07/01/17 21:58 93 23 95 07/01/17 21:58 36.3 113 14 152/93 94 Mask 10 NAD [id number] tachy incisions without erythema - CHARO serosang (minimal output) - non-distended A/P: POD#1 s/p port site hernia repair and drainage of infected pelvic lymphocele - progressing appropriately - hope to see leukocytosis decrease over the next days - clear liquids - ambulate
[2017-07-02] MEDS: DOCUSATE SODIUM 100 MG CAP PO SCH ×2 (09:00→21:09)
[2017-07-02] MEDS ORDERED: OXYCODONE HCL IR 5 MG TAB (IMMEDIATE RELEASE) PO PRN (09:00)
[2017-07-02] MEDS: MULTIVITAMIN TAB PO SCH (09:00)
[2017-07-02] MEDS: ASPIRIN 81 MG ECTAB PO SCH (09:00)
[2017-07-02] MEDS: ASCORBIC ACID 500 MG TAB PO SCH (09:00)
[2017-07-02] MEDS: FAMOTIDINE 20 MG TAB PO SCH ×2 (09:00→21:10)
--- NOTE | 2017-07-02 10:12 | CARDIOLOGY PROGRESS NOTE ---
DATE: 07/02/2017 DATE: 07/02/2017 SUBJECTIVE: Events of past evening noted. He was taken to the OR and underwent surgical drainage of pelvic abscess. Of note, the patient's heart rates have been increased over the night predominantly due to holding beta carlos therapy. This morning he is unaware of elevated heart rate. Denies any chest pain or discomfort. Notes no dizziness or lightheadedness. He tolerated the surgical procedure other than an elevated heart rate relatively well. OBJECTIVE: VITAL SIGNS: Heart rate this morning is 120, blood pressure is 142/90. HEAD, EYES, EARS, NOSE, AND THROAT: Normocephalic, atraumatic. NECK: Thick. There is no distinct jugular venous distention. LUNGS: Reveal mildly diminished breath sounds, but are predominantly clear. CARDIOVASCULAR EXAMINATION: Irregularly irregular and rapid. ABDOMEN: Soft. EXTREMITIES: Reveal free of edema. IMPRESSION: Complex 61-year-old male with chronic atrial fibrillation with elevated ventricular response rates in the hospital being driven by underlying medical issues. Heart rate now up this morning though. Underwent surgical procedure last night and has been off beta carlos since yesterday morning. PLAN: Will give oral dose this morning. There is room to further increase this, begin with 75 mg twice per day. Treat underlying infection, watch closely for signs or symptoms of volume overload given elevated heart rate and large volume IV fluids being given.
--- NOTE | 2017-07-02 12:53 | [facility] Operative Report ---
Operative Report Operative Date Jul 02, 2017. Pre-Operative Diagnosis pelvic lymphoceles; port site hernia Post-Operative Diagnosis pelvic lymphoceles; port site hernia Procedure(s) Performed Exploratory Laparotomy, Drainage Pelvic Abscess, Repair of port site hernia Surgeon Dr. Hudson Acid Extractor Surgeon(s) Dr. Diaz Estimated Blood Loss 400ml Findings large left pelvic lymphocele - significant inflammatory reaction - small bowel within a port site hernia Specimens none per surgeon Drains CHARO; leon Anesthesia Gen Complication(s) None Disposition Recovery Room / PACU (stable) Indications Infected lymphocele - s/p incomplete/unsuccessful percutaneous drainage Description of Procedure Javad Sesay was identified in the preoperative holding area, appropriate informed consents were reviewed and completed, and the patient was transferred to the operating suite. Upon arrival he received appropriate general anesthesia, he was previously given a dose of ceftriaxone on the floor as well as vancomycin. In the operative suite, he was placed in supine position and the bed was slightly flexed to help open his pelvis. A Leon catheter was inserted and a low midline incision was marked and made through the skin. Of note the patient had a previous attempted percutaneous drainage. The drain site essentially in the midline just above the pubic symphysis and there was an open wound (3mm) with a small amount of purulent discharge. We included this site into our mid low midline incision. Immediately upon incising the skin, we encounter a small amount of purulent material within the subcutaneous tissue. We irrigated the wound with bacitracin infused saline and continued dissecting through the subcutaneous fat - which was copious. We identified the rectus sheath in the midline. We incised this and opened it from the pubic symphysis to approximately 4 cm below the umbilicus. Anatomy was somewhat distorted posterior to the rectus was quite abnormal secondary to his recent prostatectomy as well as infection and prior drainage. He was noted to have a rectus sheath hematoma on the left which was drained. He additionally had an inflammatory rind covering all tissues. We encountered some bleeding from the inferior epigastric or branch of it. This was ligated utilizing 0 silk ties. We then dissected further and entered the peritoneum. Of note the peritoneum was previously incised during the prostatectomy and in turn, remaining extraperitoneal would likely be impossible with this approach. As we explored further, I was able to palpate what we believed to be the bladder although his significant perivesical fat made this somewhat challenging to identify on palpation alone. We did irrigate saline into the bladder to of further help us identify and differentiate this from the surrounding tissues. This allowed us to confirm the location of the bladder, and aided our ability to dissect on the left lateral aspect of the bladder towards the pelvic sidewall. We were able to palpate the external iliac vessels on the pelvic side wall. Unfortunately, it was surprisingly challenging to palpate a fluctuant area consistent with a lymphocele. To help further differentiate this I probed several areas suspicious for that lymphocele with a needle and empty syringe, however I was unable to aspirate any purulent material. Utilizing landmarks from the CT scan, we dissected under the pubic arch further and made a small incision and what we suspected might be the lymphocele. This immediately drained a significant amount of purulent material. We irrigated this cavity completely with bacitracin impregnated saline, and we irrigated the surrounding area to ensure that as much pus was removed as possible. I passed a finger into the cavity and felt no loculations. As we inspected this area, I suspect that the previously attempted percutaneous drain did not adequately seat within this cavity. After feeling that this lymphocele was adequately drained and opened, a CHARO drain was positioned within the cavity itself and then passed through the lateral aspect of the skin and sutured in place. We then turned our attention to the right side of the bladder. He had a smaller lymphocele visible on CT on this side. We performed the same procedure , clearing the lateral sidewall of the pelvis. We easily could palpate the external iliac vessels, however it remained very challenging to feel the lymphocele. Of note this side is much smaller than the left side on imaging, and further had improvement with antibiotics alone. We probed numerous areas with the needle without aspirating any pus. After exploring numerous areas for close to 1 hour we aborted any effort to drain any lymphocele on the right side. Before concluding the case, I turned my attention to an incidentally discovered right sided port site hernia. I was able to pass a hand up over the abdominal contents onto the anterior abdominal wall and palpate small bowel bowel protruding into the right-sided lateral port site. This was not easily reduced with simple traction. While palpating the internal aspects, I made a skin incision overlying this port site and dissected through the superficial tissues very carefully. We were able to identify the bowel from the anterior aspect of our incision and while simultaneously palpating the internal aspect of the fascia and working with a combined internal/external approach, we were able to dissect around this loop of bowel and open a small incision in the fascia to allow reduction of the bowel. After reduction, I inspected the bowel and saw no evidence of significant trauma or injury. Bowel appeared pink and healthy. I then proceeded to close our fascial opening with a running 0 Vicryl. The area was palpated from the posterior side as well as the superficial side and no palpable defects remained. I guided omentum down over this area as a further sort of insulation. This skin in this area was closed utilizing lavinia. We then turned our close attention back towards closure of the low midline incision. The rectus sheath was re-composed utilizing [id number] 0 Vicryl stitches. Subcutaneous tissue was reapproximated utilizing an additional 0 Vicryl stitch. I infiltrated the wound with 0.5% Marcaine, and proceeded to close the skin with lavinia. The patient was subsequently extubated and taken to the PACU in stable condition. A Leon catheter and CHARO drain were left in place. I attest to the content of the Intraoperative Record and any orders documented therein. Any exceptions are noted below.
--- NOTE | 2017-07-02 12:57 | Progress Note ---
Subjective Date of Service: Jul 02, 2017. Subjective Pt evaluation today including: conversation w/ patient, physical exam, chart review, lab review pt seen in followup, doing well today, s/p I&D of persistent abscess last pm, also underwent hernia repair. no pain this am, seth drain in place. tolerating abx. no new micro. wbc increased today but suspect post op. no n/v/d. less abd wall erythema. all remaining ros reviewed and are negative. Problem List Medical Problems: (1) Intra-abdominal abscess Status: Acute Objective Vital Signs Date Time Temp Pulse Resp B/P (MAP) Pulse Ox O2 Delivery O2 Flow Rate FiO2 07/02/17 11:55 36.5 96 18 120/82 (95) 96 Room Air 07/02/17 08:15 Room Air 07/02/17 07:05 36.4 138 18 103/70 (81) 96 Room Air 07/02/17 04:00 36.6 123 18 144/99 (114) 95 Room Air 07/02/17 03:01 115 07/02/17 02:08 120 07/02/17 02:00 36.8 140 20 147/96 (113) 93 Room Air 07/02/17 01:00 36.8 127 20 157/105 (122) 91 Room Air 07/02/17 00:00 36.4 123 22 151/94 (113) 91 Room Air 07/01/17 23:45 Room Air 07/01/17 23:30 37.0 132 22 149/92 (111) 92 Room Air 07/01/17 23:00 37.2 119 20 177/95 (122) 96 Oxymask 3.0 07/01/17 23:00 Oxymask 3.0 07/01/17 22:32 111 23 93 07/01/17 22:32 105 23 07/01/17 22:31 143/105 07/01/17 22:28 142/90 07/01/17 22:27 116 23 07/01/17 22:27 120 23 95 07/01/17 22:26 145/112 07/01/17 22:21 147/99 07/01/17 22:20 36.8 108 22 147/83 (87) 95 Mask 3 07/01/17 22:17 107 23 94 07/01/17 22:17 108 21 92 07/01/17 22:16 147/83 07/01/17 22:13 108 23 96 07/01/17 22:13 110 23 07/01/17 22:11 125/87 07/01/17 22:08 112 26 95 07/01/17 22:08 101 26 96 07/01/17 22:07 141/84 07/01/17 22:02 135/85 07/01/17 21:59 152/93 07/01/17 21:58 92 23 92 07/01/17 21:58 93 23 95 07/01/17 21:58 36.3 113 14 152/93 94 Mask 10 07/01/17 17:15 36.7 102 20 148/92 (110) 96 Room Air 07/01/17 16:15 Room Air 07/01/17 15:33 36.9 111 18 133/94 (107) 94 Room Air Physical Exam General Appearance: WD/WN, no apparent distress Eyes: normal inspection, PERRL, EOMI Neck: supple Respiratory/Chest: lungs clear, normal breath sounds, no respiratory distress Cardiovascular: regular rate, rhythm, no edema Abdomen: non tender, soft Neurologic/Psychiatric: alert, oriented x 3 Skin: normal color Comments: abd wall less erythema, non tender. dressing c/d/i, seth drain in place with serous fluid. nontender no warmth no induraiton Laboratory Results Item Value Date Time Gram Stain - Final Resulted 06/28/17 1540 Abscess Pelvic Blood Culture - Final Complete 06/25/17 1930 Blood NO GROWTH Blood Culture - Final Complete 06/25/17 1914 Blood NO GROWTH Last 24 Hours Test 07/01/17 16:29 07/02/17 06:58 Prothrombin Time 12.0 SECONDS Prothromb Time International Ratio 1.1 Activated Partial Thromboplast Time 34.0 SECONDS 31.4 SECONDS Partial Thromboplastin Ratio 1.3 1.2 White Blood Count 21.44 K/uL Red Blood Count 4.57 M/uL Hemoglobin 13.8 g/dL Hematocrit 41.5 % Mean Corpuscular Volume 90.8 fL Mean Corpuscular Hemoglobin 30.2 pg Mean Corpuscular Hemoglobin Concent 33.3 g/dl RDW Standard Deviation 48.9 fL RDW Coefficient of Variation 14.7 % Platelet Count 598 K/uL Mean Platelet Volume 9.3 fL Nucleated RBC Absolute Count (auto) 0.04 K/uL Nucleated Red Blood Cells % 0.2 % Creatinine 1.20 mg/dl Est Creatinine Clear Calc Drug Dose 84.8 ml/min Estimated GFR () 74.1 Estimated GFR (Non- 64.0 Assessment and Plan (1) Intra-abdominal abscess Assessment & Plan: pt tolerating abx. blood cultures final, discussed abx options, he would like to proceed with home IV abx, will continue with ctx 2g daily. will need picc line, duration 14 more days. can follow with ID post d/c. will need weekly cbc, cmp while on therapy. ok for d/c when otherwise stable. If unable to undergo therapy with IV abx, would suggest po keflex 500mg po tid as an alternative therapy. (2) Leukocytosis Continued [facility] stay due to: multiple IV medications needed Discharge planning: home
[2017-07-02] MEDS: CEFTRIAXONE SOD INJ 2,000 MG in DEXTROSE 5% 50ML 50 ML IV SCH (13:44)
--- NOTE | 2017-07-02 14:59 | Progress Note ---
Subjective Date of Service: Jul 02, 2017. Subjective Patient is somewhat uncomfortable but overall doing well he's had no bowel movements with some flatus he has abdominal pain is no shortness of breath. He is tachycardic because he did not receive his beta carlos last night will try to initiated today with a small sip of water Problem List Medical Problems: (1) Intra-abdominal abscess Status: Acute Review of Systems Constitutional: + weakness, No fever, No chills Respiratory: No cough, No shortness of breath, No dyspnea on exertion Cardiac: No chest pain, No edema Abdomen: + pain, + constipation, No nausea, No vomiting, No diarrhea Male : No dysuria, No urinary frequency Psychiatric: No depression symptoms, No anhedonism Objective Vital Signs Date Time Temp Pulse Resp B/P (MAP) Pulse Ox O2 Delivery O2 Flow Rate FiO2 07/02/17 11:55 36.5 96 18 120/82 (95) 96 Room Air 07/02/17 08:15 Room Air 07/02/17 07:05 36.4 138 18 103/70 (81) 96 Room Air 07/02/17 04:00 36.6 123 18 144/99 (114) 95 Room Air 07/02/17 03:01 115 07/02/17 02:08 120 07/02/17 02:00 36.8 140 20 147/96 (113) 93 Room Air 07/02/17 01:00 36.8 127 20 157/105 (122) 91 Room Air 07/02/17 00:00 36.4 123 22 151/94 (113) 91 Room Air 07/01/17 23:45 Room Air 07/01/17 23:30 37.0 132 22 149/92 (111) 92 Room Air 07/01/17 23:00 37.2 119 20 177/95 (122) 96 Oxymask 3.0 07/01/17 23:00 Oxymask 3.0 07/01/17 22:32 111 23 93 07/01/17 22:32 105 23 07/01/17 22:31 143/105 07/01/17 22:28 142/90 07/01/17 22:27 116 23 07/01/17 22:27 120 23 95 07/01/17 22:26 145/112 07/01/17 22:21 147/99 07/01/17 22:20 36.8 108 22 147/83 (87) 95 Mask 3 07/01/17 22:17 107 23 94 07/01/17 22:17 108 21 92 07/01/17 22:16 147/83 07/01/17 22:13 108 23 96 07/01/17 22:13 110 23 07/01/17 22:11 125/87 07/01/17 22:08 112 26 95 07/01/17 22:08 101 26 96 07/01/17 22:07 141/84 07/01/17 22:02 135/85 07/01/17 21:59 152/93 07/01/17 21:58 92 23 92 07/01/17 21:58 93 23 95 07/01/17 21:58 36.3 113 14 152/93 94 Mask 10 07/01/17 17:15 36.7 102 20 148/92 (110) 96 Room Air 07/01/17 16:15 Room Air 07/01/17 15:33 36.9 111 18 133/94 (107) 94 Room Air Physical Exam General Appearance: + mild distress, + obese Neck: supple, no JVD Respiratory/Chest: no respiratory distress, + decreased breath sounds Cardiovascular: + tachycardia, + irregularly irregular Abdomen: normal bowel sounds, soft, + distended, + guarding, + tenderness Extremities: + pedal edema, + swelling Neurologic/Psychiatric: alert, oriented x 3 Laboratory Results Last 24 Hours Test 07/01/17 16:29 07/02/17 06:58 Prothrombin Time 12.0 SECONDS Prothromb Time International Ratio 1.1 Activated Partial Thromboplast Time 34.0 SECONDS 31.4 SECONDS Partial Thromboplastin Ratio 1.3 1.2 White Blood Count 21.44 K/uL Red Blood Count 4.57 M/uL Hemoglobin 13.8 g/dL Hematocrit 41.5 % Mean Corpuscular Volume 90.8 fL Mean Corpuscular Hemoglobin 30.2 pg Mean Corpuscular Hemoglobin Concent 33.3 g/dl RDW Standard Deviation 48.9 fL RDW Coefficient of Variation 14.7 % Platelet Count 598 K/uL Mean Platelet Volume 9.3 fL Nucleated RBC Absolute Count (auto) 0.04 K/uL Nucleated Red Blood Cells % 0.2 % Creatinine 1.20 mg/dl Est Creatinine Clear Calc Drug Dose 84.8 ml/min Estimated GFR () 74.1 Estimated GFR (Non- 64.0 Assessment and Plan Intra-abdominal/pelvic abscess with status post drainage consistent with abscess, post prostatectomy 18 days ago found to be staph resistant to clindamycin, percutaneous drainages failed, we proceeded to the OR for incision and drainage on the evening of 07/01 Ceftriaxone IV per infectious disease, recommendations 14 day course, may consider placing ultrasound-guided PERIPHERAL IV, WHICH CAN ACCOMPLISH THIS AT HOME DVT question chronic or acute started on heparin drip VQ scan negative pulmonary emboli. Repeat Doppler study is negative however anticoagulation will be for his atrial fibrillation Hypertension/atrial fibrillation--atrial fibrillation this has been chronic in the past has stopped Coumadin due to epistaxis rate control has been challenging post procedure escalating doses of metoprolol continuing heparin drip for the concern of thromboembolism cardiology has seen recommends in escalating doses of metoprolol and transitional oral Coumadin once operative risk is past Hyperlipidemia--reportedly on simvastatin Daughter Alexandra was updated by phone [phone], 07/01 Continued [facility] stay due to: multiple IV medications needed Discharge planning: home
[2017-07-02] MEDS: ARTIFICIAL TEARS OP OINT 3.5 GM TUBE OP SCH (21:09)
[2017-07-03 06:33] LABS: HEMATOCRIT 34.1 % (42-52); MEAN CELL VOLUME 91.2 fL (80-100); MEAN CORPUSCULAR HEMOGLOBIN 30.7 pg (25-34); MEAN CORPUSCULAR HGB CONC 33.7 g/dl (32-36); MEAN PLATELET VOLUME 8.8 fL (7.4-10.4); PLATELET COUNT 423 K/uL (130-400); RED BLOOD COUNT 3.74 M/uL (4.7-6.1); WHITE BLOOD COUNT 12.34 K/uL (4.8-10.8)
[2017-07-03 07:22] VITALS: BP 126/84; PULSE 99; TEMP 36.7; O2SAT 94
[2017-07-03 08:00] VITALS: O2SAT 94
[2017-07-03] MEDS: POLYETHYLENE (MIRALAX) 17 GM PACK PO SCH (09:00)
[2017-07-03] MEDS: MULTIVITAMIN TAB PO SCH (09:00)
[2017-07-03] MEDS: SENNA 8.6 MG TAB PO SCH (09:00)
[2017-07-03] MEDS: ASPIRIN 81 MG ECTAB PO SCH (09:13)
[2017-07-03] MEDS: DOCUSATE SODIUM 100 MG CAP PO SCH ×2 (09:13→21:00)
[2017-07-03] MEDS: METOPROLOL TARTRATE 25 MG TAB PO SCH ×2 (09:13→22:08)
[2017-07-03] MEDS: ASCORBIC ACID 500 MG TAB PO SCH (09:14)
[2017-07-03] MEDS: FAMOTIDINE 20 MG TAB PO SCH ×2 (09:18→22:08)
[2017-07-03] MEDS: NSS + 20MEQ KCL 1000ML 1,000 ML IV SCH (09:33)
--- NOTE | 2017-07-03 09:36 | Progress Note ---
Progress Note Date of Service Jul 03, 2017. Progress Note Postoperative day #2 from exploratory lap drainage of infected lymphocele port hernia repair. Patient is afebrile vital signs are stable Patient says he feels well He's been up ambulating He's had several bowel movements His incisions are clean and dry Abdomen is soft positive bowel sounds Extremities without calf pain or tenderness Lab values White count down to 12 Hematocrit 34 which is stable Creatinine 1.2 Urine output is good CHARO drainage minimal Assessment postop day due from drainage of an infected lymphocele and hernia repair Patient doing very well Will increase his diet today Continue on his IV antibiotics
--- NOTE | 2017-07-03 11:25 | Cardiology Follow-Up ---
Subjective Subjective Date of Service: Jul 03, 2017. Pt evaluation today including: conversation w/ patient, physical exam, chart review, lab review, review of studies, review of inpatient medication list Additional Details: Pt seen and examined, states that he feels fine and is anxious to go home. Denies cp, sob, palpitations, lightheadedness or dizziness. Problem List Medical Problems: (1) Intra-abdominal abscess Status: Acute Review of Systems Constitutional: + weakness, No fever, No chills Respiratory: No see HPI, No cough, No sputum, No wheezing, No shortness of breath, No dyspnea on exertion, No dyspnea at rest, No hemoptysis, No problem reported Cardiac: No see HPI, No chest pain, No orthopnea, No PND, No edema, No claudication, No palpitations, No problem reported Abdomen: + pain, + constipation, No nausea, No vomiting, No diarrhea Musculoskeletal: No joint pain, No muscle pain, No swelling Male : No dysuria, No urinary frequency Psychiatric: No depression symptoms, No anhedonism Heme: No abnormal bleeding/bruising Skin: No rash Objective Vital Signs Last Vital Signs Documentation Date Time Temp Pulse Resp B/P (MAP) Pulse Ox O2 Delivery O2 Flow Rate FiO2 07/03/17 08:00 94 Room Air 07/03/17 07:22 36.7 99 16 126/84 (98) 07/01/17 23:00 3.0 Physical Exam: General Appearance: WD/WN, no apparent distress, + obese Eyes: bilateral eyes normal inspection, bilateral eyes PERRL, bilateral eyes EOMI ENT: normal ENT inspection, hearing grossly normal, pharynx normal Neck: supple, no adenopathy, thyroid normal, no JVD, no carotid bruits, trachea midline Respiratory/Chest: chest non-tender, lungs clear, normal breath sounds, no respiratory distress, no accessory muscle use, + decreased breath sounds Cardiovascular: no edema, no JVD, no murmur, + tachycardia, + irregularly irregular Abdomen: normal bowel sounds, non tender, soft, no organomegaly, no pulsatile mass, + distended, + guarding, + tenderness Extremities: normal inspection, no pedal edema, no calf tenderness, + pedal edema, + swelling Neurologic/Psychiatric: mobile solutions architect II-XII nml as tested, no motor/sensory deficits, alert, normal mood/affect, oriented x 3 Skin: normal color, warm/dry, no rash Lymphatic: no adenopathy Assessment and Plan 1. atrial fibrillation rates somewhat improved now around 100 bpm not ideal but rapid ventricular response likely secondary to infection will hold off uptitratration at this point for concern of inducing bradycardia cont metoprolol 75 mg bid for now will need close follow up with Dr. Fuchs ([facility]) as outpatient for further titration heparin held postoperatively, would recommend restarting now if bleeding risk acceptable from surgery would also start coumadin today Continued [facility] stay due to: multiple IV medications needed Discharge planning: home
--- NOTE | 2017-07-03 11:29 | Progress Note ---
Subjective Date of Service: Jul 03, 2017. Subjective Pt evaluation today including: conversation w/ patient, physical exam, chart review, lab review, review of studies, conversation w/ production consultant, review of inpatient medication list Include, sitting up in bed to be drainages going on with some bloody drainage No fever and chill, Problem List Medical Problems: (1) Intra-abdominal abscess Status: Acute Review of Systems Constitutional: No fever, No chills, No sweats, No weight loss, No weakness, No fatigue, No problem reported Eyes: No worsening of vision, No eye pain, No redness, No discharge, No diplopia ENT: No hearing loss, No unusual epistaxis, No nasal symptoms, No sore throat, No tinnitus, No dental problems, No trouble swallowing Respiratory: No cough, No sputum, No wheezing, No shortness of breath, No dyspnea on exertion, No dyspnea at rest, No hemoptysis Cardiac: No chest pain, No orthopnea, No PND, No edema, No claudication, No palpitations Abdomen: No pain, No nausea, No vomiting, No diarrhea, No constipation Musculoskeletal: No joint pain, No muscle pain, No swelling, No calf pain Male : No dysuria, No urinary frequency, No incontinence, No nocturia more than once/night, No slowing stream, No hematuria Neurologic: No memory loss, No paralysis, No weakness, No numbness/tingling, No vertigo, No balance problems Psychiatric: No depression symptoms, No anhedonism, No anxiety, No insomnia, No substance abuse Heme: No abnormal bleeding/bruising, No clotting problems, No swollen lymph nodes, No night sweats Endo: No fatigue, No excessive thirst, No excessive urination Skin: No rash, No itch, No new/changing skin lesions, No color change, No bleeding Objective Vital Signs Date Time Temp Pulse Resp B/P (MAP) Pulse Ox O2 Delivery O2 Flow Rate FiO2 07/03/17 08:00 94 Room Air 07/03/17 07:22 36.7 99 16 126/84 (98) 94 Room Air 07/02/17 23:42 36.4 93 17 133/90 (104) 94 Room Air 07/02/17 23:33 Room Air 07/02/17 21:03 122 116/76 (89) 96 Room Air 07/02/17 17:30 96 07/02/17 17:00 Room Air 07/02/17 15:11 36.4 97 18 127/84 (98) 97 Room Air 07/02/17 11:55 36.5 96 18 120/82 (95) 96 Room Air Physical Exam General Appearance: WD/WN, no apparent distress, + obese Eyes: normal inspection, PERRL, EOMI, sclerae normal ENT: normal ENT inspection, hearing grossly normal, pharynx normal Neck: supple, no adenopathy, thyroid normal, no JVD, no carotid bruits, trachea midline Respiratory/Chest: chest non-tender, normal breath sounds, no respiratory distress, no accessory muscle use, + decreased breath sounds Cardiovascular: regular rate, rhythm, no edema, no gallop, no JVD, no murmur Abdomen: normal bowel sounds, non tender, soft, no organomegaly, no pulsatile mass, + pertinent finding (mid abdomen where he any scar, left lower abdomen has CHARO drainages going on) Extremities: normal range of motion, non-tender, normal inspection, no pedal edema, no calf tenderness, normal capillary refill, pelvis stable Neurologic/Psychiatric: seismograph helper II-XII nml as tested, no motor/sensory deficits, alert, normal mood/affect, oriented x 3 Skin: normal color, warm/dry, no rash Lymphatic: no adenopathy Laboratory Results Last 24 Hours Test 07/03/17 06:02 White Blood Count 12.34 K/uL Red Blood Count 3.74 M/uL Hemoglobin 11.5 g/dL Hematocrit 34.1 % Mean Corpuscular Volume 91.2 fL Mean Corpuscular Hemoglobin 30.7 pg Mean Corpuscular Hemoglobin Concent 33.7 g/dl RDW Standard Deviation 50.8 fL RDW Coefficient of Variation 15.1 % Platelet Count 423 K/uL Mean Platelet Volume 8.8 fL Nucleated RBC Absolute Count (auto) 0.02 K/uL Nucleated Red Blood Cells % 0.2 % Assessment and Plan 61-year-old admitted on 06/25/2017 Intra-abdominal/pelvic abscess Intra-abdominal/pelvic abscess with status post drainage consistent with abscess, follow-up CHARO drainage going on post prostatectomy 18 days ago found to be staph resistant to clindamycin, percutaneous drainages failed, OR for incision and drainage on the evening of 07/01 Postop day 2 Ceftriaxone IV per infectious disease, recommendations 14 day course, may consider placing ultrasound-guided PERIPHERAL IV, WHICH CAN ACCOMPLISH THIS AT HOME Discussed risk and benefit of PICC, consent signed , Continue current care No acute DVT , DVT question chronic or acute started on heparin drip VQ scan negative pulmonary emboli. Repeat Doppler study is negative however anticoagulation will be for his atrial fibrillation Hypertension/atrial fibrillation atrial fibrillation this has been chronic in the past has stopped Coumadin due to epistaxis rate control Talked to , talked to patient's php consultant, I heard the patient php consultant is planning to start Xarelto Hyperlipidemia--reportedly on simvastatin Per chart Daughter Alexandra was updated by hospitalist team by phone [phone], 07/01 Planning home with home healthcare IV infusion possible tomorrow Per case hardener pt has 100% coverage for home IV antibiotics. Will need script for medication and lab work. Continued [facility] stay due to: multiple IV medications needed Discharge planning: home
--- NOTE | 2017-07-03 11:39 | Cardiology Follow-Up ---
Subjective Subjective Date of Service: Jul 03, 2017. Problem List Medical Problems: (1) Intra-abdominal abscess Status: Acute Review of Systems Constitutional: No fever, No chills, No sweats, No weight loss, No weakness, No fatigue, No problem reported Eyes: No worsening of vision, No eye pain, No redness, No discharge, No diplopia ENT: No hearing loss, No unusual epistaxis, No nasal symptoms, No sore throat, No tinnitus, No dental problems, No trouble swallowing Respiratory: No cough, No sputum, No wheezing, No shortness of breath, No dyspnea on exertion, No dyspnea at rest, No hemoptysis Cardiac: No chest pain, No orthopnea, No PND, No edema, No claudication, No palpitations Abdomen: No pain, No nausea, No vomiting, No diarrhea, No constipation Musculoskeletal: No joint pain, No muscle pain, No swelling, No calf pain Male : No dysuria, No urinary frequency, No incontinence, No nocturia more than once/night, No slowing stream, No hematuria Neurologic: No memory loss, No paralysis, No weakness, No numbness/tingling, No vertigo, No balance problems Psychiatric: No depression symptoms, No anhedonism, No anxiety, No insomnia, No substance abuse Heme: No abnormal bleeding/bruising, No clotting problems, No swollen lymph nodes, No night sweats Endo: No fatigue, No excessive thirst, No excessive urination Skin: No rash, No itch, No new/changing skin lesions, No color change, No bleeding Objective Vital Signs Last Vital Signs Documentation Date Time Temp Pulse Resp B/P (MAP) Pulse Ox O2 Delivery O2 Flow Rate FiO2 07/03/17 08:00 94 Room Air 07/03/17 07:22 36.7 99 16 126/84 (98) 07/01/17 23:00 3.0 Physical Exam: General Appearance: WD/WN, no apparent distress, + obese Eyes: bilateral eyes normal inspection, bilateral eyes PERRL, bilateral eyes EOMI ENT: normal ENT inspection, hearing grossly normal, pharynx normal Neck: supple, no adenopathy, thyroid normal, no JVD, no carotid bruits, trachea midline Respiratory/Chest: chest non-tender, normal breath sounds, no respiratory distress, no accessory muscle use, + decreased breath sounds Cardiovascular: regular rate, rhythm, no edema, no gallop, no JVD, no murmur Abdomen: normal bowel sounds, non tender, soft, no organomegaly, no pulsatile mass, + pertinent finding (mid abdomen where he any scar, left lower abdomen has CHARO drainages going on) Extremities: normal range of motion, non-tender, normal inspection, no pedal edema, no calf tenderness, normal capillary refill, pelvis stable Neurologic/Psychiatric: 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 atrial fibrillation rates somewhat improved now around 100 bpm not ideal but rapid ventricular response likely secondary to infection will hold off uptitratration at this point for concern of inducing bradycardia cont metoprolol 75 mg bid for now will need close follow up with Dr. Fuchs ([facility]) as outpatient for further titration spoke with Dr. Pagan, no contraindication to heparin from surgical standpoint, will restart will also start coumadin today could also use NOAC, however, given perioperative period would be concerned with bleeding risk if patient prefers would only recommend Pradaxa given that reversal agent is commercially available Continued [facility] stay due to: multiple IV medications needed Discharge planning: home
[2017-07-03 12:23] LABS: INR 1.2 (0.9-1.1); PARTIAL THROMBOPLASTIN RATIO 1.3; PROTHROMBIN TIME (PATIENT) 12.6 SECONDS (9.0-12.0)
[2017-07-03 12:33] LABS: HEMATOCRIT 35.4 % (42-52); MEAN CELL VOLUME 92.2 fL (80-100); MEAN CORPUSCULAR HEMOGLOBIN 29.9 pg (25-34); MEAN CORPUSCULAR HGB CONC 32.5 g/dl (32-36); MEAN PLATELET VOLUME 9.2 fL (7.4-10.4); PLATELET COUNT 457 K/uL (130-400); RED BLOOD COUNT 3.84 M/uL (4.7-6.1); WHITE BLOOD COUNT 14.05 K/uL (4.8-10.8)
[2017-07-03 12:35] LABS: BASO % 0.4 %; BASO ABS # 0.06 K/uL (0-0.2); COMPLETE YES; EOS % 2.2 %; LYMPH % 9.3 %; LYMPH ABS # 1.31 K/uL (1.2-3.4); MONO % 6.6 %; NEUT % 77.5 %; PLT ESTIMATE INCREASED; POLYCHROMASIA 1+
[2017-07-03] MEDS: HEPARIN 25,000 UNIT/500ML D5W 500 ML IV PRN ×4 (12:51→23:17)
[2017-07-03] MEDS: CEFTRIAXONE SOD INJ 2,000 MG in DEXTROSE 5% 50ML 50 ML IV SCH (15:01)
[2017-07-03 15:33] VITALS: BP 137/85; PULSE 103; TEMP 36.8; O2SAT 95
[2017-07-03] MEDS ORDERED: WARFARIN SOD 5 MG TAB PO SCH (16:00)
[2017-07-03 19:56] LABS: PARTIAL THROMBOPLASTIN RATIO 2.5
[2017-07-03 22:04] VITALS: BP 136/88; PULSE 118
[2017-07-03] MEDS: ARTIFICIAL TEARS OP OINT 3.5 GM TUBE OP SCH (22:07)
[2017-07-03 23:00] VITALS: BP 144/82; PULSE 101; TEMP 36.6; O2SAT 95
[2017-07-04] MEDS: HEPARIN 25,000 UNIT/500ML D5W 500 ML IV PRN ×2 (00:27→07:00)
[2017-07-04 06:46] LABS: PARTIAL THROMBOPLASTIN RATIO 2.6
[2017-07-04 07:14] LABS: CREATININE 0.83 mg/dl (0.60-1.40)
[2017-07-04 07:15] LABS: BUN/CREATININE RATIO 11.9 (10-20); CALCIUM 8.7 mg/dl (8.5-10.1); MAGNESIUM 2.4 mg/dl (1.8-2.4); POTASSIUM 4.2 mmol/L (3.5-5.1)
[2017-07-04 07:32] VITALS: BP 134/75; PULSE 107; TEMP 36.9; O2SAT 92
[2017-07-04] MEDS: METOPROLOL TARTRATE 25 MG TAB PO SCH (08:30)
[2017-07-04] MEDS: DOCUSATE SODIUM 100 MG CAP PO SCH (08:31)
[2017-07-04] MEDS: ASCORBIC ACID 500 MG TAB PO SCH (08:32)
[2017-07-04] MEDS: MULTIVITAMIN TAB PO SCH (08:32)
[2017-07-04] MEDS: FAMOTIDINE 20 MG TAB PO SCH (08:32)
[2017-07-04] MEDS: POLYETHYLENE (MIRALAX) 17 GM PACK PO SCH (08:33)
[2017-07-04] MEDS: SENNA 8.6 MG TAB PO SCH (08:33)
[2017-07-04] MEDS: ASPIRIN 81 MG ECTAB PO SCH (09:34)
[2017-07-04] MEDS ORDERED: OXYC-57 PO (10:33)
[2017-07-04] MEDS ORDERED: DOCU-94 PO (10:33)
--- NOTE | 2017-07-04 10:48 | Progress Note ---
Progress Note Date of Service Jul 04, 2017. Progress Note Postop day 2 from drainage of the infected lymphocele and port hernia repair Patient is afebrile vital signs are stable He says he feels well Ambulating in the hein without difficulty Tolerating a regular diet Has been having bowel movements Voiding without problem White count is 14 his electrolytes are normal Physical exam Incisions clean and dry CHARO drain with minimal drainage-removed Abdomen soft positive bowel sounds Extremities without calf pain or tenderness Assessment postop day 2 from drainage of an infected lymphocele and hernia repair Urologic perspective patient is stable for discharge Infectious disease once and to stay on 2 weeks of antibiotic he does have a port in already Cardiology managing his A. fib I spoke with the hospitalist managing the patient and told him that he was stable from our perspective to go home but he would need to have his IV antibiotics arranged The hospitalist that he would take care of that Given prescriptions for Percocet and Colace
--- NOTE | 2017-07-04 11:39 | Cardiology Follow-Up ---
Subjective Subjective Date of Service: Jul 04, 2017. Pt evaluation today including: conversation w/ patient, physical exam, chart review, lab review, review of studies, review of inpatient medication list Additional Details: Pt seen and examined, oob walking in room, without complaint. Denies cp, sob, palpitations, lightheadedness or dizziness. Problem List Medical Problems: (1) Intra-abdominal abscess Status: Acute Review of Systems Constitutional: No fever, No chills, No sweats, No weight loss, No weakness, No fatigue, No problem reported Eyes: No worsening of vision, No eye pain, No redness, No discharge, No diplopia ENT: No hearing loss, No unusual epistaxis, No nasal symptoms, No sore throat, No tinnitus, No dental problems, No trouble swallowing Respiratory: No cough, No sputum, No wheezing, No shortness of breath, No dyspnea on exertion, No dyspnea at rest, No hemoptysis Cardiac: No chest pain, No orthopnea, No PND, No edema, No claudication, No palpitations Abdomen: No pain, No nausea, No vomiting, No diarrhea, No constipation Musculoskeletal: No joint pain, No muscle pain, No swelling, No calf pain Male : No dysuria, No urinary frequency, No incontinence, No nocturia more than once/night, No slowing stream, No hematuria Neurologic: No memory loss, No paralysis, No weakness, No numbness/tingling, No vertigo, No balance problems Psychiatric: No depression symptoms, No anhedonism, No anxiety, No insomnia, No substance abuse Heme: No abnormal bleeding/bruising, No clotting problems, No swollen lymph nodes, No night sweats Endo: No fatigue, No excessive thirst, No excessive urination Skin: No rash, No itch, No new/changing skin lesions, No color change, No bleeding Objective Vital Signs Last Vital Signs Documentation Date Time Temp Pulse Resp B/P (MAP) Pulse Ox O2 Delivery O2 Flow Rate FiO2 07/04/17 07:32 36.9 107 16 134/75 (94) 92 Room Air 07/01/17 23:00 3.0 Physical Exam: General Appearance: WD/WN, no apparent distress, + obese Eyes: bilateral eyes normal inspection, bilateral eyes PERRL, bilateral eyes EOMI ENT: normal ENT inspection, hearing grossly normal, pharynx normal Neck: supple, no adenopathy, thyroid normal, no JVD, no carotid bruits, trachea midline Respiratory/Chest: chest non-tender, normal breath sounds, no respiratory distress, no accessory muscle use, + decreased breath sounds Cardiovascular: regular rate, rhythm, no edema, no gallop, no JVD, no murmur Abdomen: normal bowel sounds, non tender, soft, no organomegaly, no pulsatile mass, + pertinent finding (mid abdomen where he any scar, left lower abdomen has CHARO drainages going on) Extremities: normal range of motion, non-tender, normal inspection, no pedal edema, no calf tenderness, normal capillary refill, pelvis stable 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 atrial fibrillation rates remain around 100 bpm not ideal but rapid ventricular response likely secondary to infection will hold off uptitratration at this point for concern of inducing bradycardia cont metoprolol 75 mg bid for now will need close follow up with Dr. Fuchs ([facility]) as outpatient for further titration pt tolerating heparin and coumadin well will need lovenox bridge to therapeutic INR given that he has remained in sinus pt ok with lovenox, states that his sister in law is a home health aid and that his 2 children are pharmacist, all able to help with injections could also use NOAC, however, given perioperative period would be concerned with bleeding risk ok to d/c to home from cardiac standpoint will need referral to [place] coumad[facility] clinic and f/u with Dr. Fuchs in 3-4 weeks Continued [facility] stay due to: multiple IV medications needed Discharge planning: home
[2017-07-04] MEDS ORDERED: CMD5 PO (13:16)
[2017-07-04] MEDS ORDERED: CEFT1INJ57 IV (13:16)
[2017-07-04] MEDS ORDERED: ENOX40IN SQ (13:16)
[2017-07-04] MEDS ORDERED: LPR25 PO (13:16)
--- NOTE | 2017-07-04 13:17 | Discharge Instructions ---
Discharge Instructions Date of Service Jul 04, 2017. Admission Reason for Admission: Intra-Abdominal Abscess, Prostate Cancer Discharge Discharge Diagnosis / Problem: Intra-abdominal/pelvic abscess Discharge Goals Goal(s): Decrease discomfort, Improve function, Increase independence, Improve disease control, Improve nutritional status, Learn about illness, Diagnostic testing, Therapeutic intervention, Prevent Disease Progression, Specific goals Activity Recommendations Activity Limitations: resume your previous activity . Instructions / Follow-Up Instructions / Follow-Up you have Intra-abdominal/pelvic abscess status post drainage you need to continue Ceftriaxone IV per infectious disease for 14 day course you need to be seen by infectiosus disease in 7-10 days, RN please give DR. Fuchs office phone for patient to call Need to have Coumadin level checked in 2 days, and your primary care physician to adjust Coumadin dose, you are on Lovenox bridging for the Coumadin Lovenox will be 2 time a day, it need to be until PT/INR level more than 2, after INR more than 2, Lovenox will be stopped, Rx of INR is given The first dose of subcutaneous Lovenox will be given in hospital, the scond dose can be given self or your family at midnight tonight, tomorrow dose of Lovenox you can d o 2 dose a day with Lovenox sq at 9 AM and then 9 PM, You need to have labs of CBC CMP check every 1 week when you are on IV Rocephin infusion, prescription of the lab is given Follow-up urologist Ever Pagan as instructed follow up cardiology as instructed Audiology recommend to restart Coumadin clinic to monitor your Coumadin level, you need to talk this with your family doctor - you need to follow up with your primary care physician in 1 week, - take medication as instructed, never overdose or any misuse, or take with alcohol, because misuse of medicine may cause organ damage or , call your primary care physician if have questions of medicaitons. - call your primary care physician OR go to local emergency room if has any fever/chill, chest pain, shortness of breathing, nausea/vomiting/abdominal pain , facial droop/slurry speech/local weakness, or if has any questions. - fall precaution - diet as instructed - you need to follow up with your subspecialist - you should understand that it is important to follow up the above instruction , and "not following the above instruction" may cause delayed or missed care of your medical conditions which may cause permanent organ damage and even . Current Hospital Diet Patient's current hospital diet: Regular Diet Discharge Diet Recommended Diet: AHA Diet (Heart Healthy) Procedures Procedures Performed: Exploratory Laparotomy, Drainage Pelvic Abscess, Repair of port site hernia Pending Studies Studies pending at discharge: no Laboratory Results Lipid Panel Test 06/14/17 09:45 Range/Units Triglycerides Level 129 0-150 mg/dl Cholesterol Level 149 0-200 mg/dl HDL Cholesterol 41 mg/dl Cholesterol/HDL Ratio 3.6 LDL Cholesterol, Calculated 82 mg/dl Medical Emergencies . Who to Call and When: Medical Emergencies: If at any time you feel your situation is an emergency, please call 911 immediately. . Non-Emergent Contact Non-Emergency issues call your: Primary Care Provider, Genetic Coordinator, Urologist , Specialist (ID) Call Non-Emergent contact if: you have a fever . . "Provider Documentation" section prepared by Butch Henson. . VTE Core Measure Inpt VTE Proph given/why not?: Enoxaparin (Lovenox)SQ, SCD's (if CTA of chest was negative.)
[2017-07-04] MEDS ORDERED: ENOXAPARIN 1 MG/KG SQ SCH (13:30)
[2017-07-04] MEDS: CEFTRIAXONE SOD INJ 2,000 MG in DEXTROSE 5% 50ML 50 ML IV SCH (13:33)
[2017-07-04 13:41] VITALS: BP 134/75; PULSE 107; TEMP 36.9; O2SAT 92
[2017-07-04] MEDS ORDERED: ENOXAPARIN 150 MG/1ML SYR SQ SCH (13:45)
--- NOTE | 2017-07-04 13:48 | Discharge Summary ---
Discharge Summary Date of Service Jul 04, 2017. Discharge Summary Admission Date: Jun 25, 2017 at 21:16 Discharge Date: Jul 04, 2017 Discharge Disposition: Home with services Principal Diagnosis: Intra-abdominal/pelvic abscess status post drainage Problems/Secondary Diagnoses: afib Immunizations: Have You Had Influenza Vaccine: Unknown History of Tetanus Vaccine?: Unknown History of Pneumococcal: Unknown History of Hepatitis B Vaccine: Unknown Procedures: Intra-abdominal/pelvic abscess status post drainage Consultations: Infectious disease, urologist, vice president biostatistics Medication Reconciliation New Medications: Ceftriaxone Sod (Rocephin) 1 Gm Inj 2 GM IV DAILY for 14 Days, VIAL Docusate Sodium (Colace) 100 Mg Cap 1 CAP PO BID PRN for constipation for 15 Days, #30 CAP Enoxaparin (Lovenox) 40 Mg/0.4 Ml Inj 1.2 ML SQ BID for 7 Days, #7 SYR Oxycodone/Acetaminophen 5MG/325MG (Percocet 5MG/325MG) Tab 1-2 TABLETS PO Q4H PRN for Pain, #30 TAB Metoprolol Tartrate (Lopressor) 25 Mg Tab 75 MG PO BID for 30 Days, #180 TAB Warfarin Sod (Coumadin) 5 Mg Tab 5 MG PO DAILY@16 for 30 Days, TAB Continued Medications: Ascorbic Acid (Vitamin C) 500 Mg Cap 500 MG PO QAM Aspirin (Aspirin Ec) 81 Mg Tab 81 MG PO QAM Coenzyme Q10 (Ubidecarenone) (Coq-10) 100 Mg Cap 100 MG PO QPM Docusate Sodium (Docusate Sodium) 100 Mg Cap 100 MG PO BID, CAP Lutein (Lutein) 6 Mg Cap 6 MG PO QAM Multivitamin (Multivitamin) Tab 1 TAB PO QAM, TAB Simvastatin (Zocor) 20 Mg Tab 120 MG PO QPM, TAB Tadalafil (Cialis) 20 Mg Tab 20 MG PO UD, TAB Discontinued Medications: Amlodipine (Norvasc) 5 Mg Tab 5 MG PO QPM, TAB Doxycycline Hyclate (Doxycycline Hyclate) 100 Mg Tab 100 MG PO Q12, TAB PRESCRIBED 06/23/2017, TAKE DIRECTED UNTIL GONE Losartan Potassium (Cozaar) 25 Mg Tab 25 MG PO QPM, TAB Discharge Exam up and walk , well, no spiking fever, CHARO drainage was removed no other complaint Review of Systems: Constitutional: No fever, No chills, No sweats, No weight loss, No weakness , No fatigue, No problem reported Eyes: No worsening of vision, No eye pain, No redness, No discharge, No diplopia, No problem reported ENT: No hearing loss, No unusual epistaxis, No nasal symptoms, No sore throat, No tinnitus, No dental problems, No trouble swallowing, No problem reported Respiratory: No cough, No sputum, No wheezing, No shortness of breath, No dyspnea on exertion, No dyspnea at rest, No hemoptysis, No problem reported Cardiovascular: No chest pain, No orthopnea, No PND, No edema, No claudication, No palpitations, No problem reported Abdomen: No pain, No nausea, No vomiting, No diarrhea, No constipation, No GI bleeding, No problem reported Musculoskeletal: No joint pain, No muscle pain, No swelling, No calf pain, No problem reported Genitourinary - Male: No hematuria, No dysuria, No urinary frequency, No urinary urgency, No urinary hesitancy, No urinary retention, No urinary incontinence, No penile discharge, No lesions, No impotence, No problem reported Neurologic: No memory loss, No paralysis, No weakness, No numbness/tingling , No vertigo, No balance problems, No problem reported Psychiatric: No depression symptoms, No anhedonism, No anxiety, No insomnia , No substance abuse, No problem reported Endocrine: No fatigue, No excessive thirst, No excessive urination, No problem reported Hematologic / Lymphatic: No abnormal bleeding/bruising, No clotting problems , No swollen lymph nodes, No night sweats, No problem reported Integumentary: No rash, No itch, No new/changing skin lesions, No color change, No bleeding, No problem reported Physical Exam: General Appearance: WD/WN, + mild distress, + obese Eyes: normal inspection, PERRL, EOMI ENT: normal ENT inspection, hearing grossly normal, pharynx normal Neck: supple, no adenopathy, thyroid normal Respiratory/Chest: chest non-tender, normal breath sounds, no respiratory distress, no accessory muscle use, + decreased breath sounds Cardiovascular: regular rate, rhythm, no edema, no gallop, no JVD Abdomen / GI: normal bowel sounds, non tender, soft, no organomegaly, no pulsatile mass, + pertinent finding (mid abdomen well healing scar) Extremities: normal inspection, no calf tenderness, normal capillary refill Neurologic/Psychiatric: rn managed care II-XII nml as tested, no motor/sensory deficits , alert, normal mood/affect, normal reflexes Skin: normal color, warm/dry Hospital Course 61-year-old admitted on 06/25/2017 Intra-abdominal/pelvic abscess Intra-abdominal/pelvic abscess with status post drainage consistent with abscess, follow-up CHARO drainage removed today post prostatectomy 18 days ago found to be staph resistant to clindamycin, percutaneous drainages failed, OR for incision and drainage on the evening of 07/01 Postop day 3 Ceftriaxone IV per infectious disease, recommendations 14 day course, may consider placing ultrasound-guided PERIPHERAL IV, WHICH CAN ACCOMPLISH THIS AT HOME picc was done, patient will get one dose of Rocephin at 2 PM today gu cardiology agree for patient to go home Hypertension/atrial fibrillation atrial fibrillation this has been chronic in the past has stopped Coumadin due to epistaxis rate control , per vice president biostatistics: pt tolerating heparin and coumadin well, will need lovenox bridge to therapeutic INR given that he has remained in sinus. pt ok with lovenox, stated that his sister in law is a home health aid and that his 2 children are pharmacist, all able to help with injections. Printing Sales Representative also mentioned , could also use NOAC, however, given perioperative period would be concerned with bleeding risk Hyperlipidemia--reportedly on simvastatin Per chart Daughter Alexandra was updated by hospitalist team by phone [phone], 07/01 Planning home with home healthcare IV infusion possible tomorrow Per case specialist pt has 100% coverage for home IV antibiotics. Will need script for medication and lab work. Discussed with patient, advised to wait until tomorrow to discharge because I worry about Lovenox co-pay and may have problem to get Lovenox from pharmacy in the weekend afternoon, he said he should be able to get on a medication and get injections and he will like to go home with his own risk and he weaning to take whatever co-pay of Lovenox for himself Instructions / Follow-Up you have Intra-abdominal/pelvic abscess status post drainage you need to continue Ceftriaxone IV per infectious disease for 14 day course you need to be seen by infectiosus disease in 7-10 days, RN please give DR. Fuchs office phone for patient to call Need to have Coumadin level checked in 2 days, and your primary care physician to adjust Coumadin dose, you are on Lovenox bridging for the Coumadin Lovenox will be 2 time a day, it need to be until PT/INR level more than 2, after INR more than 2, Lovenox will be stopped, Rx of INR is given The first dose of subcutaneous Lovenox will be given in hospital, the scond dose can be given self or your family at midnight tonight, tomorrow dose of Lovenox you can d o 2 dose a day with Lovenox sq at 9 AM and then 9 PM, You need to have labs of CBC CMP check every 1 week when you are on IV Rocephin infusion, prescription of the lab is given Follow-up urologist Ever Pagan as instructed follow up cardiology as instructed Audiology recommend to restart Coumadin clinic to monitor your Coumadin level, you need to talk this with your family doctor - you need to follow up with your primary care physician in 1 week, - take medication as instructed, never overdose or any misuse, or take with alcohol, because misuse of medicine may cause organ damage or , call your primary care physician if have questions of medicaitons. - call your primary care physician OR go to local emergency room if has any fever/chill, chest pain, shortness of breathing, nausea/vomiting/abdominal pain , facial droop/slurry speech/local weakness, or if has any questions. - fall precaution - diet as instructed - you need to follow up with your subspecialist - you should understand that it is important to follow up the above instruction , and "not following the above instruction" may cause delayed or missed care of your medical conditions which may cause permanent organ damage and even . Current Hospital Diet Total Time Spent: Greater than 30 minutes This includes examination of the patient, discharge planning, medication reconciliation, and communication with other providers. Discharge Instructions Please refer to the electronic Patient Visit Report (Discharge Instructions) for additional information. Additional Copies To Ever Lincoln D.O.; Clifford Fuchs MD; Ayden Sanchez MD; Miguel Hudson M.D.
== END 2017-07-04 15:10 | disposition home or self-care (01) | DRG 856 ==
LOC: C.EDB 14:18 → C.MSW 21:16 → ENRESERV 21:26
PROVIDERS: ADMIT Hospitalist; ATTEND Hospitalist
PROC: 0J9C0ZX Drainage of Pelvic Region Subcutaneous Tissue and Fascia, Open Approach, Diagnostic (ICD-10-PCS; principal; 2017-06-28)
PROC: 0W9F0ZX Drainage of Abdominal Wall, Open Approach, Diagnostic (ICD-10-PCS; principal; 2017-06-28)
PROC: 079 Lymphatic and Hemic Systems, Drainage (ICD-10-PCS; principal; 2017-06-28)
PROC: 0WQF0ZZ Repair Abdominal Wall, Open Approach (ICD-10-PCS; principal; 2017-06-28)
DX: T81.4XXA Infection following a procedure, initial encounter (principal); K65.1 Peritoneal abscess; I10 Essential (primary) hypertension; I48.91 Unspecified atrial fibrillation; E78.5 Hyperlipidemia, unspecified; R91.1 Solitary pulmonary nodule; R07.81 Pleurodynia; I48.2 Chronic atrial fibrillation; B95.61 Methicillin susceptible Staphylococcus aureus infection as the cause of diseases classified elsewhere; D72.829 Elevated white blood cell count, unspecified; F17.200 Nicotine dependence, unspecified, uncomplicated; Z82.49 Family history of ischemic heart disease and other diseases of the circulatory system; Z98.84 Bariatric surgery status; Z16.20 Resistance to unspecified antibiotic; Z85.46 Personal history of malignant neoplasm of prostate; Z83.3 Family history of diabetes mellitus; Z90.79 Acquired absence of other genital organ(s); Z79.82 Long term (current) use of aspirin; L04.1 Acute lymphadenitis of trunk; M79.81 Nontraumatic hematoma of soft tissue; K45.8 Other specified abdominal hernia without obstruction or gangrene; Y83.8 Other surgical procedures as the cause of abnormal reaction of the patient, or of later complication, without mention of misadventure at the time of the procedure

== ENCOUNTER → 2017-10-08 | Outpatient (CLI) | payer OTHER ==
[~2017-10-08] MED LIST changes: -ACET-749 PO; -AMLO-110 PO; -ASPCH81X PO; +ASPI81TA28 PO; -CIPR1TAB10 PO; -CLC100 PO; +CMD5 PO; +DOCU100C31 PO; -DTR5 PO; -EYE OPB; -LOSA1TAB PO; +LPR25 PO; +OXYC-57 PO; +TADA20TA PO
== END | disposition home or self-care (01) ==
LOC: C.LABSPEC 12:54
PROVIDERS: ATTEND Urology
DX: I89.8 Other specified noninfective disorders of lymphatic vessels and lymph nodes (principal)

== ENCOUNTER → 2017-12-13 | Outpatient (CLI) | payer OTHER ==
[2017-12-13 13:37] LABS: BASO % 0.6 %; BASO ABS # 0.04 K/uL (0-0.2); EOS % 5.6 %; EOS ABS # 0.36 K/uL (0-0.5); HEMATOCRIT 48.9 % (42-52); IG# 0.05 K/uL (0.00-0.02); LYMPH % 32.1 %; LYMPH ABS # 2.05 K/uL (1.2-3.4); MEAN CELL VOLUME 88.6 fL (80-100); MEAN CORPUSCULAR HEMOGLOBIN 30.8 pg (25-34); MEAN CORPUSCULAR HGB CONC 34.8 g/dl (32-36); MEAN PLATELET VOLUME 9.7 fL (7.4-10.4); MONO % 8.3 %; MONO ABS # 0.53 K/uL (0.11-0.59); NEUT % 52.6 %; NEUT ABS # 3.35 K/uL (1.4-6.5); PLATELET COUNT 194 K/uL (130-400); RED CELL DISTRIBUTION WIDTH SD 48.3 fL (36.4-46.3); WHITE BLOOD COUNT 6.38 K/uL (4.8-10.8)
[2017-12-13 13:56] LABS: ALBUMIN 3.6 gm/dl (3.4-5.0); ALT/SGPT 30 U/L (12-78); AST/SGOT 24 U/L (15-37); BLOOD UREA NITROGEN 16 mg/dl (7-18); CALCIUM 8.8 mg/dl (8.5-10.1); CARBON DIOXIDE 21 mmol/L (21-32); CREATININE 1.08 mg/dl (0.60-1.40); GLUCOSE 111 mg/dl (70-99); POTASSIUM 4.5 mmol/L (3.5-5.1); SODIUM 136 mmol/L (136-145)
[2017-12-13 13:59] LABS: ALKALINE PHOSPHATASE 68 U/L (45-117); CHOLESTEROL 148 mg/dl (0-200); LDL CHOLESTEROL CALCULATED 82 mg/dl; TOTAL PROTEIN 7.5 gm/dl (6.4-8.2)
== END | disposition home or self-care (01) ==
LOC: C.LABSPEC 12:38
PROVIDERS: ATTEND Family Medicine
DX: E78.2 Mixed hyperlipidemia (principal)

== ENCOUNTER → 2018-06-13 | Outpatient (CLI) | payer OTHER ==
[~2018-06-13] MED LIST changes: -OXYC-57 PO
[2018-06-13 13:36] LABS: BASO ABS # 0.07 K/uL (0-0.2); EOS % 9.8 %; EOS ABS # 0.67 K/uL (0-0.5); HEMOGLOBIN 17.1 g/dL (14.0-18.0); IG# 0.02 K/uL (0.00-0.02); LYMPH % 28.4 %; LYMPH ABS # 1.95 K/uL (1.2-3.4); MEAN CELL VOLUME 91.4 fL (80-100); MEAN CORPUSCULAR HEMOGLOBIN 32.6 pg (25-34); MEAN CORPUSCULAR HGB CONC 35.6 g/dl (32-36); MEAN PLATELET VOLUME 9.8 fL (7.4-10.4); MONO % 9.5 %; MONO ABS # 0.65 K/uL (0.11-0.59); NEUT ABS # 3.51 K/uL (1.4-6.5); NUCLEATED RED BLOOD CELL ABS 0.05 K/uL (0-0); PLATELET COUNT 208 K/uL (130-400); RED CELL DISTRIBUTION WIDTH SD 47.2 fL (36.4-46.3); WHITE BLOOD COUNT 6.87 K/uL (4.8-10.8)
[2018-06-13 14:04] LABS: ALBUMIN 3.8 gm/dl (3.4-5.0); BLOOD UREA NITROGEN 18 mg/dl (7-18); CALCIUM 8.9 mg/dl (8.5-10.1); CARBON DIOXIDE 24 mmol/L (21-32); CREATININE 1.24 mg/dl (0.60-1.40); GLUCOSE 113 mg/dl (70-99); POTASSIUM 4.5 mmol/L (3.5-5.1); SODIUM 137 mmol/L (136-145); TOTAL PROTEIN 7.7 gm/dl (6.4-8.2)
[2018-06-13 14:05] LABS: ALKALINE PHOSPHATASE 70 U/L (45-117); ALT/SGPT 34 U/L (12-78); AST/SGOT 28 U/L (15-37); CHOLESTEROL 133 mg/dl (0-200); LDL CHOLESTEROL CALCULATED 67 mg/dl
[2018-06-13 14:19] LABS: HEMOGLOBIN A1C 5.9 % (4.5-5.6)
== END | disposition home or self-care (01) ==
LOC: C.LABSPEC 13:00
PROVIDERS: ATTEND Family Medicine
DX: E78.2 Mixed hyperlipidemia (principal); I10 Essential (primary) hypertension; R73.9 Hyperglycemia, unspecified; C61 Malignant neoplasm of prostate